=== PATIENT | female | born 1970 | race Caucasian/White ===

== ENCOUNTER 2017-11-09 10:09 | Emergency (ER) | payer MEDICAID ==
--- NOTE | 2017-11-09 11:39 | EDM.PDOC ---
ED HPI GENERAL MEDICAL PROBLEM - General Chief Complaint: Cardiovascular Problem Stated Complaint: HIGH BLOOD PRESSURE Time Seen by Provider: 11/09/17 11:31 Source of Information: Reports: Patient History Limitations: Reports: No Limitations - History of Present Illness INITIAL COMMENTS - FREE TEXT/NARRATIVE: 47-year-old female presents to the ED after being seen initially at the [facility] clinic and diagnosed with significant hypertension. BP there was greater than 190 and diastolic was around 114. Apparently the patient was diagnosed with hypertension nearly 2 years ago was on medication temporarily and discontinued. Without of this medication was most likely labetalol. She is relatively asymptomatic with no visual field changes no real headache. Perhaps increased fatigue. As far she knows she is not diabetic. She does several from being overweight. She is a never smoker and does not use street drugs. 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 She states she scratches at night - Past Surgical History Other GI Surgeries/Procedures: resection Social & Family History - Tobacco Use Smoking Status *Q: Never Smoker Second Hand Smoke Exposure: No - Alcohol Use Days Per Week of Alcohol Use: 0 Number of Drinks Per Day: 0 Total Drinks Per Week: 0 - Recreational Drug Use Recreational Drug Use: No - Living Situation & Occupation Living situation: Reports: Single Occupation: Unemployed ED ROS GENERAL - Review of Systems Review Of Systems: See Below Constitutional: Reports: Malaise, Fatigue. Denies: Fever, Chills HEENT: Reports: No Symptoms Respiratory: Reports: Shortness of Breath Cardiovascular: Reports: Blood Pressure Problem ( chronically), Dyspnea on Exertion (On exertion) Endocrine: Reports: Fatigue (see history of present illness ) GI/Abdominal: Reports: Constipation (Occasional problems) : Reports: No Symptoms Musculoskeletal: Reports: Back Pain, Joint Pain Skin: Reports: No Symptoms ([place] hips at times) Neurological: Reports: No Symptoms Psychiatric: Reports: No Symptoms ED EXAM, GENERAL - Physical Exam Exam: See Below Exam Limited By: Uncooperative General Appearance: WD/WN, Anxious, Mild Distress Eye Exam: Bilateral Eye: A-V [place] (Mild bilaterally), Normal Inspection ( Admits to being quite anxious and she is here but is starting to feel somewhat better.), PERRL Throat/Mouth: Normal Inspection, Normal Teeth, Normal Oropharynx, Normal Voice Head: Atraumatic, Normocephalic, Sinus Tenderness Neck: Normal Inspection, Supple, Non-Tender, Full Range of Motion Respiratory/Chest: No Respiratory Distress, Lungs Clear, Normal Breath Sounds, No Accessory Muscle Use, Chest Non-Tender Cardiovascular: Normal Peripheral Pulses, Regular Rate, Rhythm, No Edema, No Gallop, No Murmur GI/Abdominal: Other (Has a large wound just to the right of her umbilicus apparently developed a small bowel obstruction at age 26 and the wound dehisced became severely secondarily infected. Was packed open until it healed which took several months. Abdominal girth limits ability to palpate solid organs.). No: Guarding, Rigid, Rebound, Tender Back Exam: Normal Inspection, Full Range of Motion. No: CVA Tenderness (L), CVA Tenderness (R) Extremities: Normal Inspection, Normal Range of Motion, Non-Tender, Pedal Edema (1+ pitting edema both lower extremities) Neurological: Alert, Oriented ( to just above the ankles.), CN II-XII Intact, Normal Cognition, Normal Gait Psychiatric: Normal Affect, Normal Mood Skin Exam: Warm, Dry, Intact, Normal Color, No Rash EKG INTERPRETATION EKG Date: 11/09/17 Time: 10:22 Rhythm: Other (Sinus tachycardia) Rate (Beats/Min): 112 [place]: LAD-Left [place] Deviation (Borderline left axis deviation and +1) P-Wave: Enlarged (Evidence of by atrial hypertrophy.) QRS: Other (There is near Q-wave V1 to V4 there are also Q waves in 3 and aVF. Cannot rule out inferior wall myocardial infarction. There is decreased voltage in the limb leads. cannot rule out an old anteroseptal myocardial infarction.) ST-T: Normal QT: Normal EKG Interpretation Comments: Abnormal ECG Course - Vital Signs Last Recorded V/S: Last Vital Signs Temp 36.6 C 11/09/17 10:25 Pulse 97 11/09/17 15:00 Resp 18 11/09/17 15:00 BP 156/92 H 11/09/17 15:00 Pulse Ox 95 11/09/17 15:00 - Orders/Labs/Meds Orders: Active Orders 24 hr Category Date Time Status EKG Documentation Completion [RC] STAT Care 11/09/17 11:34 Active Peripheral IV Care [RC] . DIRECTED Care 11/09/17 11:48 Active Peripheral IV Insertion Adult [OM.PC] Stat Oth 11/09/17 11:48 Ordered Labs: Laboratory Tests 11/09/17 11/09/17 11/09/17 Range/Units 11:50 11:50 11:50 WBC 10.33 H (3.98-10.04) K/mm3 RBC 4.89 (3.98-5.22) M/mm3 Hgb 12.1 (11.2-15.7) gm/L Hct 39.4 (34.1-44.9) % MCV 80.6 (79.4-94.8) fl MCH 24.7 L (25.6-32.2) pg MCHC 30.7 L (32.2-35.5) g/dl RDW Std Deviation 43.8 (36.4-46.3) fL Plt Count 251 (182-369) K/mm3 MPV 11.4 (9.4-12.3) fl Neutrophils % (Manual) 83 H (40-60) % Band Neutrophils % 1 (0-10) % Lymphocytes % (Manual) 10 L (20-40) % Atypical Lymphs % 0 % Monocytes % (Manual) 4 (2-10) % Eosinophils % (Manual) 2 (0.7-5.8) % Basophils % (Manual) 0 L (0.1-1.2) Platelet Estimate Adequate Hypochromasia 1+ slight Microcytosis 1+ slight Macrocytosis 1+ slight RBC Morph Comment Not Reportable PT 10.4 (8.0-13.0) SECONDS INR 0.97 Sodium 140 (136-145) mEq/L Potassium 3.5 (3.5-5.1) mEq/L Chloride 102 (98-107) mEq/L Carbon Dioxide 28 (21-32) mEq/L Anion Gap 13.5 (5-15) BUN 7 (7-18) mg/dL Creatinine 0.5 L (0.55-1.02) mg/dL Est Cr Clr Drug Dosing 141.82 mL/min Estimated GFR (MDRD) > 60 (>60) mL/min BUN/Creatinine Ratio 14.0 (14-18) Glucose 107 H (74-106) mg/dL Hemoglobin A1c (4.50-6.20) % Calcium 8.8 (8.5-10.1) mg/dL Magnesium 1.7 L (1.8-2.4) mg/dl Total Bilirubin 0.4 (0.2-1.0) mg/dL AST 42 H (15-37) U/L ALT 31 (14-59) U/L Alkaline Phosphatase 129 H (46-116) U/L Troponin I < 0.017 (0.00-0.056) ng/mL C-Reactive Protein 2.1 H* (<1.0) mg/dL NT-Pro-B Natriuret Pep (0-125) pg/mL Total Protein 7.6 (6.4-8.2) g/dl Albumin 3.1 L (3.4-5.0) g/dl Globulin 4.5 gm/dL Albumin/Globulin Ratio 0.7 L (1-2) TSH 3rd Generation 1.446 (0.358-3.74) uIU/mL 11/09/17 11/09/17 Range/Units 11:50 11:50 WBC (3.98-10.04) K/mm3 RBC (3.98-5.22) M/mm3 Hgb (11.2-15.7) gm/L Hct (34.1-44.9) % MCV (79.4-94.8) fl MCH (25.6-32.2) pg MCHC (32.2-35.5) g/dl RDW Std Deviation (36.4-46.3) fL Plt Count (182-369) K/mm3 MPV (9.4-12.3) fl Neutrophils % (Manual) (40-60) % Band Neutrophils % (0-10) % Lymphocytes % (Manual) (20-40) % Atypical Lymphs % % Monocytes % (Manual) (2-10) % Eosinophils % (Manual) (0.7-5.8) % Basophils % (Manual) (0.1-1.2) Platelet Estimate Hypochromasia Microcytosis Macrocytosis RBC Morph Comment PT (8.0-13.0) SECONDS INR Sodium (136-145) mEq/L Potassium (3.5-5.1) mEq/L Chloride (98-107) mEq/L Carbon Dioxide (21-32) mEq/L Anion Gap (5-15) BUN (7-18) mg/dL Creatinine (0.55-1.02) mg/dL Est Cr Clr Drug Dosing mL/min Estimated GFR (MDRD) (>60) mL/min BUN/Creatinine Ratio (14-18) Glucose (74-106) mg/dL Hemoglobin A1c 5.00 (4.50-6.20) % Calcium (8.5-10.1) mg/dL Magnesium (1.8-2.4) mg/dl Total Bilirubin (0.2-1.0) mg/dL AST (15-37) U/L ALT (14-59) U/L Alkaline Phosphatase (46-116) U/L Troponin I (0.00-0.056) ng/mL C-Reactive Protein (<1.0) mg/dL NT-Pro-B Natriuret Pep 82 (0-125) pg/mL Total Protein (6.4-8.2) g/dl Albumin (3.4-5.0) g/dl Globulin gm/dL Albumin/Globulin Ratio (1-2) TSH 3rd Generation (0.358-3.74) uIU/mL Meds: Medications Discontinued Medications Generic Name Dose Route Start Last Admin Trade Name Freq PRN Reason Stop Dose Admin Amlodipine Besylate 10 mg 11/09/17 11:47 11/09/17 11:58 Norvasc PO 11/09/17 11:48 10 mg ONETIME ONE Administration Enalaprilat 1.25 mg 11/09/17 13:06 11/09/17 13:10 Vasotec Iv IVPUSH 11/09/17 13:07 1.25 mg ONETIME ONE Administration Labetalol HCl 20 mg 11/09/17 11:47 11/09/17 11:56 Normodyne IVPUSH 11/09/17 11:48 20 ml ONETIME ONE Administration Protocol Sodium Chloride 10 ml 11/09/17 11:48 11/09/17 11:59 Saline Flush FLUSH 10 ml ASDIRECTED PRN Administration Keep Vein Open - Radiology Interpretation Free Text/Narrative:: 47-year-old female sent across from [facility] for evaluation of uncontrolled hypertension. She has seen the doctor very often but blood pressure today at the clinic was greater than 195/114. She is relatively asymptomatic in terms of high blood pressure symptoms. There are no obvious and organ injuries or damage at this time. ECG is definitely abnormal however with possible old anteroseptal and inferior wall myocardial infarction. She shows no signs of congestive failure. BP drifted down to around 1 9299 at its lowest. She will therefore will require treatment. She will have a chest x-ray routine lab work and urinalysis performed. Given labetalol 20 mg IV bolus and Norvasc 10 mg by mouth. - Re-Assessments/Exams Free Text/Narrative Re-Assessment/Exam: 11/09/17 12:13 chest x-ray reveals moderate cardiomegaly. Lung gonzales are otherwise clear. 11/09/17 13:08 White count is 10.33 with 83% neutrophils 1% band cells reported. Hemoglobin is 12.1. Hematocrit is 39.4. Platelet count normal at 251, 000. PT is 10.4 with an INR of 0.97. Sodium was 140 with potassium low-normal at 3.5. Chloride 102 bicarbonate 28. And a gap is 13.5 with a BUN of 7. Creatinine is 0.5. EGFR is greater than 60. Glucose 107. Hemoglobin A1c is 5.0. Calcium 8.8. Magnesium slightly low at 1.7. Bilirubin 0.4 AST is mildly elevated at 42. Alkaline phosphatase is also mildly elevated 129. Cardiac markers reveal a troponin I of less than 0.017. C-reactive protein is mildly elevated at 2.1. BNP is normal at 82. TSH is 1.446. Normal 11/09/17 14:55: Patient is feeling improved. Blood pressures come down nicely. She had initial dose of labetalol 20 mg IV and Norvasc 10 mg by mouth. Subsequent he had Vasotec 1.25 mg given intravenously once labs returned and revealed normal renal function. Blood pressure at the time of discharge was 142 over 66. She will be discharged home on lisinopril 20 mg daily and Norvasc 10 mg daily with lisinopril to be taken tonight and again tomorrow morning and Norvasc at bedtime. She is to follow-up in the clinic within the next 10 days for blood pressure review. She has a cuff at home and will be started check her blood sugars on a regular random basis. Departure - Departure Time of Disposition: 15:09 Disposition: Home, Self-Care 01 Condition: Fair Clinical Impression: Essential hypertension Prescriptions: amLODIPine Besylate [Norvasc] 10 mg PO DAILY #30 tablet Lisinopril 20 mg PO DAILY #30 tablet Instructions: Hypertension, [id number] Referrals: Susan Yi PA-C [Primary Care Provider] - Forms: ED Department Discharge Additional Instructions: Evaluation the emergency room today in regards to uncontrolled high blood pressure. You have states 3 essential hypertension pressure was staying around 192 greater than 110. You're therefore treated in the emergency room with intravenous medication labetalol 20 mg and oral medications Norvasc 10 mg and intravenous Vasotec 1.25 mg to bring her blood pressure under control. BP at the time of discharge was 142/66. Treatment at home is Norvasc 10 mg daily and lisinopril 20 mg once daily. I would suggest taking one of the lisinopril tablets as soon as you get them today and start both once daily in the morning tomorrow. Check blood pressures at home and blood pressures will slowly improve over the next few weeks. Follow-up in the clinic in 2 weeks time with personal care provider Susan Yi. They continue all other current medications including your sleep aid and your - My Orders Last 24 Hours: My Active Orders 11/09/17 11:34 EKG Documentation Completion [RC] STAT 11/09/17 11:48 Peripheral IV Care [RC] . DIRECTED Peripheral IV Insertion Adult [OM.PC] Stat - Assessment/Plan Last 24 Hours: My Active Orders 11/09/17 11:34 EKG Documentation Completion [RC] STAT 11/09/17 11:48 Peripheral IV Care [RC] . DIRECTED Peripheral IV Insertion Adult [OM.PC] Stat
[2017-11-09] MEDS: Labetalol 100 MG/20 ML MDV IVPUSH ONE (11:56)
[2017-11-09] MEDS: amLODIPine 10 MG Tab PO ONE (11:58)
[2017-11-09] MEDS: Sodium Chloride 0.9% 10 ML Syringe FLUSH PRN (11:59)
--- NOTE | 2017-11-09 12:39 | CR ---
Chest: Portable view of the chest was obtained. Comparison: No prior chest x-ray. Heart size is slightly prominent but accentuated from portable technique. Mediastinum is normal. Lungs are clear. Bony grossly intact. Impression: 1. Nothing acute is identified on portable chest x-ray. Diagnostic code #1
[2017-11-09] MEDS: Enalaprilat 1.25 MG/ML SDV IVPUSH ONE (13:10)
[2017-11-09 15:28] VITALS: BP 156/92
== END 2017-11-09 15:25 | disposition home or self-care (01) ==
LOC: JD.ED 10:09
DX: I10 Essential (primary) hypertension (principal); Z91.041 Radiographic dye allergy status; Z79.899 Other long term (current) drug therapy
CPT/HCPCS: 36415; 71045; 80053; 83036; 83735; 83880; 84443; 84484; 85025; 85610; 86140; 93005; 96374; 96375; 99284; A9270; J7050; 93010

== ENCOUNTER 2018-11-25 11:37 | Emergency (ER) | payer MEDICAID ==
[2018-11-25 11:48] VITALS: BP 170/91
--- NOTE | 2018-11-25 14:04 | EDM.PDOC ---
ED HPI GENERAL MEDICAL PROBLEM - General Chief Complaint: Cardiovascular Problem Stated Complaint: HIGH BP - DIZZINESS Time Seen by Provider: 11/25/18 12:16 Source of Information: Reports: Patient, RN Notes Reviewed - History of Present Illness INITIAL COMMENTS - FREE TEXT/NARRATIVE: 48-year-old lady comes in with symptoms of mild shortness of breath, nonspecific dizziness for the last 2 or 3 days. She is on multiple medications for hypertension that was started about one year ago. She is only had maybe 1 follow-up visit since these meds were all prescribed about a year ago. She states her legs are chronically swollen and not really worse than usual at this time. Other than the shortness of breath no chest pain. No recent cough fever or chills. She is not known to be diabetic. She is chronically overweight with a current weight of 127 kg. - Related Data Allergies Allergy/AdvReac Type Severity Reaction Status Date / Time IV Contrast Dye Allergy Hives Uncoded 11/25/18 11:48 Home Meds: Home Meds amLODIPine Besylate [Norvasc] 10 mg PO DAILY #30 tablet 11/09/17 [Rx] Furosemide 20 mg PO DAILY #30 tablet 11/25/18 [Rx] Lisinopril 30 mg PO DAILY 11/25/18 [History] hydroCHLOROthiazide [Hydrochlorothiazide] 50 mg PO DAILY 11/25/18 [History] Past Medical History Cardiovascular History: Reports: Hypertension Other Cardiovascular History: pt states she had a murmur as a baby which resolved. 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 She states she scratches at night - Past Surgical History GI Surgical History: Reports: Appendectomy Other GI Surgeries/Procedures: resection Social & Family History - Tobacco Use Smoking Status *Q: Never Smoker - Caffeine Use Caffeine Use: Reports: Soda - Recreational Drug Use Recreational Drug Use: No - Living Situation & Occupation Living situation: Reports: Single Occupation: Unemployed ED ROS GENERAL - Review of Systems Review Of Systems: See Below Constitutional: Denies: Fever, Chills, Diaphoresis HEENT: Denies: Sinus Problem, Throat Pain Respiratory: Reports: Shortness of Breath Cardiovascular: Reports: Edema (Moderate bilateral chronically). Denies: Chest Pain GI/Abdominal: Denies: Abdominal Pain, Nausea, Vomiting Musculoskeletal: Denies: Back Pain, Leg Pain Skin: Reports: No Symptoms Neurological: Denies: Numbness, Tingling, Trouble Speaking, Difficulty Walking, Weakness ED EXAM, GENERAL - Physical Exam Exam: See Below General Appearance: Alert, No Apparent Distress Eye Exam: Bilateral Eye: PERRL Throat/Mouth: Normal Inspection, Normal Oropharynx Neck: Supple Respiratory/Chest: No Respiratory Distress, Lungs Clear, Normal Breath Sounds Cardiovascular: Tachycardia GI/Abdominal: Soft, Non-Tender Back Exam: No: CVA Tenderness (L), CVA Tenderness (R) Extremities: Pedal Edema. No: Leg Pain (Moderate bilateral), Increased Warmth, Redness Neurological: No Motor/Sensory Deficits Skin Exam: Warm, Dry, Normal Color Course - Vital Signs Last Recorded V/S: Last Vital Signs Temp 98.2 F 11/25/18 11:45 Pulse 121 H 11/25/18 11:45 Resp 18 11/25/18 11:45 BP 170/91 H 11/25/18 11:45 Pulse Ox 94 L 11/25/18 11:45 - Orders/Labs/Meds Orders: Active Orders 24 hr Category Date Time Status EKG 12 Lead [EKG Documentation Completion] [RC] STAT Care 11/25/18 12:27 Active Chest 1V Frontal [CR] Stat Exams 11/25/18 12:26 Taken Labs: Laboratory Tests 11/25/18 11/25/18 11/25/18 Range/Units 12:40 12:40 12:40 WBC 11.55 H (3.98-10.04) K/mm3 RBC 4.79 (3.98-5.22) M/mm3 Hgb 11.4 (11.2-15.7) gm/L Hct 39.8 (34.1-44.9) % MCV 83.1 (79.4-94.8) fl MCH 23.8 L (25.6-32.2) pg MCHC 28.6 L (32.2-35.5) g/dl RDW Std Deviation 54.3 H (36.4-46.3) fL Plt Count 256 (182-369) K/mm3 MPV 11.2 (9.4-12.3) fl Neut % (Auto) 81.2 H (34.0-71.1) % Lymph % (Auto) 11.2 L (19.3-51.7) % [place] % (Auto) 5.5 (4.7-12.5) % Eos % (Auto) 1.6 (0.7-5.8) Baso % (Auto) 0.2 (0.1-1.2) % Neut # (Auto) 9.37 H (1.56-6.13) K/mm3 Lymph # (Auto) 1.29 (1.18-3.74) K/mm3 [place] # (Auto) 0.64 H (0.24-0.36) K/mm3 Eos # (Auto) 0.19 (0.04-0.36) K/mm3 Baso # (Auto) 0.02 (0.01-0.08) K/mm3 Manual Slide Review Normal smear Sodium 139 (136-145) mEq/L Potassium 3.1 L (3.5-5.1) mEq/L Chloride 100 (98-107) mEq/L Carbon Dioxide 32 (21-32) mEq/L Anion Gap 10.1 (5-15) BUN 16 (7-18) mg/dL Creatinine 0.9 (0.55-1.02) mg/dL Est Cr Clr Drug Dosing 72.34 mL/min Estimated GFR (MDRD) > 60 (>60) mL/min BUN/Creatinine Ratio 17.8 (14-18) Glucose 115 H (74-106) mg/dL Calcium 9.1 (8.5-10.1) mg/dL Total Bilirubin 0.5 (0.2-1.0) mg/dL AST 36 (15-37) U/L ALT 30 (14-59) U/L Alkaline Phosphatase 120 H (46-116) U/L Total Protein 8.2 (6.4-8.2) g/dl Albumin 3.1 L (3.4-5.0) g/dl Globulin 5.1 gm/dL Albumin/Globulin Ratio 0.6 L (1-2) TSH 3rd Generation 2.105 (0.358-3.74) uIU/mL Urine Color (Yellow) Urine Appearance (Clear) Urine pH (5.0-8.0) Ur Specific [place] (1.005-1.030) Urine Protein (Negative) Urine Glucose (UA) (Negative) Urine Ketones (Negative) Urine Occult Blood (Negative) Urine Nitrite (Negative) Urine Bilirubin (Negative) Urine Urobilinogen (0.2-1.0) Ur Leukocyte Esterase (Negative) Urine RBC (0-5) /hpf Urine WBC (0-5) /hpf Ur Epithelial Cells (0-5) /hpf Urine Bacteria (FEW) /hpf Urine Mucus (FEW) /hpf 11/25/18 Range/Units 13:15 WBC (3.98-10.04) K/mm3 RBC (3.98-5.22) M/mm3 Hgb (11.2-15.7) gm/L Hct (34.1-44.9) % MCV (79.4-94.8) fl MCH (25.6-32.2) pg MCHC (32.2-35.5) g/dl RDW Std Deviation (36.4-46.3) fL Plt Count (182-369) K/mm3 MPV (9.4-12.3) fl Neut % (Auto) (34.0-71.1) % Lymph % (Auto) (19.3-51.7) % [place] % (Auto) (4.7-12.5) % Eos % (Auto) (0.7-5.8) Baso % (Auto) (0.1-1.2) % Neut # (Auto) (1.56-6.13) K/mm3 Lymph # (Auto) (1.18-3.74) K/mm3 [place] # (Auto) (0.24-0.36) K/mm3 Eos # (Auto) (0.04-0.36) K/mm3 Baso # (Auto) (0.01-0.08) K/mm3 Manual Slide Review Sodium (136-145) mEq/L Potassium (3.5-5.1) mEq/L Chloride (98-107) mEq/L Carbon Dioxide (21-32) mEq/L Anion Gap (5-15) BUN (7-18) mg/dL Creatinine (0.55-1.02) mg/dL Est Cr Clr Drug Dosing mL/min Estimated GFR (MDRD) (>60) mL/min BUN/Creatinine Ratio (14-18) Glucose (74-106) mg/dL Calcium (8.5-10.1) mg/dL Total Bilirubin (0.2-1.0) mg/dL AST (15-37) U/L ALT (14-59) U/L Alkaline Phosphatase (46-116) U/L Total Protein (6.4-8.2) g/dl Albumin (3.4-5.0) g/dl Globulin gm/dL Albumin/Globulin Ratio (1-2) TSH 3rd Generation (0.358-3.74) uIU/mL Urine Color Yellow (Yellow) Urine Appearance Clear (Clear) Urine pH 7.0 (5.0-8.0) Ur Specific [place] 1.015 (1.005-1.030) Urine Protein 1+ H (Negative) Urine Glucose (UA) Negative (Negative) Urine Ketones Negative (Negative) Urine Occult Blood 1+ H (Negative) Urine Nitrite Negative (Negative) Urine Bilirubin Negative (Negative) Urine Urobilinogen 1.0 (0.2-1.0) Ur Leukocyte Esterase Negative (Negative) Urine RBC 5-10 H (0-5) /hpf Urine WBC 0-5 (0-5) /hpf Ur Epithelial Cells 0-5 (0-5) /hpf Urine Bacteria Few (FEW) /hpf Urine Mucus Few (FEW) /hpf - Re-Assessments/Exams Free Text/Narrative Re-Assessment/Exam: 11/25/18 15:53 Labs did come back relatively normal. CXR shows very mild pulmonary congestion. Patient does have quite severe peripheral leg edema, good retention entire body and agree. Her blood pressure is mostly ran in the 140s to low 150s systolic. She did have some readings down into the 130s and one reading as low as 128 systolic. She does not feel dizzy or short of breath while here in the ED. Her heart rate continues to run about 105. I have elected to add furosemide 20 mg daily to her medical regimen. Urine did show a very small amount of protein. BUN/creatinine were good. Discharge instructions as documented. Departure - Departure Time of Disposition: 14:49 Disposition: Home, Self-Care 01 Condition: Fair Clinical Impression: Essential hypertension Prescriptions: Furosemide 20 mg PO DAILY #30 tablet Instructions: Hypertension, [id number] Referrals: Susan Yi PA-C [Primary Care Provider] - Forms: ED Department Discharge Additional Instructions: Continue your current blood pressure and other medications as prescribed, start Lasix or furosemide 20 mg daily. A prescription has been [facility]. Try avoid salt as best you can, elevate legs as much as possible when not walking. Try start a regular exercise program as best you can. Research the Mediterranean diet which is high in fruit and vegetables, moderate protein. Try avoid flour and sugar foods as best you can. Check your weight daily and keep a log for your follow-up clinic visit. Plan to see Susan in about 4-5 days for recheck. Call Tuesday morning for appointment. Return to ED as needed if symptoms worsening in any way. - My Orders Last 24 Hours: My Active Orders 11/25/18 12:26 Chest 1V Frontal [CR] Stat 11/25/18 12:27 EKG 12 Lead [EKG Documentation Completion] [RC] STAT - Assessment/Plan Last 24 Hours: My Active Orders 11/25/18 12:26 Chest 1V Frontal [CR] Stat 11/25/18 12:27 EKG 12 Lead [EKG Documentation Completion] [RC] STAT
--- NOTE | 2018-11-26 07:08 | CR ---
Chest: Portable view of the chest was obtained. Comparison: Prior chest x-ray of 11/09/17. Parenchymal density is seen behind the heart. This is most likely due to hiatal hernia. Heart size within normal limits for portable technique. Lungs are clear with no acute parenchymal change. Bony structures are grossly intact. Impression: 1. Probable hiatal hernia. 2. Nothing acute is otherwise seen on portable chest x-ray. Diagnostic code #2
== END 2018-11-25 15:17 | disposition home or self-care (01) ==
LOC: JD.ED 11:37
DX: I10 Essential (primary) hypertension (principal); Z79.899 Other long term (current) drug therapy; Z91.041 Radiographic dye allergy status
CPT/HCPCS: 36415; 71045; 71045-26; 80053; 81001; 84443; 85025; 93005; 93010; 99283; 99285-25

== ENCOUNTER 2019-02-15 11:43 | Emergency (ER) | payer MEDICAID ==
[2019-02-15 11:52] VITALS: BP 161/96
[2019-02-15] MEDS ORDERED: diphenhydrAMINE 50 MG/ML SDV IVPUSH ONE (12:07)
[2019-02-15] MEDS ORDERED: methylPREDNISolone Sodium Succinate 125 MG/2 ML SDV IVPUSH ONE (12:07)
[2019-02-15] MEDS ORDERED: Albuterol/Ipratropium 3.0-0.5 MG/3 ML Neb Soln NEB ONE (12:08)
[2019-02-15] MEDS ORDERED: Iohexol 350 MG/ML 75 ML Bottle IVPUSH ONE ×2 (12:18→12:45)
[2019-02-15] MEDS: Sodium Chloride 0.9% 10 ML Syringe FLUSH PRN ×2 (12:20→12:45)
[2019-02-15] MEDS ORDERED: Enoxaparin 120 MG/0.8 ML Syringe SUBCUT ONE (13:23)
--- NOTE | 2019-02-15 13:54 | CR ---
Chest: Portable view of the chest was obtained. Comparison: Prior chest x-ray of 11/25/18. Underpenetration is seen due to patient body habitus. Heart is enlarged. Lungs are grossly clear. Bony structures are grossly intact. Impression: 1. Underpenetrated chest x-ray due to patient body habitus. Within this limitation, nothing acute is definitely seen. Diagnostic code #2
--- NOTE | 2019-02-15 13:54 | CT ---
CT chest Technique: Multiple axial sections through the chest were obtained. Intravenous contrast was utilized. Findings: Pulmonary arteries are moderately well-opacified. Findings: Pulmonary embolism is seen within the distal right main pulmonary artery extending into the segmental branches and subsegmental branches of the right lower lung. Additional subsegmental pulmonary emboli are felt to be present within the lower left lung. Pulmonary emboli are also noted within a right upper lobe segmental branch. Mediastinum and hilar regions show small lymph nodes which are normal. No pericardial thickening is seen. Small portion of the visualized upper abdominal structures appear within normal limits. Lung window settings were reviewed which show acute parenchymal change. No pleural effusions are seen. Bone window settings were reviewed which show no acute osseous abnormality. Impression: 1. Findings compatible with pulmonary emboli as described above. 2. No other acute abnormality is seen. Diagnostic code #5
--- NOTE | 2019-02-15 15:26 | EDM.PDOC ---
ED HPI GENERAL MEDICAL PROBLEM - General Chief Complaint: Respiratory Problem Stated Complaint: [facility] Time Seen by Provider: 02/15/19 11:54 Source of Information: Reports: Patient, EMS History Limitations: Reports: No Limitations - History of Present Illness INITIAL COMMENTS - FREE TEXT/NARRATIVE: The patient presents by [facility] for left leg tightness and swelling. She also has shortness of breath and her oxygen saturations were very low at 65%. The patient says she has been having some tightness and swelling to her left leg. She also said she had some tingling and numbness in that leg at times. The pain and swelling is better now. She has no chest pain but she has been short of breath for about a week. She has no fever, chills or cough. She has no abdominal pain, nausea or vomiting. She says she has a history of blood clots in her legs before. She is not currently on any blood thinners. She is on medicine for hypertension. She is also on lasix for swelling in her legs. Onset: Gradual Duration: Day(s): Location: Reports: Lower Extremity, Left Quality: Reports: Ache (tightness) Severity: Mild Improves with: Reports: None Worsens with: Reports: None Associated Symptoms: Reports: Shortness of Breath. Denies: Confusion, Chest Pain, Cough, Fever/Chills, Headaches, Nausea/Vomiting Left Leg Pain Score (Numeric/FACES): 3 - Related Data Allergies Allergy/AdvReac Type Severity Reaction Status Date / Time IV Contrast Dye Allergy Hives Uncoded 11/25/18 11:48 Home Meds: Home Meds amLODIPine Besylate [Norvasc] 10 mg PO DAILY #30 tablet 11/09/17 [Rx] Lisinopril 30 mg PO DAILY 11/25/18 [History] Furosemide 40 mg PO DAILY 02/15/19 [History] Past Medical History - Past Health History Medical/Surgical History: Denies Medical/Surgical History Cardiovascular History: Reports: Hypertension Other Cardiovascular History: pt states she had a murmur as a baby which resolved. 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 She states she scratches at night - Past Surgical History GI Surgical History: Reports: Appendectomy Other GI Surgeries/Procedures: resection Social & Family History - Family History Family Medical History: Noncontributory - Tobacco Use Smoking Status *Q: Never Smoker - Caffeine Use Caffeine Use: Reports: Soda - Recreational Drug Use Recreational Drug Use: No - Living Situation & Occupation Living situation: Reports: Single Occupation: Unemployed ED ROS GENERAL - Review of Systems Review Of Systems: See Below Constitutional: Reports: No Symptoms HEENT: Reports: No Symptoms Respiratory: Reports: Shortness of Breath. Denies: Cough Cardiovascular: Reports: Edema. Denies: Chest Pain Endocrine: Reports: No Symptoms GI/Abdominal: Reports: No Symptoms : Reports: No Symptoms Musculoskeletal: Reports: Other (Left leg edema and tightness) ED EXAM, GENERAL - Physical Exam Exam: See Below Exam Limited By: No Limitations General Appearance: Alert, No Apparent Distress Ears: Normal External Exam Nose: Normal Inspection Head: Atraumatic, Normocephalic Neck: Normal Inspection Respiratory/Chest: No Respiratory Distress, Decreased Breath Sounds Cardiovascular: Regular Rate, Rhythm, No Murmur, Other (Bilateral leg edema with 2+ on the right and 3+ on the left. Plapable pulses to the right foot. Good capillary refill to the left foot. Hard to get a pulse.) GI/Abdominal: Soft, Non-Tender, No Organomegaly, No Mass Back Exam: Normal Inspection Extremities: Other (bilateral leg edema 3+ to the left leg and 2+ to the right leg. Good pulses to the right leg. Hard to palpate and hard to get a pulse with dopplar on the left foot but good capillary refill.) EKG INTERPRETATION EKG Date: 02/15/19 Time: 12:03 Rhythm: Other (sinus tachycardia) Rate (Beats/Min): 114 [place]: Normal P-Wave: Present QRS: Normal ST-T: Normal QT: Normal EKG Interpretation Comments: Q waves in the anterior leads Course - Vital Signs Last Recorded V/S: Last Vital Signs Temp 98.8 F 02/15/19 11:48 Pulse 116 H 02/15/19 11:48 Resp 16 02/15/19 11:48 BP 161/96 H 02/15/19 11:48 Pulse Ox 99 02/15/19 12:08 - Orders/Labs/Meds Orders: Active Orders 24 hr Category Date Time Status Cardiac Monitoring [RC] . DIRECTED Care 02/15/19 12:05 Active EKG Documentation Completion [RC] STAT Care 02/15/19 12:05 Active Oxygen Therapy [RC] PRN Care 02/15/19 12:05 Active Peripheral IV Care [RC] . DIRECTED Care 02/15/19 12:05 Active RT Aerosol Therapy [RC] ASDIRECTED Care 02/15/19 12:08 Active Sodium Chloride 0.9% [Saline Flush] Med 02/15/19 12:05 Active 10 ml FLUSH ASDIRECTED PRN Peripheral IV Insertion Adult [OM.PC] Stat Oth 02/15/19 12:05 Ordered Medication Orders Sodium Chloride (Saline Flush) 10 ml FLUSH ASDIRECTED PRN PRN Reason: Keep Vein Open Last Admin: 02/15/19 12:45 Dose: 10 ml Admin: 02/15/19 12:20 Dose: 10 ml Labs: Laboratory Tests 02/15/19 02/15/19 02/15/19 Range/Units 12:05 12:05 12:05 WBC 11.79 H (3.98-10.04) K/mm3 RBC 4.76 (3.98-5.22) M/mm3 Hgb 10.8 L (11.2-15.7) gm/L Hct 38.2 (34.1-44.9) % MCV 80.3 (79.4-94.8) fl MCH 22.7 L (25.6-32.2) pg MCHC 28.3 L (32.2-35.5) g/dl RDW Std Deviation 52.5 H (36.4-46.3) fL Plt Count 190 (182-369) K/mm3 MPV 10.6 (9.4-12.3) fl Neut % (Auto) 79.4 H (34.0-71.1) % Lymph % (Auto) 12.0 L (19.3-51.7) % [place] % (Auto) 6.3 (4.7-12.5) % Eos % (Auto) 1.8 (0.7-5.8) Baso % (Auto) 0.2 (0.1-1.2) % Neut # (Auto) 9.37 H (1.56-6.13) K/mm3 Lymph # (Auto) 1.42 (1.18-3.74) K/mm3 [place] # (Auto) 0.74 H (0.24-0.36) K/mm3 Eos # (Auto) 0.21 (0.04-0.36) K/mm3 Baso # (Auto) 0.02 (0.01-0.08) K/mm3 Manual Slide Review Abnormal smear D-Dimer, Quantitative 4.73 H (0.19-0.50) mg/L Sodium 142 (136-145) mEq/L Potassium 3.2 L (3.5-5.1) mEq/L Chloride 104 (98-107) mEq/L Carbon Dioxide 29 (21-32) mEq/L Anion Gap 12.2 (5-15) BUN 14 (7-18) mg/dL Creatinine 0.7 (0.55-1.02) mg/dL Est Cr Clr Drug Dosing 96.62 mL/min Estimated GFR (MDRD) > 60 (>60) mL/min BUN/Creatinine Ratio 20.0 H (14-18) Glucose 105 (74-106) mg/dL Calcium 9.1 (8.5-10.1) mg/dL Total Bilirubin 0.6 (0.2-1.0) mg/dL AST 32 (15-37) U/L ALT 29 (14-59) U/L Alkaline Phosphatase 123 H (46-116) U/L Troponin I 1.710 H* (0.00-0.056) ng/mL NT-Pro-B Natriuret Pep (0-125) pg/mL Total Protein 7.3 (6.4-8.2) g/dl Albumin 2.9 L (3.4-5.0) g/dl Globulin 4.4 gm/dL Albumin/Globulin Ratio 0.7 L (1-2) 02/15/19 Range/Units 12:05 WBC (3.98-10.04) K/mm3 RBC (3.98-5.22) M/mm3 Hgb (11.2-15.7) gm/L Hct (34.1-44.9) % MCV (79.4-94.8) fl MCH (25.6-32.2) pg MCHC (32.2-35.5) g/dl RDW Std Deviation (36.4-46.3) fL Plt Count (182-369) K/mm3 MPV (9.4-12.3) fl Neut % (Auto) (34.0-71.1) % Lymph % (Auto) (19.3-51.7) % [place] % (Auto) (4.7-12.5) % Eos % (Auto) (0.7-5.8) Baso % (Auto) (0.1-1.2) % Neut # (Auto) (1.56-6.13) K/mm3 Lymph # (Auto) (1.18-3.74) K/mm3 [place] # (Auto) (0.24-0.36) K/mm3 Eos # (Auto) (0.04-0.36) K/mm3 Baso # (Auto) (0.01-0.08) K/mm3 Manual Slide Review D-Dimer, Quantitative (0.19-0.50) mg/L Sodium (136-145) mEq/L Potassium (3.5-5.1) mEq/L Chloride (98-107) mEq/L Carbon Dioxide (21-32) mEq/L Anion Gap (5-15) BUN (7-18) mg/dL Creatinine (0.55-1.02) mg/dL Est Cr Clr Drug Dosing mL/min Estimated GFR (MDRD) (>60) mL/min BUN/Creatinine Ratio (14-18) Glucose (74-106) mg/dL Calcium (8.5-10.1) mg/dL Total Bilirubin (0.2-1.0) mg/dL AST (15-37) U/L ALT (14-59) U/L Alkaline Phosphatase (46-116) U/L Troponin I (0.00-0.056) ng/mL NT-Pro-B Natriuret Pep 2853 H (0-125) pg/mL Total Protein (6.4-8.2) g/dl Albumin (3.4-5.0) g/dl Globulin gm/dL Albumin/Globulin Ratio (1-2) Meds: Medications Generic Name Dose Route Start Last Admin Trade Name Freq PRN Reason Stop Dose Admin Sodium Chloride 10 ml 02/15/19 12:05 02/15/19 12:45 Saline Flush FLUSH 10 ml ASDIRECTED PRN Administration Keep Vein Open Discontinued Medications Generic Name Dose Route Start Last Admin Trade Name Freq PRN Reason Stop Dose Admin Albuterol/Ipratropium 3 ml 02/15/19 12:08 02/15/19 12:55 Duoneb 3.0-0.5 Mg/3 Ml NEB 02/15/19 12:09 3 ml ONETIME ONE Administration Diphenhydramine HCl 50 mg 02/15/19 12:07 02/15/19 12:16 Benadryl IVPUSH 02/15/19 12:08 50 mg ONETIME ONE Administration Enoxaparin Sodium 120 mg 02/15/19 13:23 02/15/19 13:37 Lovenox SUBCUT 02/15/19 13:24 120 mg ONETIME ONE Administration Iohexol 75 ml 02/15/19 12:18 02/15/19 12:44 Omnipaque IVPUSH 02/15/19 12:19 75 ml ONETIME ONE Administration Iohexol 25 ml 02/15/19 12:45 02/15/19 12:46 Omnipaque IVPUSH 02/15/19 12:46 25 ml ONETIME ONE Administration Methylprednisolone Sodium Succinate 125 mg 02/15/19 12:07 02/15/19 12:19 Solu-Medrol IVPUSH 02/15/19 12:08 125 mg ONETIME ONE Administration - Re-Assessments/Exams Free Text/Narrative Re-Assessment/Exam: 02/15/19 15:31 I ordered an IV saline lock, EKG, CXR, labs, oxygen, duoneb and CT angio of her chest. Her EKG shows a sinus tachycardia with Q waves in the anterior leads. Her CXR shows underpenetrated chest x-ray due to patient body habitus. Within this limitation, nothing acute is definitely seen. Her WBC was elevated at 11.79. Her Hgb was a little low at 10.8. Her D-dimer was elevated at 4.73. Her K was low at 3.2. Her Alk phos was elevated at 123. Her troponin was elevated at 1.710. Her BNP was elevated at 2853. She is allergic to IV dye so I ordered solu-medrol 125mg IV and benadryl 50mg IV. She tolerated the procedure well. The CT angio of her chest shows pulmonary embolism is seen within the distal right main pulmonary artery extending into the segmental branches and subsegmental branches of the right lung. Additional subsegmental pulmonary emboli are felt to be present within the lower left lung. Pulmonary emboli are also noted within a right upper lobe segmental branch. I have ordered lovenox sucutaneous. She is still needing oxygen to keep her saturations above the 90s. She will need to be admitted. I do not feel she is appropriate for admission here. I called [facility] in [place] and they will call me back after they have IR look at the CTs. Dr Harris accepted the patient. Departure - Departure Time of Disposition: 16:15 Disposition: DC/Tfer to [facility] 02 Condition: Serious Clinical Impression: Elevated troponin, Hypoxia Pulmonary emboli Qualifiers: Pulmonary embolism type: unspecified Chronicity: acute Acute cor pulmonale presence: without acute cor pulmonale Qualified Code(s): I26.99 - Other pulmonary embolism without acute cor pulmonale - Discharge Information Referrals: Susan Yi PA-C [Primary Care Provider] - Forms: ED Department Discharge - My Orders Last 24 Hours: My Active Orders 02/15/19 12:05 Cardiac Monitoring [RC] . DIRECTED EKG Documentation Completion [RC] STAT Oxygen Therapy [RC] PRN Peripheral IV Care [RC] . DIRECTED Sodium Chloride 0.9% [Saline Flush] 10 ml FLUSH ASDIRECTED PRN Peripheral IV Insertion Adult [OM.PC] Stat 02/15/19 12:08 RT Aerosol Therapy [RC] ASDIRECTED - Assessment/Plan Last 24 Hours: My Active Orders 02/15/19 12:05 Cardiac Monitoring [RC] . DIRECTED EKG Documentation Completion [RC] STAT Oxygen Therapy [RC] PRN Peripheral IV Care [RC] . DIRECTED Sodium Chloride 0.9% [Saline Flush] 10 ml FLUSH ASDIRECTED PRN Peripheral IV Insertion Adult [OM.PC] Stat 02/15/19 12:08 RT Aerosol Therapy [RC] ASDIRECTED
== END 2019-02-15 16:34 ==
LOC: JD.ED 11:43
DX: I26.99 Other pulmonary embolism without acute cor pulmonale (principal); R79.89 Other specified abnormal findings of blood chemistry; I10 Essential (primary) hypertension; Z79.899 Other long term (current) drug therapy; Z91.041 Radiographic dye allergy status
CPT/HCPCS: 36415; 71045; 71275; 80053; 83880; 84484; 85025; 85379; 93005; 94640; 96372; 96374; 96375; 99285; J1200; J1650; J2930; Q9967; 93010; J7620-GY

== ENCOUNTER 2019-05-22 12:37 | Emergency (ER) | payer MEDICAID ==
[2019-05-22 13:06] VITALS: BP 136/81; PULSE 102
[2019-05-22] MEDS ORDERED: Sodium Chloride 0.9% 10 ML Syringe FLUSH PRN (13:50)
--- NOTE | 2019-05-22 13:55 | EDM.PDOC ---
ED HPI GENERAL MEDICAL PROBLEM - General Chief Complaint: Cardiovascular Problem Stated Complaint: DIZZY AND HEART PALPITATIONS Time Seen by Provider: 05/22/19 13:33 Source of Information: Reports: Patient History Limitations: Reports: No Limitations - History of Present Illness INITIAL COMMENTS - FREE TEXT/NARRATIVE: 48-year-old female presents for evaluation and treatment of dizziness and heart palpitations. Patient had a PE blood clot in February. She had a large pe which required transfer to [place]. It sounds as if she had thrombolytics injected by IR right at the site of the clot. She is currently on Coumadin. She had an INR checked last week and it was okay. Patient reports for the last 2 days she has been experiencing chest palpitations , dizziness and states that she does not feel right. She denies any chest pain, leg pain or swelling. She denies any fevers, chills, syncope or any hemoptysis. She states she has been coughing. She is on oxygen from her recent PE. She states that this time she is down to his 1 L of oxygen at night. Primary care provider is Susan Yi. - Related Data Allergies Allergy/AdvReac Type Severity Reaction Status Date / Time IV Contrast Dye Allergy Hives Uncoded 11/25/18 11:48 Home Meds: Home Meds amLODIPine Besylate [Norvasc] 10 mg PO DAILY #30 tablet 11/09/17 [Rx] Lisinopril 30 mg PO DAILY 11/25/18 [History] Furosemide 40 mg PO DAILY 02/15/19 [History] Past Medical History - Past Health History Medical/Surgical History: Denies Medical/Surgical History HEENT History: Reports: None Cardiovascular History: Reports: Hypertension Other Cardiovascular History: pt states she had a murmur as a baby which resolved. 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 She states she scratches at night - Infectious Disease History Infectious Disease History: Reports: None - Past Surgical History Head Surgeries/Procedures: Reports: None Other Cardiovascular Surgeries/Procedures: Pt had DVT that turned into PE. Other Respiratory Surgeries/Procedures: Pt thinks she had a stent placed into the lungs for the blood clot. GI Surgical History: Reports: Appendectomy Other GI Surgeries/Procedures: resection Social & Family History - Family History Family Medical History: Noncontributory - Tobacco Use Smoking Status *Q: Never Smoker - Caffeine Use Caffeine Use: Reports: Coffee, Soda - Recreational Drug Use Recreational Drug Use: No - Living Situation & Occupation Living situation: Reports: Single Occupation: Unemployed ED ROS GENERAL - Review of Systems Review Of Systems: See Below Constitutional: Reports: Malaise. Denies: Fever, Chills Respiratory: Reports: Cough. Denies: Hemoptysis Cardiovascular: Reports: Palpitations. Denies: Chest Pain, Edema, Syncope Musculoskeletal: Denies: Leg Pain Neurological: Reports: Dizziness ED EXAM, GENERAL - Physical Exam Exam: See Below Exam Limited By: No Limitations General Appearance: Alert, WD/WN, No Apparent Distress, Anxious, Obese Eye Exam: Bilateral Eye: Normal Inspection Ears: Normal External Exam Nose: Normal Inspection Throat/Mouth: Normal Inspection, Normal Lips, Normal Voice, No Airway Compromise Neck: Normal Inspection Respiratory/Chest: No Respiratory Distress, Lungs Clear, Normal Breath Sounds Cardiovascular: Normal Peripheral Pulses, Regular Rate, Rhythm, Systolic Murmur GI/Abdominal: Normal Bowel Sounds, Soft, Non-Tender Extremities: Normal Inspection, No Pedal Edema. No: Skylar's Sign Neurological: Alert, Oriented, Normal Cognition Psychiatric: Normal Affect, Normal Mood Skin Exam: Warm, Dry, Normal Color EKG INTERPRETATION EKG Date: 05/22/19 Time: 15:22 Rhythm: NSR Rate (Beats/Min): 99 [place]: Normal P-Wave: Present QRS: Normal ST-T: Normal QT: Normal EKG Interpretation Comments: NSR at 99 bpm. No acute changes. Q waves V1-V4. Reviewed by myself and Dr. Mejia. Course - Vital Signs Last Recorded V/S: Last Vital Signs Temp 98.3 F 05/22/19 13:03 Pulse 102 H 05/22/19 13:03 Resp 17 05/22/19 13:03 BP 136/81 05/22/19 13:03 Pulse Ox 97 05/22/19 13:03 - Orders/Labs/Meds Labs: Laboratory Tests 05/22/19 05/22/19 05/22/19 Range/Units 14:00 14:00 14:00 WBC 12.40 H (3.98-10.04) K/mm3 RBC 4.71 (3.98-5.22) M/mm3 Hgb 12.0 (11.2-15.7) gm/L Hct 38.9 (34.1-44.9) % MCV 82.6 (79.4-94.8) fl MCH 25.5 L (25.6-32.2) pg MCHC 30.8 L (32.2-35.5) g/dl RDW Std Deviation 48.8 H (36.4-46.3) fL Plt Count 268 D (182-369) K/mm3 MPV 11.1 (9.4-12.3) fl Neut % (Auto) 78.9 H (34.0-71.1) % Lymph % (Auto) 14.1 L (19.3-51.7) % [place] % (Auto) 5.4 (4.7-12.5) % Eos % (Auto) 1.2 (0.7-5.8) Baso % (Auto) 0.2 (0.1-1.2) % Neut # (Auto) 9.77 H (1.56-6.13) K/mm3 Lymph # (Auto) 1.75 (1.18-3.74) K/mm3 [place] # (Auto) 0.67 H (0.24-0.36) K/mm3 Eos # (Auto) 0.15 (0.04-0.36) K/mm3 Baso # (Auto) 0.03 (0.01-0.08) K/mm3 Manual Slide Review Abnormal smear PT (9.7-12.0) SECONDS INR D-Dimer, Quantitative 0.20 (0.19-0.50) mg/L Sodium 140 (136-145) mEq/L Potassium 3.8 (3.5-5.1) mEq/L Chloride 103 (98-107) mEq/L Carbon Dioxide 28 (21-32) mEq/L Anion Gap 12.8 (5-15) BUN 12 (7-18) mg/dL Creatinine 0.7 (0.55-1.02) mg/dL Est Cr Clr Drug Dosing 103.83 mL/min Estimated GFR (MDRD) > 60 (>60) mL/min BUN/Creatinine Ratio 17.1 (14-18) Glucose 98 (74-106) mg/dL Calcium 9.1 (8.5-10.1) mg/dL Magnesium 1.9 (1.8-2.4) mg/dl Total Bilirubin 0.3 (0.2-1.0) mg/dL AST 25 (15-37) U/L ALT 34 (14-59) U/L Alkaline Phosphatase 115 (46-116) U/L Troponin I < 0.017 (0.00-0.056) ng/mL C-Reactive Protein 0.9 (<1.0) mg/dL Total Protein 8.2 (6.4-8.2) g/dl Albumin 3.4 (3.4-5.0) g/dl Globulin 4.8 gm/dL Albumin/Globulin Ratio 0.7 L (1-2) TSH 3rd Generation 1.514 (0.358-3.74) uIU/mL 05/22/19 Range/Units 14:00 WBC (3.98-10.04) K/mm3 RBC (3.98-5.22) M/mm3 Hgb (11.2-15.7) gm/L Hct (34.1-44.9) % MCV (79.4-94.8) fl MCH (25.6-32.2) pg MCHC (32.2-35.5) g/dl RDW Std Deviation (36.4-46.3) fL Plt Count (182-369) K/mm3 MPV (9.4-12.3) fl Neut % (Auto) (34.0-71.1) % Lymph % (Auto) (19.3-51.7) % [place] % (Auto) (4.7-12.5) % Eos % (Auto) (0.7-5.8) Baso % (Auto) (0.1-1.2) % Neut # (Auto) (1.56-6.13) K/mm3 Lymph # (Auto) (1.18-3.74) K/mm3 [place] # (Auto) (0.24-0.36) K/mm3 Eos # (Auto) (0.04-0.36) K/mm3 Baso # (Auto) (0.01-0.08) K/mm3 Manual Slide Review PT 38.1 H (9.7-12.0) SECONDS INR 3.77 D-Dimer, Quantitative (0.19-0.50) mg/L Sodium (136-145) mEq/L Potassium (3.5-5.1) mEq/L Chloride (98-107) mEq/L Carbon Dioxide (21-32) mEq/L Anion Gap (5-15) BUN (7-18) mg/dL Creatinine (0.55-1.02) mg/dL Est Cr Clr Drug Dosing mL/min Estimated GFR (MDRD) (>60) mL/min BUN/Creatinine Ratio (14-18) Glucose (74-106) mg/dL Calcium (8.5-10.1) mg/dL Magnesium (1.8-2.4) mg/dl Total Bilirubin (0.2-1.0) mg/dL AST (15-37) U/L ALT (14-59) U/L Alkaline Phosphatase (46-116) U/L Troponin I (0.00-0.056) ng/mL C-Reactive Protein (<1.0) mg/dL Total Protein (6.4-8.2) g/dl Albumin (3.4-5.0) g/dl Globulin gm/dL Albumin/Globulin Ratio (1-2) TSH 3rd Generation (0.358-3.74) uIU/mL Meds: Medications Discontinued Medications Generic Name Dose Route Start Last Admin Trade Name Freq PRN Reason Stop Dose Admin Sodium Chloride 10 ml 05/22/19 13:50 05/22/19 14:05 Saline Flush FLUSH 10 ml ASDIRECTED PRN Administration Keep Vein Open - Radiology Interpretation Free Text/Narrative:: Chest: Two views of the chest were obtained. Comparison: Prior CT chest of 02/15/19 and chest x-ray of 02/15/19 and 11/09/17. Heart is slightly prominent. Lungs are clear with no acute parenchymal change. Bony structures are within normal limits for the patient's age. Impression: 1. Nothing acute is appreciated on two-view chest x-ray. - Re-Assessments/Exams Free Text/Narrative Re-Assessment/Exam: 05/22/19 16:25 I reviewed the labs and imaging with the patient. I will discharge her home. We discussed a Holter monitor. she's not having symptoms since entering the ER. Likely would not catch anything if she went any A. fib or any abnormal rhythms as thi likely would be caught in [place] when she was there for 10 days. We ultimately decided that she'll see her primary care provider and follow first they will discuss further she continues to have symptoms. Discharge instructions as documented. Departure - Departure Time of Disposition: 16:26 Disposition: Home, Self-Care 01 Condition: Good Clinical Impression: Heart palpitations Instructions: Palpitations, [id number] Referrals: Susan Yi PA-C [Primary Care Provider] - Forms: ED Department Discharge Additional Instructions: Rest. make sure you are drinking plenty of fluids. Follow-up with your primary care provider next week for recheck of your symptoms. Please return to the ER if your symptoms change or worsen.
--- NOTE | 2019-05-22 19:11 | CR ---
Chest: Two views of the chest were obtained. Comparison: Prior CT chest of 02/15/19 and chest x-ray of 02/15/19 and 11/09/17. Heart is slightly prominent. Lungs are clear with no acute parenchymal change. Bony structures are within normal limits for the patient's age. Impression: 1. Nothing acute is appreciated on two-view chest x-ray. Diagnostic code #2
== END 2019-05-22 16:37 | disposition home or self-care (01) ==
LOC: JD.ED 12:37
DX: R00.2 Palpitations (principal); I10 Essential (primary) hypertension; Z79.01 Long term (current) use of anticoagulants; Z79.899 Other long term (current) drug therapy; Z91.041 Radiographic dye allergy status
CPT/HCPCS: 36415; 71046; 71046-26; 80053; 83735; 84443; 84484; 85025; 85379; 85610; 86140; 93005; 93010; 99283; 99285-25

== ENCOUNTER 2020-01-09 07:21 | Emergency (ER) | payer MEDICAID ==
--- NOTE | 2020-01-09 07:59 | EDM.PDOC ---
ED HPI GENERAL MEDICAL PROBLEM - General Chief Complaint: Chest Pain Stated Complaint: CHEST PAIN/NAUSEA/DIZZY Time Seen by Provider: 01/09/20 07:28 Source of Information: Reports: Patient History Limitations: Reports: No Limitations - History of Present Illness INITIAL COMMENTS - FREE TEXT/NARRATIVE: TRIAGE NOTE -- Has been having intermittent heart palpitations for the past few days and has occasional sharp chest pain No SOB vertigo or nausea As above. Patient has had a sense of rapid heart rate. There has been some chest pain but it is described as sharp brief and mid chest. No paulo shortness of breath associated with this. No sweating. No nausea or vomiting. No radiation of pain. Patient is in the low 100s (108) on monitor and says she feels just fine. Says she has had some sort of tachycardia in the past. Pretty sure it is not atrial fibrillation. Does not recall any specific work-up and says she is not on any medication for heart rate or rhythm. She has a communications editor in [place]. She is not aware of any evaluation or intervention for the tachycardia in the past. She has a history of pulmonary emboli and has been on Coumadin for the past year. Risk factors also include hypertension. She is also noted to be obese. She has not taken any medication specifically for this and has not made any attempt to moderate symptoms. As noted she feels perfectly comfortable at the present time. There has not been any fever, shortness of breath, respiratory symptoms, or any other symptom of acute medical illness leading up to this or otherwise. - Related Data Allergies Allergy/AdvReac Type Severity Reaction Status Date / Time IV Contrast Dye Allergy Hives Uncoded 01/09/20 07:33 Home Meds: Home Meds Lisinopril 30 mg PO DAILY 11/25/18 [History] Furosemide 40 mg PO BID 02/15/19 [History] Multivitamin 1 tab PO DAILY 01/09/20 [History] Potassium Chloride [Klor-Con M20] 20 meq PO TID 01/09/20 [History] Rosuvastatin [Crestor] 20 mg PO DAILY 01/09/20 [History] Warfarin Sodium [Jantoven] 5 mg PO MO 01/09/20 [History] Warfarin Sodium [Jantoven] 10 mg PO [id number] 01/09/20 [History] amLODIPine Besylate [Norvasc] 5 mg PO DAILY 01/09/20 [History] Past Medical History - Past Health History Medical/Surgical History: Denies Medical/Surgical History HEENT History: Reports: None Cardiovascular History: Reports: High Cholesterol, Hypertension Other Cardiovascular History: pt states she had a murmur as a baby which resolved. Pt has current elevated Blood Pressure and edema Respiratory History: Reports: PE Gastrointestinal History: Reports: Bowel Obstruction Genitourinary History: Reports: None CYCLE CONSULTANT History: Reports: Musculoskeletal History: Reports: None Neurological History: Reports: None Psychiatric History: Reports: None Endocrine/Metabolic History: Reports: Obesity/BMI 30+ Hematologic History: Reports: Anticoagulation Therapy Other Hematologic History: with colon surgery Immunologic History: Reports: None Oncologic (Cancer) History: Reports: None Other Dermatologic History: rash on legs bilateral and lower abdomen. She states she scratches at night - Infectious Disease History Infectious Disease History: Reports: None - Past Surgical History Head Surgeries/Procedures: Reports: None Other Cardiovascular Surgeries/Procedures: Pt had DVT that turned into PE. Other Respiratory Surgeries/Procedures: Pt thinks she had a stent placed into the lungs for the blood clot. GI Surgical History: Reports: Appendectomy Other GI Surgeries/Procedures: resection Social & Family History - Family History Family Medical History: Noncontributory - Tobacco Use Smoking Status *Q: Never Smoker - Caffeine Use Caffeine Use: Reports: Soda - Recreational Drug Use Recreational Drug Use: No - Living Situation & Occupation Living situation: Reports: Single Occupation: Unemployed ED ROS GENERAL - Review of Systems Review Of Systems: Comprehensive ROS is negative, except as noted in HPI. ED EXAM, GENERAL - Physical Exam Exam: See Below Exam Limited By: No Limitations General Appearance: Alert, WD/WN, No Apparent Distress Eye Exam: Bilateral Eye: EOMI, PERRL Ears: Normal External Exam Nose: Normal Inspection Throat/Mouth: Normal Inspection Head: Atraumatic, Normocephalic Neck: Normal Inspection, Supple, Non-Tender Respiratory/Chest: No Respiratory Distress, Lungs Clear, Normal Breath Sounds, No Accessory Muscle Use Cardiovascular: Tachycardia (Mild) GI/Abdominal: Soft, Non-Tender Back Exam: Normal Inspection Extremities: Normal Inspection, No Pedal Edema, Normal Capillary Refill Neurological: Alert, Oriented, Normal Cognition, No Motor/Sensory Deficits Psychiatric: Normal Affect, Normal Mood Skin Exam: Warm, Dry Course - Vital Signs Last Recorded V/S: Last Vital Signs Temp 36.9 C 01/09/20 07:30 Pulse 111 H 01/09/20 07:30 Resp 24 H 01/09/20 07:30 BP 149/93 H 01/09/20 07:30 Pulse Ox 95 01/09/20 07:30 - Orders/Labs/Meds Orders: Active Orders 24 hr Category Date Time Status EKG Documentation Completion [RC] STAT Care 01/09/20 07:39 Active Labs: Laboratory Tests 01/09/20 01/09/20 01/09/20 Range/Units 07:30 07:30 07:30 WBC 12.74 H (3.98-10.04) K/mm3 RBC 5.49 H (3.98-5.22) M/mm3 Hgb 13.6 D (11.2-15.7) gm/dl Hct 45.8 H (34.1-44.9) % MCV 83.4 (79.4-94.8) fl MCH 24.8 L (25.6-32.2) pg MCHC 29.7 L (32.2-35.5) g/dl RDW Std Deviation 54.9 H (36.4-46.3) fL Plt Count 303 (182-369) K/mm3 MPV 11.4 (9.4-12.3) fl Neutrophils % (Manual) 78 H (40-60) % Band Neutrophils % 0 (0-10) % Lymphocytes % (Manual) 15 L (20-40) % Atypical Lymphs % 0 % Monocytes % (Manual) 6 (2-10) % Eosinophils % (Manual) 1 (0.7-5.8) % Basophils % (Manual) 0 L (0.1-1.2) Platelet Estimate Adequate Hypochromasia 1+ slight Poikilocytosis 1+ slight Anisocytosis 1+ slight RBC Morph Comment Not Reportable PT 25.9 H D (9.7-12.0) SECONDS INR 2.50 APTT (22-31) SECONDS Sodium 139 (136-145) mEq/L Potassium 4.2 (3.5-5.1) mEq/L Chloride 100 (98-107) mEq/L Carbon Dioxide 29 (21-32) mEq/L Anion Gap 14.2 (5-15) BUN 10 (7-18) mg/dL Creatinine 0.7 (0.55-1.02) mg/dL Est Cr Clr Drug Dosing TNP Estimated GFR (MDRD) > 60 (>60) mL/min BUN/Creatinine Ratio 14.3 (14-18) Glucose 129 H (74-106) mg/dL Calcium 9.4 (8.5-10.1) mg/dL Magnesium 2.1 (1.8-2.4) mg/dl Total Bilirubin 0.5 (0.2-1.0) mg/dL AST 33 (15-37) U/L ALT 39 (14-59) U/L Alkaline Phosphatase 150 H (46-116) U/L Troponin I < 0.017 (0.00-0.056) ng/mL Total Protein 8.8 H (6.4-8.2) g/dl Albumin 3.6 (3.4-5.0) g/dl Globulin 5.2 gm/dL Albumin/Globulin Ratio 0.7 L (1-2) TSH 3rd Generation 1.971 (0.358-3.74) uIU/mL Urine Color (Yellow) Urine Appearance (Clear) Urine pH (5.0-8.0) Ur Specific [place] (1.005-1.030) Urine Protein (Negative) Urine Glucose (UA) (Negative) Urine Ketones (Negative) Urine Occult Blood (Negative) Urine Nitrite (Negative) Urine Bilirubin (Negative) Urine Urobilinogen (0.2-1.0) Ur Leukocyte Esterase (Negative) Urine RBC (0-5) /hpf Urine WBC (0-5) /hpf Ur Squamous Epith Cells (0-5) /hpf Urine Bacteria (FEW) /hpf Urine Mucus (FEW) /hpf Urine HCG, Qual (NEGATIVE) Urine Opiates Screen (CMXWUD=556) Ur Buprenorphine Scrn (CUTOFF=10) Ur Oxycodone Screen (EVB2NB=441) Urine Methadone Screen (FXKTXY=274) Ur Propoxyphene Screen (YJGSFX=702) Ur Barbiturates Screen (QPYXXJ=421) Ur Tricyclics Screen (YBMBZH=961) Ur Phencyclidine Scrn (CUTOFF=25) Ur Amphetamine Screen (GQPGDF=528) U Methamphetamines Scrn (GNGZMX=789) U Benzodiazepines Scrn (AQAIVA=107) U Cocaine Metab Screen (TBDBBJ=899) U Marijuana (THC) Screen (CUTOFF=50) 01/09/20 01/09/20 01/09/20 Range/Units 07:30 08:10 08:10 WBC (3.98-10.04) K/mm3 RBC (3.98-5.22) M/mm3 Hgb (11.2-15.7) gm/dl Hct (34.1-44.9) % MCV (79.4-94.8) fl MCH (25.6-32.2) pg MCHC (32.2-35.5) g/dl RDW Std Deviation (36.4-46.3) fL Plt Count (182-369) K/mm3 MPV (9.4-12.3) fl Neutrophils % (Manual) (40-60) % Band Neutrophils % (0-10) % Lymphocytes % (Manual) (20-40) % Atypical Lymphs % % Monocytes % (Manual) (2-10) % Eosinophils % (Manual) (0.7-5.8) % Basophils % (Manual) (0.1-1.2) Platelet Estimate Hypochromasia Poikilocytosis Anisocytosis RBC Morph Comment PT (9.7-12.0) SECONDS INR APTT 47 H (22-31) SECONDS Sodium (136-145) mEq/L Potassium (3.5-5.1) mEq/L Chloride (98-107) mEq/L Carbon Dioxide (21-32) mEq/L Anion Gap (5-15) BUN (7-18) mg/dL Creatinine (0.55-1.02) mg/dL Est Cr Clr Drug Dosing Estimated GFR (MDRD) (>60) mL/min BUN/Creatinine Ratio (14-18) Glucose (74-106) mg/dL Calcium (8.5-10.1) mg/dL Magnesium (1.8-2.4) mg/dl Total Bilirubin (0.2-1.0) mg/dL AST (15-37) U/L ALT (14-59) U/L Alkaline Phosphatase (46-116) U/L Troponin I (0.00-0.056) ng/mL Total Protein (6.4-8.2) g/dl Albumin (3.4-5.0) g/dl Globulin gm/dL Albumin/Globulin Ratio (1-2) TSH 3rd Generation (0.358-3.74) uIU/mL Urine Color (Yellow) Urine Appearance (Clear) Urine pH (5.0-8.0) Ur Specific [place] (1.005-1.030) Urine Protein (Negative) Urine Glucose (UA) (Negative) Urine Ketones (Negative) Urine Occult Blood (Negative) Urine Nitrite (Negative) Urine Bilirubin (Negative) Urine Urobilinogen (0.2-1.0) Ur Leukocyte Esterase (Negative) Urine RBC (0-5) /hpf Urine WBC (0-5) /hpf Ur Squamous Epith Cells (0-5) /hpf Urine Bacteria (FEW) /hpf Urine Mucus (FEW) /hpf Urine HCG, Qual Negative (NEGATIVE) Urine Opiates Screen Negative (UKDTBV=760) Ur Buprenorphine Scrn Negative (CUTOFF=10) Ur Oxycodone Screen Negative (XLB3HG=696) Urine Methadone Screen Negative (DEYLBM=725) Ur Propoxyphene Screen Negative (OTJBXR=265) Ur Barbiturates Screen Negative (ZDPZVH=703) Ur Tricyclics Screen Negative (SBCBGD=833) Ur Phencyclidine Scrn Negative (CUTOFF=25) Ur Amphetamine Screen Negative (LBLKEB=506) U Methamphetamines Scrn Negative (KDQDVU=977) U Benzodiazepines Scrn Negative (JUFLEZ=484) U Cocaine Metab Screen Negative (VADAPU=545) U Marijuana (THC) Screen Negative (CUTOFF=50) 01/09/20 Range/Units 08:10 WBC (3.98-10.04) K/mm3 RBC (3.98-5.22) M/mm3 Hgb (11.2-15.7) gm/dl Hct (34.1-44.9) % MCV (79.4-94.8) fl MCH (25.6-32.2) pg MCHC (32.2-35.5) g/dl RDW Std Deviation (36.4-46.3) fL Plt Count (182-369) K/mm3 MPV (9.4-12.3) fl Neutrophils % (Manual) (40-60) % Band Neutrophils % (0-10) % Lymphocytes % (Manual) (20-40) % Atypical Lymphs % % Monocytes % (Manual) (2-10) % Eosinophils % (Manual) (0.7-5.8) % Basophils % (Manual) (0.1-1.2) Platelet Estimate Hypochromasia Poikilocytosis Anisocytosis RBC Morph Comment PT (9.7-12.0) SECONDS INR APTT (22-31) SECONDS Sodium (136-145) mEq/L Potassium (3.5-5.1) mEq/L Chloride (98-107) mEq/L Carbon Dioxide (21-32) mEq/L Anion Gap (5-15) BUN (7-18) mg/dL Creatinine (0.55-1.02) mg/dL Est Cr Clr Drug Dosing Estimated GFR (MDRD) (>60) mL/min BUN/Creatinine Ratio (14-18) Glucose (74-106) mg/dL Calcium (8.5-10.1) mg/dL Magnesium (1.8-2.4) mg/dl Total Bilirubin (0.2-1.0) mg/dL AST (15-37) U/L ALT (14-59) U/L Alkaline Phosphatase (46-116) U/L Troponin I (0.00-0.056) ng/mL Total Protein (6.4-8.2) g/dl Albumin (3.4-5.0) g/dl Globulin gm/dL Albumin/Globulin Ratio (1-2) TSH 3rd Generation (0.358-3.74) uIU/mL Urine Color Dark yellow (Yellow) Urine Appearance Clear (Clear) Urine pH 6.5 (5.0-8.0) Ur Specific [place] > or = 1.030 (1.005-1.030) Urine Protein 3+ H (Negative) Urine Glucose (UA) Negative (Negative) Urine Ketones Negative (Negative) Urine Occult Blood Negative (Negative) Urine Nitrite Negative (Negative) Urine Bilirubin Negative (Negative) Urine Urobilinogen 1.0 (0.2-1.0) Ur Leukocyte Esterase Negative (Negative) Urine RBC Not seen (0-5) /hpf Urine WBC 0-5 (0-5) /hpf Ur Squamous Epith Cells 10-20 H (0-5) /hpf Urine Bacteria Not seen (FEW) /hpf Urine Mucus Not seen (FEW) /hpf Urine HCG, Qual (NEGATIVE) Urine Opiates Screen (LFGBZR=203) Ur Buprenorphine Scrn (CUTOFF=10) Ur Oxycodone Screen (LOH2II=954) Urine Methadone Screen (WXCRCV=349) Ur Propoxyphene Screen (OASPSZ=750) Ur Barbiturates Screen (UCVOYF=864) Ur Tricyclics Screen (IQAYNL=433) Ur Phencyclidine Scrn (CUTOFF=25) Ur Amphetamine Screen (RBQYCL=026) U Methamphetamines Scrn (HMVALI=696) U Benzodiazepines Scrn (DHDMVV=586) U Cocaine Metab Screen (QPUKXC=901) U Marijuana (THC) Screen (CUTOFF=50) - Re-Assessments/Exams Free Text/Narrative Re-Assessment/Exam: 01/09/20 10:07 The patient has been evaluated fully for her complaint of palpitations. She maintains a sinus tachycardia in the low 100s and tolerates it well and is asymptomatic. It may be a function of her obesity. In any event troponin is negative thyroid is normal. There is a slightly increased white count and a mild left shift but no evidence of infectious process at this point. Chest x- ray read as negative. Urine is clean. History of pulmonary emboli on warfarin INR 2.5. No acute changes on EKG. Tried to reach the patient's usual communications editor in [place] and had to talk instead with the cardiology site acquisition manager Dr. Benedict. Case presented in detail and questions answered. It is safe to go home. She needs to have a Holter monitor placed and an echocardiogram CHARY. Patient strongly cautioned regarding immediate return to ER for any troubling symptoms. She is to see her primary Susan Yi PA-C, at 915 tomorrow morning. Discussed fully with Susan Yi. Holter monitor will be placed tomorrow morning and in all likelihood the echocardiogram can be done tomorrow also. Departure - Departure Time of Disposition: 10:12 Disposition: Home, Self-Care 01 Condition: Good Clinical Impression: Palpitations, Sinus tachycardia by electrocardiogram, Chronic anticoagulation, History of pulmonary embolism, Morbid obesity with BMI of 40.0-44.9, adult Referrals: Susan Yi PA-C [Primary Care Provider] - Forms: ED Department Discharge Additional Instructions: You have been seen for palpitations and a mild tachycardia. This was taken up with Dr. Benedict site acquisition manager communications editor at [place]. After reviewing all the data and your physical exam and history it is determined that it is okay to go home as long as you can arrange for a monitoring tech and echocardiogram CHARY. Discussed with Susan Yi PA-C. She is sure primary. You are to see her 915 tomorrow morning and the monitor will be placed and hopefully the echocardiogram can also be done tomorrow. If you have any paulo chest pain, especially associated with shortness of breath tachycardia fainting sweating or inability to mobilize call 911 and return to ER immediately. Sepsis Event Note - Evaluation Sepsis Screening Result: No Definite Risk - Focused Exam Vital Signs: Vital Signs Temp Pulse Resp BP Pulse Ox 01/09/20 07:30 36.9 C 111 H 24 H 149/93 H 95 Date Exam was Performed: 01/09/20 Time Exam was Performed: 10:07 - My Orders Last 24 Hours: My Active Orders 01/09/20 07:39 EKG Documentation Completion [RC] STAT - Assessment/Plan Last 24 Hours: My Active Orders 01/09/20 07:39 EKG Documentation Completion [RC] STAT
--- NOTE | 2020-01-09 08:44 | CR ---
Chest: Portable view of the chest was obtained. Comparison: Prior chest x-ray of 02/15/19 and 11/25/18. Heart size is slightly generous but accentuated from portable technique. Upper mediastinum is normal. Lungs are clear with no acute parenchymal change. Bony structures are grossly intact. Impression: 1. Nothing acute is appreciated on portable chest x-ray. Diagnostic code #1 This report was dictated in MDT
[2020-01-09 10:27] VITALS: BP 156/88; PULSE 86
== END 2020-01-09 10:27 | disposition home or self-care (01) ==
LOC: JD.ED 07:21
DX: R00.0 Tachycardia, unspecified (principal); R00.2 Palpitations; I10 Essential (primary) hypertension; E78.00 Pure hypercholesterolemia, unspecified; E66.01 Morbid (severe) obesity due to excess calories; Z91.041 Radiographic dye allergy status; Z79.899 Other long term (current) drug therapy; Z79.01 Long term (current) use of anticoagulants; Z68.41 Body mass index [BMI] 40.0-44.9, adult; Z86.711 Personal history of pulmonary embolism
CPT/HCPCS: 36415; 71045; 71045-26; 80053; 80306; 81001; 81025; 83735; 84443; 84484; 85007; 85027; 85610; 85730; 93005; 99285-25

== ENCOUNTER 2020-05-31 18:11 | Emergency (ER) | payer MEDICAID ==
[2020-05-31 18:25] VITALS: BP 160/87; PULSE 102
--- NOTE | 2020-05-31 18:30 | EDM.PDOC ---
ED HPI GENERAL MEDICAL PROBLEM - General Chief Complaint: Lower Extremity Injury/Pain Stated Complaint: MAY HAV SPRAINED LEFT ANKEL Time Seen by Provider: 05/31/20 18:25 Source of Information: Reports: Patient History Limitations: Reports: No Limitations - History of Present Illness INITIAL COMMENTS - FREE TEXT/NARRATIVE: 49-year-old female presents to the ED for evaluation of acute injury to her left ankle. She states that a few hours ago she got up to walk after being seated for a lengthy period of time and her left foot was a sleep. She inadvertently inverted the ankle and it caused her to fall to the floor. She is a rather large lady. Since that time she is been unable to weight-bear without severe pain particular in the lateral aspect of the ankle. No previous surgery to the left ankle. She has sprained it in the past. Denies any injuries from falling today. Note the patient is on Coumadin daily for previous pulmonary embolism. Onset: Today, Sudden Onset Date: 05/31/20 Onset Time: 16:30 Duration: Hour(s):, Getting Worse Location: Reports: Lower Extremity, Left (Left ankle particularly the lateral aspect of the ankle but she has pain medial aspect as well.) Quality: Reports: Ache, Throbbing Severity: Moderate Improves with: Reports: Rest Worsens with: Reports: Movement (And attempt to weight-bear) Context: Reports: Trauma (Inversion injury left ankle.). 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 (see below) (.) Left Ankle Pain Score (Numeric/FACES): 10 - Related Data Allergies Allergy/AdvReac Type Severity Reaction Status Date / Time IV Contrast Dye Allergy Hives Uncoded 05/31/20 18:25 Home Meds: Home Meds Lisinopril 30 mg PO DAILY 11/25/18 [History] Furosemide 40 mg PO BID 02/15/19 [History] Multivitamin 1 tab PO DAILY 01/09/20 [History] Potassium Chloride [Klor-Con M20] 20 meq PO TID 01/09/20 [History] Rosuvastatin [Crestor] 20 mg PO DAILY 01/09/20 [History] Warfarin Sodium [Jantoven] 5 mg PO MO 01/09/20 [History] Warfarin Sodium [Jantoven] 10 mg PO SUTUWETHFRSA 01/09/20 [History] amLODIPine Besylate [Norvasc] 5 mg PO DAILY 01/09/20 [History] oxyCODONE HCl/Acetaminophen [Percocet 5-325 mg Tablet] 1 - 2 each PO Q4H PRN #12 tablet 05/31/20 [Rx] Past Medical History - Past Health History Medical/Surgical History: Denies Medical/Surgical History HEENT History: Reports: None Cardiovascular History: Reports: Hypertension Other Cardiovascular History: pt states she had a murmur as a baby which resolved. 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 She states she scratches at night - Infectious Disease History Infectious Disease History: Reports: None - Past Surgical History Head Surgeries/Procedures: Reports: None Other Cardiovascular Surgeries/Procedures: Pt had DVT that turned into PE. Other Respiratory Surgeries/Procedures: Pt thinks she had a stent placed into the lungs for the blood clot. GI Surgical History: Reports: Appendectomy Other GI Surgeries/Procedures: resection Social & Family History - Family History Family Medical History: Noncontributory - Caffeine Use Caffeine Use: Reports: Coffee, Soda - Living Situation & Occupation Living situation: Reports: Single Occupation: Unemployed Review of Systems - Review of Systems Review Of Systems: See Below Constitutional: Denies: Chills, Diaphoresis, Fever, Weakness, Other Eyes: Reports: No Symptoms Ears: Reports: No Symptoms Nose: Reports: No Symptoms Mouth/Throat: Reports: No Symptoms Respiratory: Reports: Shortness of Breath. Denies: Wheezing, Pleuritic Chest Pain, Cough, Sputum, Hemoptysis Cardiovascular: Reports: Edema. Denies: Chest Pain, Irregular Heart Rate, Lightheadedness, Palpitations GI/Abdominal: Reports: No Symptoms Genitourinary: Reports: Other (Urinary frequency) Musculoskeletal: Reports: Back Pain, Joint Pain (He is hips neck and shoulders at times.) Skin: Reports: Bruising Neurological: Reports: No Symptoms (Bruises easily as she is on Coumadin daily.) Psychiatric: Reports: No Symptoms ED EXAM, GENERAL - Physical Exam Exam: See Below Exam Limited By: No Limitations General Appearance: Alert, WD/WN, No Apparent Distress, Other (Temperature is 36.6 heart rate 102 and sinus at the bedside respiratory is 22 with sats of 95% room air BP 160/87) Eye Exam: Bilateral Eye: Normal Inspection, PERRL Peripheral Pulses: 2+: Posterior Tibial (L), Posterior Tibial (R), Dorsalis Pedis (L), Dorsalis Pedis (R) Extremities: Other (Examination of her left lower extremity shows evidence of some arthritic change in the knee. She has at exacerbated Q angle at the knee. She reports the knee has been sore as of late and believes to be inflamed from pseudogout. Examination of the left ankle shows marked swelling over the lateral aspect of the ankle. Any movement i.e. inversion causes pain. No pain on firm compression over the proximal fibular head. Minimal pain in the ankle on firm compression of midshaft tib-fib left side. The right side shows no sign of injuries.) Neurological: Alert, Oriented, CN II-XII Intact, Normal Cognition Psychiatric: Normal Affect, Normal Mood Skin Exam: Warm, Dry, Intact, Normal Color, No Rash Course - Vital Signs Last Recorded V/S: Last Vital Signs Temp 36.6 C 05/31/20 18:18 Pulse 102 H 05/31/20 18:18 Resp 22 H 05/31/20 18:18 BP 160/87 H 05/31/20 18:18 Pulse Ox 95 05/31/20 18:18 - Orders/Labs/Meds Orders: Active Orders 24 hr Category Date Time Status Ankle Min 3V Lt [CR] Stat Exams 05/31/20 18:25 Taken Acetaminophen/oxyCODONE [Percocet 325-5 MG] Med 05/31/20 19:06 Once 2 tab PO ONETIME ONE - Radiology Interpretation Free Text/Narrative:: 49-year-old female presents to the ED with an acute inversion injury to her left ankle. She got up from the seated position and her foot was asleep and she inadvertently inverted her ankle causing her to fall to the floor. This occurred about 2 hours before arrival in the ED. Examination reveals pain localized to the lateral aspect of the ankle. No pain on firm compression of the foot bones or the proximal fibula or tib-fib. Plan three-view x-rays of the ankle to be obtained. - Re-Assessments/Exams Free Text/Narrative Re-Assessment/Exam: 05/31/20 19:06 3 view x-ray of the left ankle is negative for any fractures of the distal fibula or talus. Patient was placed in a Zuhair wrap for comfort. She prefers not to try to use crutches as she feels this would make her more prone to falling. She will weight-bear on her heel. Given 2 Percocet 5 325 mg tablets from the ED for pain relief overnight and a prescription for a few tablets tomorrow. Departure - Departure Time of Disposition: 19:07 Disposition: Home, Self-Care 01 Condition: Fair Clinical Impression: Sprain of left ankle Qualifiers: Encounter type: initial encounter Involved ligament of ankle: calcaneofibular ligament Qualified Code(s): S93.412A - Sprain of calcaneofibular ligament of left ankle, initial encounter - Discharge Information *PRESCRIPTION DRUG MONITORING PROGRAM REVIEWED*: Not Applicable *COPY OF PRESCRIPTION DRUG MONITORING REPORT IN PATIENT BRUNILDA: Not Applicable Prescriptions: oxyCODONE HCl/Acetaminophen [Percocet 5-325 mg Tablet] 1 - 2 each PO Q4H PRN #12 tablet PRN Reason: pain relief. Instructions: Ankle Sprain With Phase I Rehab-SportsMed, Elastic Bandage and RICE Therapy Referrals: Susan Yi PA-C [Primary Care Provider] - Forms: ED Department Discharge Additional Instructions: Evaluation in the emergency room tonight in regards to acute inversion injury to your left ankle. This occurred when you got up in the ankle was asleep and you inadvertently inverted the ankle causing her to fall to the floor. Three-view x-rays of the left ankle were carried out and no fractures or broken bones were identified. Stressing the ligaments after x-rays were done showed no significant tear of the ligaments. Expect pain in the left ankle for the next 4 to 5 days until swelling and inflammation settles down. You cannot take anti- inflammatories because you are on Coumadin. Suggest use of Percocet tablets 5 325 mg 1 or 2 every 4-6 hours necessary for pain relief for the next 2 to 3 days. Elevate and ice the ankle 1/2-hour out of every 4 hours. Zuhair wrap on during the day and off at night for about 10 days. Sepsis Event Note (ED) - Evaluation Sepsis Screening Result: No Definite Risk - Focused Exam Vital Signs: Vital Signs Temp Pulse Resp BP Pulse Ox 05/31/20 18:18 36.6 C 102 H 22 H 160/87 H 95 - My Orders Last 24 Hours: My Active Orders 05/31/20 18:25 Ankle Min 3V Lt [CR] Stat 05/31/20 19:06 Acetaminophen/oxyCODONE [Percocet 325-5 MG] 2 tab PO ONETIME ONE - Assessment/Plan Last 24 Hours: My Active Orders 05/31/20 18:25 Ankle Min 3V Lt [CR] Stat 05/31/20 19:06 Acetaminophen/oxyCODONE [Percocet 325-5 MG] 2 tab PO ONETIME ONE
[2020-05-31] MEDS ORDERED: Acetaminophen/oxyCODONE 325-5 MG Tab PO ONE (19:06)
--- NOTE | 2020-06-01 10:24 | CR ---
Left ankle: 4 views left ankle were obtained. Comparison: No prior ankle study. Plantar spur is noted. Spur also is noted at the attachment of the Achilles tendon to the calcaneus. Soft tissue swelling appears to be present. Ankle mortise is symmetric. No discrete fracture or other bony abnormality is appreciated. Impression: 1. Calcaneal spurs and soft tissue swelling. 2. No definite acute bony abnormality is appreciated. Diagnostic code #2 Study was dictated in MDT
== END 2020-05-31 19:24 | disposition home or self-care (01) ==
LOC: JD.ED 18:11
DX: S93.412A Sprain of calcaneofibular ligament of left ankle, initial encounter (principal); I10 Essential (primary) hypertension; E66.9 Obesity, unspecified; Z68.42 Body mass index [BMI] 45.0-49.9, adult; Z86.711 Personal history of pulmonary embolism; Z79.01 Long term (current) use of anticoagulants; Z79.899 Other long term (current) drug therapy; W18.30XA Fall on same level, unspecified, initial encounter
CPT/HCPCS: 73610; 99283; A9270

== ENCOUNTER 2020-07-01 13:36 | Emergency (ER) | payer MEDICAID ==
[2020-07-01 14:02] VITALS: BP 160/86; PULSE 104
--- NOTE | 2020-07-01 14:30 | EDM.PDOC ---
ED HPI GENERAL MEDICAL PROBLEM - General Chief Complaint: Lower Extremity Injury/Pain Stated Complaint: LT KNEE PAIN Time Seen by Provider: 07/01/20 13:45 Source of Information: Reports: Patient History Limitations: Reports: No Limitations - History of Present Illness INITIAL COMMENTS - FREE TEXT/NARRATIVE: Patient is a 49 year female presenting with c/o left knee pain. Symptoms began a few weeks ago. She was seen by her PCP. She ordered her to receive physical therapy and prescribed Tramadol. She has not yet started PT but states that she does plan on it. She states that her PCP will not give her any more pain medications until she does PT. She is concerned that she could have a DVT in the leg as she has had them in the past. She is, however, on Coumadin. She d enies a known injury to the knee. She will have her PT/INR checked tomorrow and a dose adjustment as needed. Left Knee Pain Score (Numeric/FACES): 10 - Related Data Allergies Allergy/AdvReac Type Severity Reaction Status Date / Time IV Contrast Dye Allergy Severe Hives Uncoded 07/01/20 13:55 Home Meds: Home Meds Lisinopril 30 mg PO DAILY 11/25/18 [History] Furosemide 40 mg PO BID 02/15/19 [History] Multivitamin 1 tab PO DAILY 01/09/20 [History] Potassium Chloride [Klor-Con M20] 20 meq PO TID 01/09/20 [History] Rosuvastatin [Crestor] 20 mg PO DAILY 01/09/20 [History] amLODIPine Besylate [Norvasc] 5 mg PO DAILY 01/09/20 [History] Warfarin Sodium [Jantoven] 5 mg PO MO 07/01/20 [History] Warfarin Sodium [Jantoven] 19 mg PO SUTUWETHFRSA 07/01/20 [History] Past Medical History - Past Health History Medical/Surgical History: Denies Medical/Surgical History HEENT History: Reports: None Cardiovascular History: Reports: Hypertension Other Cardiovascular History: pt states she had a murmur as a baby which resolved. 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 She states she scratches at night - Infectious Disease History Infectious Disease History: Reports: None - Past Surgical History Head Surgeries/Procedures: Reports: None Other Cardiovascular Surgeries/Procedures: Pt had DVT that turned into PE. Other Respiratory Surgeries/Procedures: Pt thinks she had a stent placed into the lungs for the blood clot. GI Surgical History: Reports: Appendectomy Other GI Surgeries/Procedures: resection Social & Family History - Family History Family Medical History: Noncontributory - Tobacco Use Tobacco Use Status *Q: Never Tobacco User - Caffeine Use Caffeine Use: Reports: Soda - Recreational Drug Use Recreational Drug Use: No - Living Situation & Occupation Living situation: Reports: Single Occupation: Unemployed Review of Systems - Review of Systems Review Of Systems: See Below Constitutional: Reports: No Symptoms. Denies: Chills, Fever Eyes: Reports: No Symptoms Ears: Reports: No Symptoms Nose: Reports: No Symptoms Mouth/Throat: Reports: No Symptoms Respiratory: Reports: No Symptoms Cardiovascular: Reports: No Symptoms GI/Abdominal: Reports: No Symptoms Genitourinary: Reports: No Symptoms Musculoskeletal: Reports: Other (left knee pain) Skin: Reports: No Symptoms Neurological: Reports: No Symptoms Psychiatric: Reports: No Symptoms ED EXAM, GENERAL - Physical Exam Exam: See Below General Appearance: Alert, WD/WN, No Apparent Distress Respiratory/Chest: No Respiratory Distress, Lungs Clear, Normal Breath Sounds, No Accessory Muscle Use, Chest Non-Tender Cardiovascular: Normal Peripheral Pulses, Regular Rate, Rhythm, No Edema, No Gallop, No JVD, No Murmur, No Rub GI/Abdominal: Normal Bowel Sounds, Soft, Non-Tender, No Organomegaly, No Distention, No Abnormal Bruit, No Mass Extremities: Other (tenderness to palpation of the left lateral knee. No obvious edema or errythema.) Neurological: Alert, Oriented, CN II-XII Intact, Normal Cognition, Normal Gait, Normal Reflexes, No Motor/Sensory Deficits Psychiatric: Normal Affect, Normal Mood Skin Exam: Warm, Dry, Intact, Normal Color, No Rash Course - Vital Signs Last Recorded V/S: Last Vital Signs Temp 98.5 F 07/01/20 14:01 Pulse 104 H 07/01/20 14:01 Resp 20 07/01/20 14:01 BP 160/86 H 07/01/20 14:01 Pulse Ox 95 07/01/20 14:01 - Orders/Labs/Meds Orders: Active Orders 24 hr Category Date Time Status Knee 3V Lt [CR] Stat Exams 07/01/20 14:08 Taken VL Duplex Lwr Ext Veins Ltd Lt [US] Stat Exams 07/01/20 14:08 Taken Acetaminophen/HYDROcodone [[place] 325-5 MG] Med 07/01/20 15:31 Once 2 tab PO ONETIME ONE DME for Discharge [COMM] Routine Oth 07/01/20 15:31 Ordered - Re-Assessments/Exams Free Text/Narrative Re-Assessment/Exam: Patient is a 41-year-old female presenting to the ER with complaints of left knee pain over the course the last few weeks, worsening over the last few days. She has seen her primary care provider and was referred to PT a little over 20 days ago, however she has not made an appointment for PT thus far. She is concerned that she could have a DVT in this leg. Explained to her that it is highly unlikely that she developed a DVT while on Coumadin, however We will complete an ultrasound of her leg to assure her that there is no DVT. Also complete an x-ray of her knee. She has been in contact with her primary care provider who has told her that she will not prescribe any additional pain medications for her knee until she is seen by PT. Discussed with her that I am not willing to go against her primary care provider's wishes and prescribe additional pain medications if she has not followed through with her PT. 07/01/20 15:32 X-ray of the left knee showed some minimal edema but no acute findings. The ultrasound of the left lower extremity was negative for DVT. Discussed these findings with the patient. She continues to complain of pain. I will give her 2 [place] in the emergency department, however I explained that I am not willing to write a prescription for additional pain medications. She still has 10 tablets of tramadol left she should continue to use those. We will send her home with a walker to help with ambulation. Discussed it is essential that she follow her primary care providers instruction and attend physical therapy. She should follow-up with her primary care provider as needed. Discharge instructions as documented. Departure - Departure Time of Disposition: 15:34 Disposition: Home, Self-Care 01 Condition: Good Clinical Impression: Knee pain Qualifiers: Chronicity: chronic Laterality: left Qualified Code(s): M25.562 - Pain in left knee; G89.29 - Other chronic pain - Discharge Information *PRESCRIPTION DRUG MONITORING PROGRAM REVIEWED*: Yes *COPY OF PRESCRIPTION DRUG MONITORING REPORT IN PATIENT BRUNILDA: No Instructions: Chronic Knee Pain, Adult Referrals: Susan Yi PA-C [Primary Care Provider] - Forms: ED Department Discharge Additional Instructions: You were seen in the emergency department today for evaluation in regards to your left knee pain. In the ER, an ultrasound of your left lower extremity and an x-ray of your knee were completed. Both were found to be normal. There is no evidence of DVT or any acute abnormalities on x-ray. As we discussed, we will not go against the treatment plan as put in place by your primary care provider. Recommend that you take Tylenol routinely, but do not exceed 4000 mg of Tylenol in 1 given day. You may continue to use the tramadol as previously prescribed for pain not relieved by Tylenol. Schedule an appointment with physical therapy at the next available session. Follow-up with your primary care provider after you have attended physical therapy for ongoing management. You have been provided with a walker to help reduce the amount of weight that you put on the knee which should help with the pain. Return to the ER as needed. Sepsis Event Note (ED) - Evaluation Sepsis Screening Result: No Definite Risk - Focused Exam Vital Signs: Vital Signs Temp Pulse Resp BP Pulse Ox 07/01/20 14:01 98.5 F 104 H 20 160/86 H 95 - My Orders Last 24 Hours: My Active Orders 07/01/20 14:08 Knee 3V Lt [CR] Stat VL Duplex Lwr Ext Veins Ltd Lt [US] Stat 07/01/20 15:31 Acetaminophen/HYDROcodone [[place] 325-5 MG] 2 tab PO ONETIME ONE DME for Discharge [COMM] Routine - Assessment/Plan Last 24 Hours: My Active Orders 07/01/20 14:08 Knee 3V Lt [CR] Stat VL Duplex Lwr Ext Veins Ltd Lt [US] Stat 07/01/20 15:31 Acetaminophen/HYDROcodone [[place] 325-5 MG] 2 tab PO ONETIME ONE DME for Discharge [COMM] Routine
[2020-07-01] MEDS ORDERED: Acetaminophen/HYDROcodone 325-5 MG Tab PO ONE (15:31)
== END 2020-07-01 15:50 | disposition home or self-care (01) ==
LOC: JD.ED 13:36
DX: M25.562 Pain in left knee (principal); G89.29 Other chronic pain; I10 Essential (primary) hypertension; Z86.711 Personal history of pulmonary embolism; E66.9 Obesity, unspecified; Z86.718 Personal history of other venous thrombosis and embolism; Z91.041 Radiographic dye allergy status; Z79.899 Other long term (current) drug therapy; Z79.01 Long term (current) use of anticoagulants
CPT/HCPCS: 73562; 93971; 99284; A9270; 99283

== ENCOUNTER 2020-12-08 08:00 | Inpatient (IN) | payer MEDICAID ==
[2020-12-08] MEDS ORDERED: Sodium Chloride 0.9% 10 ML Syringe FLUSH PRN (08:32)
--- NOTE | 2020-12-08 08:52 | EDM.PDOC ---
ED HPI GENERAL MEDICAL PROBLEM - General Chief Complaint: General Stated Complaint: HEADACHE, SWELLING AND BLOOD IN STOOL Time Seen by Provider: 12/08/20 08:06 Source of Information: Reports: Patient History Limitations: Reports: No Limitations - History of Present Illness INITIAL COMMENTS - FREE TEXT/NARRATIVE: The patient presents with shortness of breath and blood in her stool. She has a history of diastolic congestive heart failure. She stopped taking her lasix about a week ago because her knees were hurting and she did not want to get up many times to use the bathroom. Her oxygen saturations were 73% when she came back. She says she does feel short of breath. She has no chest pain, cough, fever, abdominal pain, nausea or vomiting. She does have some chills at times. She says she has had some blood in her stools at times. It is not with every bowel movement but it comes and goes. She is on coumadin for PEs. She had her INR checked on Tuesday and she said it was 4. She does have swelling of both legs. The patient is morbidly obese at a weight of 204kg. She does have a rash under her right breast that has been there for a few weeks. Onset: Gradual Duration: Day(s): Severity: Moderate Improves with: Reports: None Worsens with: Reports: None Associated Symptoms: Reports: Fever/Chills, Shortness of Breath. Denies: Chest Pain, Cough, Headaches, Nausea/Vomiting Headache Pain Score (Numeric/FACES): 8 - Related Data Allergies Allergy/AdvReac Type Severity Reaction Status Date / Time IV Contrast Dye Allergy Severe Hives Uncoded 12/08/20 08:33 Home Meds: Home Meds Lisinopril 40 mg PO DAILY 11/25/18 [History] Furosemide 40 mg PO BID 02/15/19 [History] Multivitamin 1 tab PO DAILY 01/09/20 [History] Potassium Chloride [Klor-Con M20] 20 meq PO TID 01/09/20 [History] Rosuvastatin [Crestor] 20 mg PO DAILY 01/09/20 [History] Warfarin Sodium [Jantoven] 5 mg PO MOTH 07/01/20 [History] Warfarin Sodium [Jantoven] 10 mg PO [id number] 07/01/20 [History] amLODIPine [Norvasc] 10 mg PO DAILY 12/08/20 [History] Past Medical History - Past Health History Medical/Surgical History: Denies Medical/Surgical History HEENT History: Reports: None Cardiovascular History: Reports: Hypertension Other Cardiovascular History: pt states she had a murmur as a baby which resolved. 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 She states she scratches at night - Infectious Disease History Infectious Disease History: Reports: None - Past Surgical History Head Surgeries/Procedures: Reports: None Other Cardiovascular Surgeries/Procedures: Pt had DVT that turned into PE. Other Respiratory Surgeries/Procedures: Pt thinks she had a stent placed into the lungs for the blood clot. GI Surgical History: Reports: Appendectomy Other GI Surgeries/Procedures: resection Social & Family History - Family History Family Medical History: No Pertinent Family History - Caffeine Use Caffeine Use: Reports: Soda - Living Situation & Occupation Living situation: Reports: Single Occupation: Unemployed ED ROS GENERAL - Review of Systems Review Of Systems: See Below Constitutional: Reports: Chills. Denies: Fever HEENT: Reports: No Symptoms Respiratory: Reports: Shortness of Breath. Denies: Cough Cardiovascular: Reports: Edema. Denies: Chest Pain Endocrine: Reports: No Symptoms GI/Abdominal: Reports: Bloody Stool. Denies: Abdominal Pain, Nausea, Vomiting : Reports: No Symptoms Musculoskeletal: Reports: No Symptoms Skin: Reports: Rash (under her right breast) ED EXAM, GENERAL - Physical Exam Exam: See Below Exam Limited By: No Limitations General Appearance: Alert, No Apparent Distress Ears: Normal External Exam Nose: Normal Inspection Head: Atraumatic, Normocephalic Neck: Normal Inspection Respiratory/Chest: No Respiratory Distress, Decreased Breath Sounds Cardiovascular: Regular Rate, Rhythm, No Edema, No Murmur GI/Abdominal: Soft, Non-Tender, No Organomegaly, No Mass Rectal (Female) Exam: Heme + Stool Extremities: Pedal Edema Neurological: Alert, Oriented, No Motor/Sensory Deficits Skin Exam: Other (Erythema and some skin break down under both breasts) #1 Interpretation EKG Date: 12/08/20 Time: 08:52 Rhythm: Other (sinus tachycardia) Rate (Beats/Min): 113 [place]: Normal P-Wave: Present QRS: Normal ST-T: Normal QT: Normal EKG Interpretation Comments: Q waves in the anterior leads Course - Vital Signs Last Recorded V/S: Last Vital Signs Temp 98.3 F 12/08/20 08:28 Pulse 105 H 12/08/20 08:28 Resp 24 H 12/08/20 08:28 BP 161/73 H 12/08/20 08:28 Pulse Ox 73 L 12/08/20 08:28 - Orders/Labs/Meds Orders: Active Orders 24 hr Category Date Time Status Patient Status [ADT] Routine ADT 12/08/20 11:03 Ordered Cardiac Monitoring [RC] . DIRECTED Care 12/08/20 08:32 Active EKG Documentation Completion [RC] STAT Care 12/08/20 08:32 Active Oxygen Therapy [RC] PRN Care 12/08/20 08:32 Active Peripheral IV Care [RC] . DIRECTED Care 12/08/20 08:33 Active Sodium Chloride 0.9% [Saline Flush] Med 12/08/20 08:32 Active 10 ml FLUSH ASDIRECTED PRN Peripheral IV Insertion Adult [OM.PC] Stat Oth 12/08/20 08:32 Ordered Medication Orders Sodium Chloride (Sodium Chloride 0.9% 10 Ml Syringe) 10 ml FLUSH ASDIRECTED PRN PRN Reason: Keep Vein Open Last Admin: 12/08/20 08:49 Dose: 10 ml Documented by: DANI Labs: Laboratory Tests 12/08/20 12/08/20 12/08/20 Range/Units 08:40 08:40 08:40 WBC 9.00 (3.98-10.04) K/mm3 RBC 4.97 (3.98-5.22) M/mm3 Hgb 12.5 (11.2-15.7) gm/dl Hct 43.7 (34.1-44.9) % MCV 87.9 D (79.4-94.8) fl MCH 25.2 L (25.6-32.2) pg MCHC 28.6 L (32.2-35.5) g/dl RDW Std Deviation 55.3 H (36.4-46.3) fL Plt Count 280 (182-369) K/mm3 MPV 9.7 (9.4-12.3) fl Neut % (Auto) 81.2 H (34.0-71.1) % Lymph % (Auto) 11.2 L (19.3-51.7) % Robeson % (Auto) 6.0 (4.7-12.5) % Eos % (Auto) 1.1 (0.7-5.8) Baso % (Auto) 0.2 (0.1-1.2) % Neut # (Auto) 7.30 H (1.56-6.13) K/mm3 Lymph # (Auto) 1.01 L (1.18-3.74) K/mm3 Robeson # (Auto) 0.54 H (0.24-0.36) K/mm3 Eos # (Auto) 0.10 (0.04-0.36) K/mm3 Baso # (Auto) 0.02 (0.01-0.08) K/mm3 Manual Slide Review Abnormal smear PT 71.2 H* (9.7-12.0) SECONDS INR 6.91 H* D-Dimer, Quantitative < 0.19 L (0.19-0.50) mg/L Puncture Site ABG pH (7.35-7.45) ABG pCO2 (35.0-45.0) mmHg ABG pO2 (80.0-100.0) mmHg ABG HCO3 (22.0-26.0) meq/L ABG O2 Saturation (96.0-97.0) % ABG Base Excess (-2-2.0) Arnulfo Test A-a Gradient mmHg O2 Delivery Device Oxygen Flow Rate FiO2 (21.00-100.00) % Sodium 146 H (136-145) mEq/L Potassium 4.2 (3.5-5.1) mEq/L Chloride 105 (98-107) mEq/L Carbon Dioxide 33 H (21-32) mEq/L Anion Gap 12.2 (5-15) BUN 8 (7-18) mg/dL Creatinine 0.7 (0.55-1.02) mg/dL Est Cr Clr Drug Dosing 94.54 mL/min Estimated GFR (MDRD) > 60 (>60) mL/min BUN/Creatinine Ratio 11.4 L (14-18) Glucose 121 H (74-106) mg/dL Calcium 9.3 (8.5-10.1) mg/dL Total Bilirubin 0.5 (0.2-1.0) mg/dL AST 27 (15-37) U/L ALT 30 (14-59) U/L Alkaline Phosphatase 109 (46-116) U/L Troponin I < 0.017 (0.00-0.056) ng/mL NT-Pro-B Natriuret Pep (0-125) pg/mL Total Protein 7.4 (6.4-8.2) g/dl Albumin 2.7 L (3.4-5.0) g/dl Globulin 4.7 gm/dL Albumin/Globulin Ratio 0.6 L (1-2) SARS-CoV-2 RNA (CADE) (NEGATIVE) 12/08/20 12/08/20 12/08/20 Range/Units 08:40 08:56 09:30 WBC (3.98-10.04) K/mm3 RBC (3.98-5.22) M/mm3 Hgb (11.2-15.7) gm/dl Hct (34.1-44.9) % MCV (79.4-94.8) fl MCH (25.6-32.2) pg MCHC (32.2-35.5) g/dl RDW Std Deviation (36.4-46.3) fL Plt Count (182-369) K/mm3 MPV (9.4-12.3) fl Neut % (Auto) (34.0-71.1) % Lymph % (Auto) (19.3-51.7) % Robeson % (Auto) (4.7-12.5) % Eos % (Auto) (0.7-5.8) Baso % (Auto) (0.1-1.2) % Neut # (Auto) (1.56-6.13) K/mm3 Lymph # (Auto) (1.18-3.74) K/mm3 Robeson # (Auto) (0.24-0.36) K/mm3 Eos # (Auto) (0.04-0.36) K/mm3 Baso # (Auto) (0.01-0.08) K/mm3 Manual Slide Review PT (9.7-12.0) SECONDS INR D-Dimer, Quantitative (0.19-0.50) mg/L Puncture Site Rt radial ABG pH 7.39 (7.35-7.45) ABG pCO2 50.5 H (35.0-45.0) mmHg ABG pO2 48.0 L (80.0-100.0) mmHg ABG HCO3 29.5 H (22.0-26.0) meq/L ABG O2 Saturation 78.3 L (96.0-97.0) % ABG Base Excess 4.1 H (-2-2.0) Arnulfo Test Positive A-a Gradient 38 mmHg O2 Delivery Device Room air Oxygen Flow Rate 0.0 FiO2 21.00 (21.00-100.00) % Sodium (136-145) mEq/L Potassium (3.5-5.1) mEq/L Chloride (98-107) mEq/L Carbon Dioxide (21-32) mEq/L Anion Gap (5-15) BUN (7-18) mg/dL Creatinine (0.55-1.02) mg/dL Est Cr Clr Drug Dosing mL/min Estimated GFR (MDRD) (>60) mL/min BUN/Creatinine Ratio (14-18) Glucose (74-106) mg/dL Calcium (8.5-10.1) mg/dL Total Bilirubin (0.2-1.0) mg/dL AST (15-37) U/L ALT (14-59) U/L Alkaline Phosphatase (46-116) U/L Troponin I (0.00-0.056) ng/mL NT-Pro-B Natriuret Pep 240 H (0-125) pg/mL Total Protein (6.4-8.2) g/dl Albumin (3.4-5.0) g/dl Globulin gm/dL Albumin/Globulin Ratio (1-2) SARS-CoV-2 RNA (CADE) Negative (NEGATIVE) Meds: Medications Generic Name Dose Route Start Last Admin Trade Name Freq PRN Reason Stop Dose Admin Sodium Chloride 10 ml 12/08/20 08:32 12/08/20 08:49 Sodium Chloride 0.9% 10 Ml Syringe FLUSH 10 ml ASDIRECTED PRN Administration Keep Vein Open Discontinued Medications Generic Name Dose Route Start Last Admin Trade Name Neena PRN Reason Stop Dose Admin Furosemide 40 mg 12/08/20 10:32 Furosemide 40 Mg/4 Ml Vial IVPUSH 12/08/20 10:33 NOW ONE - Re-Assessments/Exams Free Text/Narrative Re-Assessment/Exam: 12/08/20 08:52 I ordered oxygen, EKG, CXR, IV saline lock and labs. 12/08/20 10:28 Her EKG shows sinus tachycardia with no acute changes. Her CXR shows mild cardiomegaly. Nothing acute is otherwise seen on portable chest x-ray. Her CBC looks good. He INR is elevated at 6.91. Her D-dimer is negative. Her pH is normal at 7.39. Her pCO2 is elevated at 50.5. Her pO2 is low at 48. That was off oxygen. She was put back on the oxygen and her saturations did go up. Her Na was 146. Her glucose was 121. Her troponin was negative. Her BNP was elevated at 240. I feel she is in heart failure. I feel she needs to be admitted. I ordered some lasix. 12/08/20 11:04 She has a CHF exacerbation, GI bleed and supratherapeutic INR. Departure - Departure Time of Disposition: 11:05 Disposition: Admitted As Inpatient 67 Condition: Poor Clinical Impression: Skin rash, Supratherapeutic INR, Hypoxia, Morbid obesity with BMI of 70 and ove r, adult CHF exacerbation Qualifiers: Heart failure type: diastolic Qualified Code(s): I50.33 - Acute on chronic diastolic (congestive) heart failure GI bleed Qualifiers: GI bleed type/associated pathology: melena Qualified Code(s): K92.1 - Melena - Discharge Information Referrals: Susan Yi PA-C [Primary Care Provider] - Forms: ED Department Discharge Sepsis Event Note (ED) - Evaluation Sepsis Screening Result: No Definite Risk - Focused Exam Vital Signs: Vital Signs Temp Pulse Resp BP Pulse Ox 12/08/20 08:28 98.3 F 105 H 24 H 161/73 H 73 L - My Orders Last 24 Hours: My Active Orders 12/08/20 08:32 Cardiac Monitoring [RC] . DIRECTED EKG Documentation Completion [RC] STAT Oxygen Therapy [RC] PRN Sodium Chloride 0.9% [Saline Flush] 10 ml FLUSH ASDIRECTED PRN Peripheral IV Insertion Adult [OM.PC] Stat 12/08/20 08:33 Peripheral IV Care [RC] . DIRECTED 12/08/20 11:03 Patient Status [ADT] Routine - Assessment/Plan Last 24 Hours: My Active Orders 12/08/20 08:32 Cardiac Monitoring [RC] . DIRECTED EKG Documentation Completion [RC] STAT Oxygen Therapy [RC] PRN Sodium Chloride 0.9% [Saline Flush] 10 ml FLUSH ASDIRECTED PRN Peripheral IV Insertion Adult [OM.PC] Stat 12/08/20 08:33 Peripheral IV Care [RC] . DIRECTED 12/08/20 11:03 Patient Status [ADT] Routine
--- NOTE | 2020-12-08 10:07 | CR ---
Chest: Portable view of the chest was obtained. Comparison: Prior chest imaging in 01/09/20 and 05/22/19. Heart is enlarged. Upper mediastinum is within normal limits. Lungs are clear with no acute parenchymal change. No acute osseous finding is appreciated. Impression: 1. Mild cardiomegaly. 2. Nothing acute is otherwise seen on portable chest x-ray. Diagnostic code #2
[2020-12-08] MEDS ORDERED: Furosemide 40 MG/4 ML VIAL IVPUSH ONE (10:32)
[2020-12-08] MEDS ORDERED: Morphine 2 MG/ML SYRINGE IVPUSH PRN (12:08)
[2020-12-08] MEDS ORDERED: Promethazine 12.5 MG in Sodium Chloride 0.9% 50 ML IV PRN (12:08)
[2020-12-08] MEDS ORDERED: Albuterol/Ipratropium 3.0-0.5 MG/3 ML Neb Soln NEB PRN (12:08)
[2020-12-08] MEDS ORDERED: hydrALAZINE 20 MG/ML SDV IVPUSH PRN (12:18)
--- NOTE | 2020-12-08 12:30 | PCM.HP.2 ---
H&P History of Present Illness - General Date of Service: 12/08/20 Admit Problem/Dx: Admission Diagnosis/Problem Admission Diagnosis/Problem CHF, Congestive heart failure Source of Information: Patient, Provider - History of Present Illness Initial Comments - Free Text/Narative: Patient is a 50-year-old female with a history of CHF, hypertension, history of PE on Coumadin and morbid obesity who presented to the ER due to shortness of breath and bloody diarrhea. As per patient, she has been having diarrhea with bright red and black stool for 4 to 5 days. She has bowel movements about 3 times a day associated with nausea. But she denies abdominal pain and has not vomited yet. She has been having shortness of breath over the past 4 days associated with mild dry cough and mild headache. Otherwise she denies chest pain, fever, chills, runny nose, or dysuria. In the ER, she was found to to have low oxygen desaturation. Hemoglobin 12.5,INR 6.91, D-dimer less than 0.19; ABG showed PCO2 50.5 and PO2 48. Chest x-ray showed mild cardiomegaly and BNP 240. Patient admits that she has not taken her Lasix 40 mg twice daily for 1 week due to both knee pain. Headache Pain Score (Numeric/FACES): 8 - Related Data Allergies/Adverse Reactions: Allergies Allergy/AdvReac Type Severity Reaction Status Date / Time IV Contrast Dye Allergy Severe Hives Uncoded 12/08/20 08:33 Home Medications: Home Meds Lisinopril 40 mg PO DAILY 11/25/18 [History] Furosemide 40 mg PO BID 02/15/19 [History] Multivitamin 1 tab PO DAILY 01/09/20 [History] Potassium Chloride [Klor-Con M20] 20 meq PO TID 01/09/20 [History] Rosuvastatin [Crestor] 20 mg PO DAILY 01/09/20 [History] Warfarin Sodium [Jantoven] 5 mg PO MOTH 07/01/20 [History] Warfarin Sodium [Jantoven] 10 mg PO SUTUWEFRSA 07/01/20 [History] amLODIPine [Norvasc] 10 mg PO DAILY 12/08/20 [History] Past Medical History - Past Health History Medical/Surgical History: Denies Medical/Surgical History HEENT History: Reports: None Cardiovascular History: Reports: Hypertension Other Cardiovascular History: pt states she had a murmur as a baby which resolved. 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 She states she scratches at night - Infectious Disease History Infectious Disease History: Reports: None - Past Surgical History Head Surgeries/Procedures: Reports: None Other Cardiovascular Surgeries/Procedures: Pt had DVT that turned into PE. Other Respiratory Surgeries/Procedures: Pt thinks she had a stent placed into the lungs for the blood clot. GI Surgical History: Reports: Appendectomy Other GI Surgeries/Procedures: resection Social & Family History - Family History Family Medical History: No Pertinent Family History (Denies genetic diseases in the family) - Tobacco Use Tobacco Use Status *Q: Never Tobacco User - Caffeine Use Caffeine Use: Reports: Soda - Living Situation & Occupation Living situation: Reports: Single Occupation: Unemployed H&P Review of Systems - Review of Systems: Review Of Systems: See Below General: Reports: No Symptoms HEENT: Reports: No Symptoms Pulmonary: Reports: Shortness of Breath, Cough Gastrointestinal: Reports: No Symptoms Genitourinary: Reports: No Symptoms Musculoskeletal: Reports: Joint Pain (Knee pain) Skin: Reports: Rash Psychiatric: Reports: No Symptoms Neurological: Reports: No Symptoms Hematologic/Lymphatic: Reports: No Symptoms Immunologic: Reports: No Symptoms Exam - Exam Exam: See Below - Vital Signs Vital Signs: Last Vital Signs Temp 36.8 C 12/08/20 08:28 Pulse 105 H 12/08/20 08:28 Resp 24 H 12/08/20 08:28 BP 161/73 H 12/08/20 08:28 Pulse Ox 73 L 12/08/20 08:28 Weight: 204.117 kg - Exam General: Alert, Oriented, Cooperative HEENT: Conjunctiva Clear, EOMI, Pupils Equal, Pupils Reactive Neck: Supple, Trachea Midline, Full Range of Motion Lungs: Clear to Auscultation, Normal Respiratory Effort, Decreased Breath Sounds Cardiovascular: Regular Rate, Regular Rhythm, Normal S1, Normal S2 GI/Abdominal Exam: Normal Bowel Sounds, Soft, Non-Tender, No Organomegaly Extremities: Normal Range of Motion, Non-Tender (Acute and chronic edema) Skin: Warm, Dry, Intact, Rash (under breast) Neurological: Cranial Nerves Intact, Reflexes Equal Bilateral, Strength Equal Bilateral, Normal Speech, Normal Tone, Sensation Intact Neuro Extensive - Mental Status: Alert, Oriented x3, Normal Mood/Affect Neuro Extensive - Motor, Sensory, Reflexes: CN II-XII Intact, Normal Reflexes Psychiatric: Alert, Normal Affect, Normal Mood - Patient Data Lab Results Last 24 hrs: Laboratory Results - last 24 hr 12/08/20 12/08/20 12/08/20 Range/Units 08:40 08:40 08:40 WBC 9.00 (3.98-10.04) K/mm3 RBC 4.97 (3.98-5.22) M/mm3 Hgb 12.5 (11.2-15.7) gm/dl Hct 43.7 (34.1-44.9) % MCV 87.9 D (79.4-94.8) fl MCH 25.2 L (25.6-32.2) pg MCHC 28.6 L (32.2-35.5) g/dl RDW Std Deviation 55.3 H (36.4-46.3) fL Plt Count 280 (182-369) K/mm3 MPV 9.7 (9.4-12.3) fl Neut % (Auto) 81.2 H (34.0-71.1) % Lymph % (Auto) 11.2 L (19.3-51.7) % [place] % (Auto) 6.0 (4.7-12.5) % Eos % (Auto) 1.1 (0.7-5.8) Baso % (Auto) 0.2 (0.1-1.2) % Neut # (Auto) 7.30 H (1.56-6.13) K/mm3 Lymph # (Auto) 1.01 L (1.18-3.74) K/mm3 [place] # (Auto) 0.54 H (0.24-0.36) K/mm3 Eos # (Auto) 0.10 (0.04-0.36) K/mm3 Baso # (Auto) 0.02 (0.01-0.08) K/mm3 Manual Slide Review Abnormal smear PT 71.2 H* (9.7-12.0) SECONDS INR 6.91 H* D-Dimer, Quantitative < 0.19 L (0.19-0.50) mg/L Puncture Site ABG pH (7.35-7.45) ABG pCO2 (35.0-45.0) mmHg ABG pO2 (80.0-100.0) mmHg ABG HCO3 (22.0-26.0) meq/L ABG O2 Saturation (96.0-97.0) % ABG Base Excess (-2-2.0) [place] Test A-a Gradient mmHg O2 Delivery Device Oxygen Flow Rate FiO2 (21.00-100.00) % Sodium 146 H (136-145) mEq/L Potassium 4.2 (3.5-5.1) mEq/L Chloride 105 (98-107) mEq/L Carbon Dioxide 33 H (21-32) mEq/L Anion Gap 12.2 (5-15) BUN 8 (7-18) mg/dL Creatinine 0.7 (0.55-1.02) mg/dL Est Cr Clr Drug Dosing 94.54 mL/min Estimated GFR (MDRD) > 60 (>60) mL/min BUN/Creatinine Ratio 11.4 L (14-18) Glucose 121 H (74-106) mg/dL Calcium 9.3 (8.5-10.1) mg/dL Total Bilirubin 0.5 (0.2-1.0) mg/dL AST 27 (15-37) U/L ALT 30 (14-59) U/L Alkaline Phosphatase 109 (46-116) U/L Troponin I < 0.017 (0.00-0.056) ng/mL NT-Pro-B Natriuret Pep (0-125) pg/mL Total Protein 7.4 (6.4-8.2) g/dl Albumin 2.7 L (3.4-5.0) g/dl Globulin 4.7 gm/dL Albumin/Globulin Ratio 0.6 L (1-2) SARS-CoV-2 RNA (CADE) (NEGATIVE) 12/08/20 12/08/20 12/08/20 Range/Units 08:40 08:56 09:30 WBC (3.98-10.04) K/mm3 RBC (3.98-5.22) M/mm3 Hgb (11.2-15.7) gm/dl Hct (34.1-44.9) % MCV (79.4-94.8) fl MCH (25.6-32.2) pg MCHC (32.2-35.5) g/dl RDW Std Deviation (36.4-46.3) fL Plt Count (182-369) K/mm3 MPV (9.4-12.3) fl Neut % (Auto) (34.0-71.1) % Lymph % (Auto) (19.3-51.7) % [place] % (Auto) (4.7-12.5) % Eos % (Auto) (0.7-5.8) Baso % (Auto) (0.1-1.2) % Neut # (Auto) (1.56-6.13) K/mm3 Lymph # (Auto) (1.18-3.74) K/mm3 [place] # (Auto) (0.24-0.36) K/mm3 Eos # (Auto) (0.04-0.36) K/mm3 Baso # (Auto) (0.01-0.08) K/mm3 Manual Slide Review PT (9.7-12.0) SECONDS INR D-Dimer, Quantitative (0.19-0.50) mg/L Puncture Site Rt radial ABG pH 7.39 (7.35-7.45) ABG pCO2 50.5 H (35.0-45.0) mmHg ABG pO2 48.0 L (80.0-100.0) mmHg ABG HCO3 29.5 H (22.0-26.0) meq/L ABG O2 Saturation 78.3 L (96.0-97.0) % ABG Base Excess 4.1 H (-2-2.0) [place] Test Positive A-a Gradient 38 mmHg O2 Delivery Device Room air Oxygen Flow Rate 0.0 FiO2 21.00 (21.00-100.00) % Sodium (136-145) mEq/L Potassium (3.5-5.1) mEq/L Chloride (98-107) mEq/L Carbon Dioxide (21-32) mEq/L Anion Gap (5-15) BUN (7-18) mg/dL Creatinine (0.55-1.02) mg/dL Est Cr Clr Drug Dosing mL/min Estimated GFR (MDRD) (>60) mL/min BUN/Creatinine Ratio (14-18) Glucose (74-106) mg/dL Calcium (8.5-10.1) mg/dL Total Bilirubin (0.2-1.0) mg/dL AST (15-37) U/L ALT (14-59) U/L Alkaline Phosphatase (46-116) U/L Troponin I (0.00-0.056) ng/mL NT-Pro-B Natriuret Pep 240 H (0-125) pg/mL Total Protein (6.4-8.2) g/dl Albumin (3.4-5.0) g/dl Globulin gm/dL Albumin/Globulin Ratio (1-2) SARS-CoV-2 RNA (CADE) Negative (NEGATIVE) Result Diagrams: 12/08/20 08:40 12/08/20 08:40 Sepsis Event Note - Evaluation Sepsis Screening Result: No Definite Risk - Focused Exam Vital Signs: Vital Signs Temp Pulse Resp BP Pulse Ox 12/08/20 08:28 36.8 C 105 H 24 H 161/73 H 73 L Problem List Initiated/Reviewed/Updated: Yes Orders Last 24hrs: Active Orders 24 hr Category Date Time Status Patient Status [ADT] Routine ADT 12/08/20 11:03 Active Bedrest Bathroom Privileges [RC] ASDIRECTED Care 12/08/20 12:08 Ordered Cardiac Monitoring [RC] . DIRECTED Care 12/08/20 08:32 Active EKG Documentation Completion [RC] STAT Care 12/08/20 08:32 Active Height and Weight [RC] DAILY Care 12/08/20 12:08 Ordered Intake and Output [RC] QSHIFT Care 12/08/20 12:09 Ordered Oxygen Therapy [RC] PRN Care 12/08/20 08:32 Active Oxygen Therapy [RC] PRN Care 12/08/20 12:08 Ordered Peripheral IV Care [RC] . DIRECTED Care 12/08/20 08:33 Active RT Aerosol Therapy [RC] ASDIRECTED Care 12/08/20 12:12 Ordered VTE/DVT Education [RC] PER UNIT ROUTINE Care 12/08/20 12:08 Ordered Vital Signs [RC] Q4H Care 12/08/20 12:08 Ordered Consult to Supervisor Hanging And Trimming [CONS] Routine Cons 12/08/20 12:13 Ordered 2 Gram Sodium Diet [DIET] Diet 12/08/20 Lunch Ordered CBC WITH AUTO DIFF [HEME] DAILY Lab 12/09/20 05:00 Ordered CBC WITH AUTO DIFF [HEME] DAILY Lab 12/10/20 05:00 Ordered CBC WITH AUTO DIFF [HEME] DAILY Lab 12/11/20 05:00 Ordered CBC WITH AUTO DIFF [HEME] DAILY Lab 12/12/20 05:00 Ordered CBC WITH AUTO DIFF [HEME] DAILY Lab 12/13/20 05:00 Ordered COMPREHENSIVE METABOLIC PN,CMP [CHEM] DAILY Lab 12/09/20 05:00 Ordered COMPREHENSIVE METABOLIC PN,CMP [CHEM] DAILY Lab 12/10/20 05:00 Ordered COMPREHENSIVE METABOLIC PN,CMP [CHEM] DAILY Lab 12/11/20 05:00 Ordered COMPREHENSIVE METABOLIC PN,CMP [CHEM] DAILY Lab 12/12/20 05:00 Ordered COMPREHENSIVE METABOLIC PN,CMP [CHEM] DAILY Lab 12/13/20 05:00 Ordered CULTURE MRSA [RM] Stat Lab 12/08/20 12:13 Ordered CULTURE SPUTUM + SMEAR [RM] Stat Lab 12/08/20 12:13 Ordered HCG QUALITATIVE,URINE [URCHEM] Routine Lab 12/08/20 12:13 Ordered INR,PT,PROTHROMBIN TIME [COAG] DAILY Lab 12/09/20 05:00 Ordered INR,PT,PROTHROMBIN TIME [COAG] DAILY Lab 12/10/20 05:00 Ordered INR,PT,PROTHROMBIN TIME [COAG] DAILY Lab 12/11/20 05:00 Ordered INR,PT,PROTHROMBIN TIME [COAG] DAILY Lab 12/12/20 05:00 Ordered INR,PT,PROTHROMBIN TIME [COAG] DAILY Lab 12/13/20 05:00 Ordered INR,PT,PROTHROMBIN TIME [COAG] DAILY Lab 12/14/20 05:00 Ordered MAGNESIUM [CHEM] Routine Lab 12/08/20 12:12 Ordered TROPONIN I [CHEM] Q6H Lab 12/08/20 12:12 Ordered TROPONIN I [CHEM] Q6H Lab 12/08/20 18:12 Ordered Acetaminophen [TylenoL] Med 12/08/20 12:08 Ordered 650 mg PO Q6H PRN Albuterol/Ipratropium [DuoNeb 3.0-0.5 MG/3 ML] Med 12/08/20 12:08 Ordered 3 ml NEB Q4H PRN Furosemide [Lasix] Med 12/08/20 12:30 Ordered 20 mg IVPUSH BID Metoprolol Tartrate [Lopressor] Med 12/08/20 12:30 Ordered 12.5 mg PO Q12H Morphine Med 12/08/20 12:08 Ordered 2 mg IVPUSH Q4H PRN Multivitamin [Multivitamin] Med 12/08/20 12:30 Ordered 1 tab PO DAILY Potassium Chloride [Klor-Con M20] Med 12/08/20 15:00 Ordered 20 meq PO TID Promethazine [Phenergan] 12.5 mg Med 12/08/20 12:08 Ordered Sodium Chloride 0.9% [Normal Saline] 50 ml IV Q6H Rosuvastatin [Crestor] Med 12/08/20 12:30 Ordered 20 mg PO DAILY Sodium Chloride 0.9% [Saline Flush] Med 12/08/20 08:32 Active 10 ml FLUSH ASDIRECTED PRN amLODIPine [Norvasc] Med 12/08/20 12:15 Ordered 10 mg PO DAILY hydrALAZINE [Apresoline] Med 12/08/20 12:18 Ordered 10 mg IVPUSH Q4H PRN lisinopriL [Prinivil] Med 12/08/20 12:15 Ordered 40 mg PO DAILY Peripheral IV Insertion Adult [OM.PC] Stat Oth 12/08/20 08:32 Ordered Resuscitation Status Routine Resus Stat 12/08/20 12:08 Ordered Medication Orders Acetaminophen (Acetaminophen 325 Mg Tab) 650 mg PO Q6H PRN PRN Reason: Pain (Mild 1-3)/fever Albuterol/Ipratropium (Albuterol/Ipratropium 3.0-0.5 Mg/3 Ml Neb Soln) 3 ml NEB Q4H PRN PRN Reason: Shortness Of Breath/wheezing Amlodipine Besylate (Amlodipine 10 Mg Tab) 10 mg PO DAILY NATACHA Furosemide (Furosemide 20 Mg/2 Ml Vial) 20 mg IVPUSH BID NATACHA Hydralazine HCl (Hydralazine 20 Mg/Ml Sdv) 10 mg IVPUSH Q4H PRN PRN Reason: Hypertension Promethazine HCl 12.5 mg/ (Sodium Chloride) 50.5 mls @ 100 mls/hr IV Q6H PRN PRN Reason: Nausea/Vomiting Lisinopril (Lisinopril 20 Mg Tab) 40 mg PO DAILY NATACHA Metoprolol Tartrate (Metoprolol Tartrate 25 Mg Tab) 12.5 mg PO Q12H NATACHA Morphine Sulfate (Morphine 2 Mg/Ml Syringe) 2 mg IVPUSH Q4H PRN PRN Reason: Pain (severe 7-10) Stop: 12/09/20 12:10 Multivitamins (Multivitamins,Therapeutic Tab) 1 each PO DAILY NATACHA Potassium Chloride (Potassium Chloride 20 Meq Tab.Er) 20 meq PO TID NATACHA Rosuvastatin Calcium (Rosuvastatin 10 Mg Tab) 20 mg PO DAILY NATACHA Sodium Chloride (Sodium Chloride 0.9% 10 Ml Syringe) 10 ml FLUSH ASDIRECTED PRN PRN Reason: Keep Vein Open Last Admin: 12/08/20 08:49 Dose: 10 ml Documented by: DANI Assessment/Plan Comment:: Patient is a 50-year-old female with a history of CHF, hypertension, history of PE on Coumadin and morbid obesity who presented to the ER due to shortness of breath and bloody diarrhea. Assessment and plan: 1. Acute hypoxic and hypercapnic respiratory failure Could be due to CHF exacerbation and obesity hypoventilation syndrome D-dimer is negative Pulse ox Oxygen therapy to keep oxygen saturation to greater than 92% Sleep study as an outpatient 2. Diastolic CHF exacerbation BNP 240. CXR - mild cardiomegaly Echocardiogram Lasix to 40 mg was given in the ER Lasix 20 mg IV twice daily (do not want to give her too much Lasix at this moment since she has diarrhea) Continue lisinopril 40 milligramsdaily Intake and output Daily weight 3. GI bleeding Hemoglobin 12.5 BUN/creatinine ratio 11.4 Pantoprazole [address] Archuleta consult. Would really appreciate it 4. Morbid obesity, BMI 70.5 Dietitian consult Follow with PCP 5. HTN Continue home amlodipine 10 mg daily and lisinopril 40 mg daily. I added metoprolol 12.5 mg twice daily Hydralazine as needed 6. Hx of PE on warfarin 7. Supratherapeutic INR, 6.91 Warfarin is on hold No bleeding Repeat INR daily 8. Rash Monitor 9. DVT prophylaxis: Supratherapeutic INR 10. CODE STATUS: Full - Mortality Measure Prognosis:: Good
[2020-12-08] MEDS: Metoprolol Tartrate 25 MG Tab PO SCH (15:18)
[2020-12-08] MEDS: Potassium Chloride 20 MEQ Tab.ER PO SCH ×2 (15:20→21:45)
[2020-12-08] MEDS: Nystatin Topical Powder 15 GM Bottle TOP SCH ×2 (16:46→21:45)
[2020-12-08] MEDS: Furosemide 20 MG/2 ML VIAL IVPUSH SCH ×2 (16:46→21:45)
[2020-12-08] MEDS: Acetaminophen 325 MG Tab PO PRN (17:14)
[2020-12-08] MEDS ORDERED: Pantoprazole 40 MG Tab.CR PO SCH (21:00)
[2020-12-09] MEDS: Metoprolol Tartrate 25 MG Tab PO SCH ×2 (00:30→12:01)
[2020-12-09] MEDS ORDERED: Furosemide 20 MG/2 ML VIAL IVPUSH SCH (06:00)
[2020-12-09] MEDS: Acetaminophen 325 MG Tab PO PRN ×2 (06:59→18:38)
[2020-12-09] MEDS: Potassium Chloride 20 MEQ Tab.ER PO SCH ×3 (09:06→20:21)
[2020-12-09] MEDS: Rosuvastatin 10 MG Tab PO SCH (09:07)
[2020-12-09] MEDS: amLODIPine 10 MG Tab PO SCH (09:07)
[2020-12-09] MEDS: Multivitamins,Therapeutic Tab PO SCH (09:08)
[2020-12-09] MEDS: Lisinopril 20 MG Tab PO SCH (09:08)
[2020-12-09] MEDS: Nystatin Topical Powder 15 GM Bottle TOP SCH ×2 (10:18→20:21)
--- NOTE | 2020-12-09 10:42 | PCM.PN ---
- General Info Date of Service: 12/09/20 Admission Dx/Problem (Free Text): Admission Diagnosis/Problem Admission Diagnosis/Problem CHF, Congestive heart failure Subjective Update: Patient states that she is feeling much better. Weight is down 16 pounds. She is on 1 L of O2 via nasal cannula legs are less edematous. Hemoglobin is stable at 11.6, down a little from 12.5, and INR is down to 4.73. No more reported bloody bowel movements. It appears she does not have active GI bleed. Functional Status: Reports: Pain Controlled - Review of Systems General: Reports: No Symptoms HEENT: Reports: No Symptoms Pulmonary: Reports: No Symptoms Cardiovascular: Reports: No Symptoms Gastrointestinal: Reports: No Symptoms Musculoskeletal: Reports: No Symptoms - Patient Data Vitals - Most Recent: Last Vital Signs Temp 97.7 F 12/09/20 08:23 Pulse 92 12/09/20 08:23 Resp 16 12/09/20 08:23 BP 139/72 12/09/20 09:08 Pulse Ox 95 12/09/20 08:23 Weight - Most Recent: 382 lb 12.8 oz I&O - Last 24 Hours: Intake & Output 12/08/20 12/09/20 12/09/20 22:59 06:59 14:59 Intake Total 620 600 Output Total 3200 1600 Balance -2580 -1000 Lab Results Last 24 Hours: Laboratory Results - last 24 hr 12/08/20 12/08/20 12/08/20 Range/Units 12:13 12:35 15:00 WBC (3.98-10.04) K/mm3 RBC (3.98-5.22) M/mm3 Hgb (11.2-15.7) gm/dl Hct (34.1-44.9) % MCV (79.4-94.8) fl MCH (25.6-32.2) pg MCHC (32.2-35.5) g/dl RDW Std Deviation (36.4-46.3) fL Plt Count (182-369) K/mm3 MPV (9.4-12.3) fl Neut % (Auto) (34.0-71.1) % Lymph % (Auto) (19.3-51.7) % [place] % (Auto) (4.7-12.5) % Eos % (Auto) (0.7-5.8) Baso % (Auto) (0.1-1.2) % Neut # (Auto) (1.56-6.13) K/mm3 Lymph # (Auto) (1.18-3.74) K/mm3 [place] # (Auto) (0.24-0.36) K/mm3 Eos # (Auto) (0.04-0.36) K/mm3 Baso # (Auto) (0.01-0.08) K/mm3 Manual Slide Review PT (9.7-12.0) SECONDS INR Sodium (136-145) mEq/L Potassium (3.5-5.1) mEq/L Chloride (98-107) mEq/L Carbon Dioxide (21-32) mEq/L Anion Gap (5-15) BUN (7-18) mg/dL Creatinine (0.55-1.02) mg/dL Est Cr Clr Drug Dosing mL/min Estimated GFR (MDRD) (>60) mL/min BUN/Creatinine Ratio (14-18) Glucose (74-106) mg/dL Calcium (8.5-10.1) mg/dL Magnesium 2.1 (1.8-2.4) mg/dl Total Bilirubin (0.2-1.0) mg/dL AST (15-37) U/L ALT (14-59) U/L Alkaline Phosphatase (46-116) U/L Troponin I < 0.017 (0.00-0.056) ng/mL Total Protein (6.4-8.2) g/dl Albumin (3.4-5.0) g/dl Globulin gm/dL Albumin/Globulin Ratio (1-2) Urine HCG, Qual Negative (NEGATIVE) MRSA (PCR) Negative 12/08/20 12/09/20 12/09/20 Range/Units 18:20 04:48 04:48 WBC 10.74 H (3.98-10.04) K/mm3 RBC 4.69 (3.98-5.22) M/mm3 Hgb 11.6 (11.2-15.7) gm/dl Hct 42.2 (34.1-44.9) % MCV 90.0 (79.4-94.8) fl MCH 24.7 L (25.6-32.2) pg MCHC 27.5 L (32.2-35.5) g/dl RDW Std Deviation 56.1 H (36.4-46.3) fL Plt Count 305 (182-369) K/mm3 MPV 10.8 (9.4-12.3) fl Neut % (Auto) 77.0 H (34.0-71.1) % Lymph % (Auto) 14.5 L (19.3-51.7) % [place] % (Auto) 6.1 (4.7-12.5) % Eos % (Auto) 2.0 (0.7-5.8) Baso % (Auto) 0.2 (0.1-1.2) % Neut # (Auto) 8.27 H (1.56-6.13) K/mm3 Lymph # (Auto) 1.56 (1.18-3.74) K/mm3 [place] # (Auto) 0.66 H (0.24-0.36) K/mm3 Eos # (Auto) 0.21 (0.04-0.36) K/mm3 Baso # (Auto) 0.02 (0.01-0.08) K/mm3 Manual Slide Review Abnormal smear PT 49.1 H D (9.7-12.0) SECONDS INR 4.73 Sodium (136-145) mEq/L Potassium (3.5-5.1) mEq/L Chloride (98-107) mEq/L Carbon Dioxide (21-32) mEq/L Anion Gap (5-15) BUN (7-18) mg/dL Creatinine (0.55-1.02) mg/dL Est Cr Clr Drug Dosing mL/min Estimated GFR (MDRD) (>60) mL/min BUN/Creatinine Ratio (14-18) Glucose (74-106) mg/dL Calcium (8.5-10.1) mg/dL Magnesium (1.8-2.4) mg/dl Total Bilirubin (0.2-1.0) mg/dL AST (15-37) U/L ALT (14-59) U/L Alkaline Phosphatase (46-116) U/L Troponin I < 0.017 (0.00-0.056) ng/mL Total Protein (6.4-8.2) g/dl Albumin (3.4-5.0) g/dl Globulin gm/dL Albumin/Globulin Ratio (1-2) Urine HCG, Qual (NEGATIVE) MRSA (PCR) 12/09/20 Range/Units 04:48 WBC (3.98-10.04) K/mm3 RBC (3.98-5.22) M/mm3 Hgb (11.2-15.7) gm/dl Hct (34.1-44.9) % MCV (79.4-94.8) fl MCH (25.6-32.2) pg MCHC (32.2-35.5) g/dl RDW Std Deviation (36.4-46.3) fL Plt Count (182-369) K/mm3 MPV (9.4-12.3) fl Neut % (Auto) (34.0-71.1) % Lymph % (Auto) (19.3-51.7) % [place] % (Auto) (4.7-12.5) % Eos % (Auto) (0.7-5.8) Baso % (Auto) (0.1-1.2) % Neut # (Auto) (1.56-6.13) K/mm3 Lymph # (Auto) (1.18-3.74) K/mm3 [place] # (Auto) (0.24-0.36) K/mm3 Eos # (Auto) (0.04-0.36) K/mm3 Baso # (Auto) (0.01-0.08) K/mm3 Manual Slide Review PT (9.7-12.0) SECONDS INR Sodium 144 (136-145) mEq/L Potassium 4.3 (3.5-5.1) mEq/L Chloride 105 (98-107) mEq/L Carbon Dioxide 34 H (21-32) mEq/L Anion Gap 9.3 (5-15) BUN 10 (7-18) mg/dL Creatinine 0.7 (0.55-1.02) mg/dL Est Cr Clr Drug Dosing 69.83 mL/min Estimated GFR (MDRD) > 60 (>60) mL/min BUN/Creatinine Ratio 14.3 (14-18) Glucose 98 (74-106) mg/dL Calcium 8.6 (8.5-10.1) mg/dL Magnesium (1.8-2.4) mg/dl Total Bilirubin 0.5 (0.2-1.0) mg/dL AST 29 (15-37) U/L ALT 26 (14-59) U/L Alkaline Phosphatase 97 (46-116) U/L Troponin I (0.00-0.056) ng/mL Total Protein 6.7 (6.4-8.2) g/dl Albumin 2.5 L (3.4-5.0) g/dl Globulin 4.2 gm/dL Albumin/Globulin Ratio 0.6 L (1-2) Urine HCG, Qual (NEGATIVE) MRSA (PCR) Pete Results Last 24 Hours: Microbiology 12/08/20 16:50 Wound Culture - Preliminary Breast, Left Gram Positive Cocci Med Orders - Current: Current Medications Acetaminophen (Acetaminophen 325 Mg Tab) 650 mg PO Q6H PRN PRN Reason: Pain (Mild 1-3)/fever Last Admin: 12/09/20 06:59 Dose: 650 mg Documented by: Albuterol/Ipratropium (Albuterol/Ipratropium 3.0-0.5 Mg/3 Ml Neb Soln) 3 ml NEB Q4H PRN PRN Reason: Shortness Of Breath/wheezing Amlodipine Besylate (Amlodipine 10 Mg Tab) 10 mg PO DAILY [facility] Last Admin: 12/09/20 09:07 Dose: 10 mg Documented by: Furosemide (Furosemide 20 Mg/2 Ml Vial) 20 mg IVPUSH BIDDIURETIC [facility] Last Admin: 12/09/20 06:51 Dose: 20 mg Documented by: Hydralazine HCl (Hydralazine 20 Mg/Ml Sdv) 10 mg IVPUSH Q4H PRN PRN Reason: Hypertension Promethazine HCl 12.5 mg/ (Sodium Chloride) 50.5 mls @ 100 mls/hr IV Q6H PRN PRN Reason: Nausea/Vomiting Lisinopril (Lisinopril 20 Mg Tab) 40 mg PO DAILY [facility] Last Admin: 12/09/20 09:08 Dose: 40 mg Documented by: Metoprolol Tartrate (Metoprolol Tartrate 25 Mg Tab) 12.5 mg PO Q12H [facility] Last Admin: 12/09/20 00:30 Dose: 12.5 mg Documented by: Morphine Sulfate (Morphine 2 Mg/Ml Syringe) 2 mg IVPUSH Q4H PRN PRN Reason: Pain (severe 7-10) Stop: 12/09/20 12:10 Multivitamins (Multivitamins,Therapeutic Tab) 1 each PO DAILY [facility] Last Admin: 12/09/20 09:08 Dose: 1 each Documented by: Mupirocin (Mupirocin Oint 22 Gm Tube) 1 gm TOP TID [facility] Nystatin (Nystatin Topical Powder 15 Gm Bottle) 0 gm TOP BID [facility] Last Admin: 12/09/20 10:18 Dose: 15 applic Documented by: Pantoprazole Sodium (Pantoprazole 40 Mg Tab.Cr) 40 mg PO BEDTIME [facility] Last Admin: 12/08/20 21:45 Dose: 40 mg Documented by: Potassium Chloride (Potassium Chloride 20 Meq Tab.Er) 20 meq PO TID [facility] Last Admin: 12/09/20 09:06 Dose: 20 meq Documented by: Rosuvastatin Calcium (Rosuvastatin 10 Mg Tab) 20 mg PO DAILY [facility] Last Admin: 12/09/20 09:07 Dose: 20 mg Documented by: Sodium Chloride (Sodium Chloride 0.9% 10 Ml Syringe) 10 ml FLUSH ASDIRECTED PRN PRN Reason: Keep Vein Open Last Admin: 12/08/20 08:49 Dose: 10 ml Documented by: Discontinued Medications Furosemide (Furosemide 40 Mg/4 Ml Vial) 40 mg IVPUSH NOW ONE Stop: 12/08/20 10:33 Last Admin: 12/08/20 11:18 Dose: 40 mg Documented by: Furosemide (Furosemide 20 Mg/2 Ml Vial) 20 mg IVPUSH BID [facility] Last Admin: 12/08/20 21:45 Dose: 20 mg Documented by: - Exam Quality Assessment: Supplemental Oxygen HEENT: Pupils Equal, Mucous Membr. Moist/[place] Lungs: Clear to Auscultation, Normal Respiratory Effort Cardiovascular: Regular Rate, Regular Rhythm GI/Abdominal Exam: Normal Bowel Sounds, Soft, Non-Tender, No Organomegaly, No Distention, No Abnormal Bruit Extremities: Non-Tender, Pedal Edema Skin: Other (Under left breast, erythematous) Psy/Mental Status: Alert, Normal Affect, Normal Mood - Patient Data Lab Results Last 24 hrs: Laboratory Results - last 24 hr 12/08/20 12/08/20 12/08/20 Range/Units 12:13 12:35 15:00 WBC (3.98-10.04) K/mm3 RBC (3.98-5.22) M/mm3 Hgb (11.2-15.7) gm/dl Hct (34.1-44.9) % MCV (79.4-94.8) fl MCH (25.6-32.2) pg MCHC (32.2-35.5) g/dl RDW Std Deviation (36.4-46.3) fL Plt Count (182-369) K/mm3 MPV (9.4-12.3) fl Neut % (Auto) (34.0-71.1) % Lymph % (Auto) (19.3-51.7) % [place] % (Auto) (4.7-12.5) % Eos % (Auto) (0.7-5.8) Baso % (Auto) (0.1-1.2) % Neut # (Auto) (1.56-6.13) K/mm3 Lymph # (Auto) (1.18-3.74) K/mm3 [place] # (Auto) (0.24-0.36) K/mm3 Eos # (Auto) (0.04-0.36) K/mm3 Baso # (Auto) (0.01-0.08) K/mm3 Manual Slide Review PT (9.7-12.0) SECONDS INR Sodium (136-145) mEq/L Potassium (3.5-5.1) mEq/L Chloride (98-107) mEq/L Carbon Dioxide (21-32) mEq/L Anion Gap (5-15) BUN (7-18) mg/dL Creatinine (0.55-1.02) mg/dL Est Cr Clr Drug Dosing mL/min Estimated GFR (MDRD) (>60) mL/min BUN/Creatinine Ratio (14-18) Glucose (74-106) mg/dL Calcium (8.5-10.1) mg/dL Magnesium 2.1 (1.8-2.4) mg/dl Total Bilirubin (0.2-1.0) mg/dL AST (15-37) U/L ALT (14-59) U/L Alkaline Phosphatase (46-116) U/L Troponin I < 0.017 (0.00-0.056) ng/mL Total Protein (6.4-8.2) g/dl Albumin (3.4-5.0) g/dl Globulin gm/dL Albumin/Globulin Ratio (1-2) Urine HCG, Qual Negative (NEGATIVE) MRSA (PCR) Negative 12/08/20 12/09/20 12/09/20 Range/Units 18:20 04:48 04:48 WBC 10.74 H (3.98-10.04) K/mm3 RBC 4.69 (3.98-5.22) M/mm3 Hgb 11.6 (11.2-15.7) gm/dl Hct 42.2 (34.1-44.9) % MCV 90.0 (79.4-94.8) fl MCH 24.7 L (25.6-32.2) pg MCHC 27.5 L (32.2-35.5) g/dl RDW Std Deviation 56.1 H (36.4-46.3) fL Plt Count 305 (182-369) K/mm3 MPV 10.8 (9.4-12.3) fl Neut % (Auto) 77.0 H (34.0-71.1) % Lymph % (Auto) 14.5 L (19.3-51.7) % [place] % (Auto) 6.1 (4.7-12.5) % Eos % (Auto) 2.0 (0.7-5.8) Baso % (Auto) 0.2 (0.1-1.2) % Neut # (Auto) 8.27 H (1.56-6.13) K/mm3 Lymph # (Auto) 1.56 (1.18-3.74) K/mm3 [place] # (Auto) 0.66 H (0.24-0.36) K/mm3 Eos # (Auto) 0.21 (0.04-0.36) K/mm3 Baso # (Auto) 0.02 (0.01-0.08) K/mm3 Manual Slide Review Abnormal smear PT 49.1 H D (9.7-12.0) SECONDS INR 4.73 Sodium (136-145) mEq/L Potassium (3.5-5.1) mEq/L Chloride (98-107) mEq/L Carbon Dioxide (21-32) mEq/L Anion Gap (5-15) BUN (7-18) mg/dL Creatinine (0.55-1.02) mg/dL Est Cr Clr Drug Dosing mL/min Estimated GFR (MDRD) (>60) mL/min BUN/Creatinine Ratio (14-18) Glucose (74-106) mg/dL Calcium (8.5-10.1) mg/dL Magnesium (1.8-2.4) mg/dl Total Bilirubin (0.2-1.0) mg/dL AST (15-37) U/L ALT (14-59) U/L Alkaline Phosphatase (46-116) U/L Troponin I < 0.017 (0.00-0.056) ng/mL Total Protein (6.4-8.2) g/dl Albumin (3.4-5.0) g/dl Globulin gm/dL Albumin/Globulin Ratio (1-2) Urine HCG, Qual (NEGATIVE) MRSA (PCR) 12/09/20 Range/Units 04:48 WBC (3.98-10.04) K/mm3 RBC (3.98-5.22) M/mm3 Hgb (11.2-15.7) gm/dl Hct (34.1-44.9) % MCV (79.4-94.8) fl MCH (25.6-32.2) pg MCHC (32.2-35.5) g/dl RDW Std Deviation (36.4-46.3) fL Plt Count (182-369) K/mm3 MPV (9.4-12.3) fl Neut % (Auto) (34.0-71.1) % Lymph % (Auto) (19.3-51.7) % [place] % (Auto) (4.7-12.5) % Eos % (Auto) (0.7-5.8) Baso % (Auto) (0.1-1.2) % Neut # (Auto) (1.56-6.13) K/mm3 Lymph # (Auto) (1.18-3.74) K/mm3 [place] # (Auto) (0.24-0.36) K/mm3 Eos # (Auto) (0.04-0.36) K/mm3 Baso # (Auto) (0.01-0.08) K/mm3 Manual Slide Review PT (9.7-12.0) SECONDS INR Sodium 144 (136-145) mEq/L Potassium 4.3 (3.5-5.1) mEq/L Chloride 105 (98-107) mEq/L Carbon Dioxide 34 H (21-32) mEq/L Anion Gap 9.3 (5-15) BUN 10 (7-18) mg/dL Creatinine 0.7 (0.55-1.02) mg/dL Est Cr Clr Drug Dosing 69.83 mL/min Estimated GFR (MDRD) > 60 (>60) mL/min BUN/Creatinine Ratio 14.3 (14-18) Glucose 98 (74-106) mg/dL Calcium 8.6 (8.5-10.1) mg/dL Magnesium (1.8-2.4) mg/dl Total Bilirubin 0.5 (0.2-1.0) mg/dL AST 29 (15-37) U/L ALT 26 (14-59) U/L Alkaline Phosphatase 97 (46-116) U/L Troponin I (0.00-0.056) ng/mL Total Protein 6.7 (6.4-8.2) g/dl Albumin 2.5 L (3.4-5.0) g/dl Globulin 4.2 gm/dL Albumin/Globulin Ratio 0.6 L (1-2) Urine HCG, Qual (NEGATIVE) MRSA (PCR) Result Diagrams: 12/09/20 04:48 12/09/20 04:48 Pete Results Last 24 hrs: Microbiology 12/08/20 16:50 Wound Culture - Preliminary Breast, Left Gram Positive Cocci Sepsis Event Note - Evaluation Sepsis Screening Result: No Definite Risk - Focused Exam Vital Signs: Vital Signs Temp Pulse Resp BP Pulse Ox Pulse Ox 12/09/20 09:08 139/72 12/09/20 09:07 139/72 12/09/20 08:23 97.7 F 92 16 139/72 95 12/09/20 06:43 92 L 12/09/20 04:57 88 119/70 93 L 12/09/20 04:56 94 20 92 L 12/09/20 00:30 100 115/63 12/09/20 00:29 98.4 F 100 20 115/63 90 L - Problem List & Annotations (1) Staph skin infection SNOMED Code(s): 754852587 Code(s): L08.9 - LOCAL INFECTION OF THE SKIN AND SUBCUTANEOUS TISSUE, UNSP; B95.8 - UNSP STAPHYLOCOCCUS THE CAUSE OF DISEASES CLASSD [id number] Status: Acute Current Visit: Yes (2) CHF exacerbation SNOMED Code(s): 197916248, 73073371397279 Code(s): I50.9 - HEART FAILURE, UNSPECIFIED Status: Acute Current Visit: Yes Qualifiers: Heart failure type: diastolic Qualified Code(s): I50.33 - Acute on chronic diastolic (congestive) heart failure (3) GI bleed SNOMED Code(s): 88888415 Code(s): K92.2 - GASTROINTESTINAL HEMORRHAGE, UNSPECIFIED Status: Acute Current Visit: Yes Qualifiers: GI bleed type/associated pathology: melena Qualified Code(s): K92.1 - Melena (4) Hypoxia SNOMED Code(s): 974288735 Code(s): R09.02 - HYPOXEMIA Status: Acute Current Visit: Yes (5) Morbid obesity with BMI of 70 and over, adult SNOMED Code(s): 689507291 Code(s): E66.01 - MORBID (SEVERE) OBESITY DUE TO EXCESS CALORIES; Z68.45 - B DULCE MASS INDEX [BMI] 70 OR GREATER, ADULT Status: Acute Current Visit: Yes (6) Supratherapeutic INR SNOMED Code(s): 928575044 Code(s): R79.1 - ABNORMAL COAGULATION PROFILE Status: Acute Current Visit: Yes - Problem List Review Problem List Initiated/Reviewed/Updated: Yes - My Orders Last 24 Hours: My Active Orders 12/09/20 15:00 Mupirocin Oint [Bactroban Oint] 1 gm TOP TID - Plan Plan:: Patient is a 50-year-old female with a history of CHF, hypertension, history of PE on Coumadin and morbid obesity who presented to the ER due to shortness of breath and bloody diarrhea. Assessment and plan: 1. Acute hypoxic and hypercapnic respiratory failure Could be due to CHF exacerbation and obesity hypoventilation syndrome D-dimer is negative Pulse ox Oxygen therapy to keep oxygen saturation to greater than 92% Sleep study as an outpatient 2. Diastolic CHF exacerbation BNP 240. 16 pound weight loss CXR - mild cardiomegaly Echocardiogram Lasix to 40 mg was given in the ER Lasix 20 mg IV 3 times daily 16 pound weight loss Continue lisinopril 40 mg daily Intake and output Daily weight 3. GI bleeding Hemoglobin 12.5-->11.6 BUN/creatinine ratio 11.4-->14.3 Pantoprazole 40 mg BID Patient is too heavy to be able to do endoscopy at our facility 4. Morbid obesity, BMI 70.5 on admission, currently 60 Dietitian consult Follow with PCP 5. HTN Continue home amlodipine 10 mg daily and lisinopril 40 mg daily. Added metoprolol 12.5 mg twice daily Hydralazine as needed 6. Hx of PE on warfarin 7. Supratherapeutic INR, 6.91-->4.7 Warfarin is on hold No bleeding Repeat INR daily 8. Rash under left breast Staff aureus growing from culture result Start Bactroban 3 times daily Monitor 9. DVT prophylaxis: Supratherapeutic INR, patient is fully anticoagulated for both DVT treatment and prophylaxis 10. CODE STATUS: Full
[2020-12-09] MEDS: Pantoprazole 40 MG Tab.CR PO SCH ×2 (12:01→20:21)
[2020-12-09] MEDS: Furosemide 20 MG/2 ML VIAL IVPUSH SCH ×2 (12:02→18:38)
[2020-12-09] MEDS: Mupirocin Oint 22 GM Tube TOP SCH ×2 (15:32→20:23)
[2020-12-10] MEDS: Metoprolol Tartrate 25 MG Tab PO SCH ×3 (00:24→21:06)
[2020-12-10] MEDS ORDERED: Pantoprazole 40 MG Tab.CR PO SCH (06:00)
[2020-12-10] MEDS: amLODIPine 10 MG Tab PO SCH (08:43)
[2020-12-10] MEDS: Potassium Chloride 20 MEQ Tab.ER PO SCH ×3 (08:43→21:08)
[2020-12-10] MEDS: Lisinopril 20 MG Tab PO SCH (08:43)
[2020-12-10] MEDS: Multivitamins,Therapeutic Tab PO SCH (08:43)
[2020-12-10] MEDS: Rosuvastatin 10 MG Tab PO SCH (08:43)
[2020-12-10] MEDS: Pantoprazole 40 MG Tab.CR PO SCH ×2 (08:43→21:08)
[2020-12-10] MEDS: Furosemide 20 MG/2 ML VIAL IVPUSH SCH (08:43)
--- NOTE | 2020-12-10 08:45 | CR ---
Chest: Portable view of the chest was obtained. Comparison: Prior chest x-ray of 12/08/20 and 01/09/20. Heart is slightly enlarged for portable technique. Lungs are clear with no acute parenchymal change. Bony structures show nothing acute. Impression: 1. Heart is slightly enlarged for portable technique. 2. Nothing acute is otherwise seen. Diagnostic code #2
--- NOTE | 2020-12-10 08:58 | PCM.PN ---
- General Info Date of Service: 12/10/20 Admission Dx/Problem (Free Text): Admission Diagnosis/Problem Admission Diagnosis/Problem CHF, Congestive heart failure Subjective Update: In to see Claire. She is doing quite well. She is down 20 pounds today. She remains on 1 L of oxygen but we have been working on weaning this. Wound under the left breast is growing staph aureus and mupirocin cream is being applied. Labs and vital signs otherwise remained stable. Likely discharge tomorrow pending continued improvement. She may require oxygen at discharge. It is re ported that she had some blood in her urine yesterday however this appears to have resolved today as well. No blood in her stool anymore. Dietitian has been educating her. Functional Status: Reports: Pain Controlled, Tolerating Diet, Ambulating, Urinating. Denies: New Symptoms - Review of Systems General: Reports: No Symptoms. Denies: Fever, Weakness, Fatigue, Malaise, Chills HEENT: Reports: No Symptoms. Denies: Headaches, Sore Throat Pulmonary: Reports: No Symptoms. Denies: Shortness of Breath (on oxygen ), Cough, Sputum Cardiovascular: Reports: Dyspnea on Exertion. Denies: Chest Pain, Palpitations Gastrointestinal: Reports: No Symptoms. Denies: Abdominal Pain, Constipation, Diarrhea, Nausea, Vomiting Genitourinary: Reports: No Symptoms. Denies: Pain Musculoskeletal: Reports: No Symptoms Skin: Reports: No Symptoms. Denies: Cyanosis Neurological: Reports: No Symptoms. Denies: Confusion, Pre-Existing Deficit, Di fficulty Walking, Gait Disturbance Psychiatric: Reports: No Symptoms - Patient Data Vitals - Most Recent: Last Vital Signs Temp 98.8 F 12/10/20 06:03 Pulse 89 12/10/20 06:03 Resp 22 H 12/10/20 06:03 BP 116/62 12/10/20 08:43 Pulse Ox 96 12/10/20 08:46 Weight - Most Recent: 378 lb 14.4 oz I&O - Last 24 Hours: Intake & Output 12/09/20 12/10/20 12/10/20 22:59 06:59 14:59 Intake Total 620 650 Output Total 1950 700 Balance -1330 -50 Lab Results Last 24 Hours: Laboratory Results - last 24 hr 12/09/20 12/10/20 12/10/20 Range/Units 21:59 04:40 04:40 WBC 9.39 (3.98-10.04) K/mm3 RBC 4.78 (3.98-5.22) M/mm3 Hgb 11.6 11.8 (11.2-15.7) gm/dl Hct 42.0 42.9 (34.1-44.9) % MCV 89.7 (79.4-94.8) fl MCH 24.7 L (25.6-32.2) pg MCHC 27.5 L (32.2-35.5) g/dl RDW Std Deviation 56.1 H (36.4-46.3) fL Plt Count 300 (182-369) K/mm3 MPV 10.7 (9.4-12.3) fl Neut % (Auto) 77.1 H (34.0-71.1) % Lymph % (Auto) 14.7 L (19.3-51.7) % [place] % (Auto) 6.1 (4.7-12.5) % Eos % (Auto) 1.9 (0.7-5.8) Baso % (Auto) 0.1 (0.1-1.2) % Neut # (Auto) 7.24 H (1.56-6.13) K/mm3 Lymph # (Auto) 1.38 (1.18-3.74) K/mm3 [place] # (Auto) 0.57 H (0.24-0.36) K/mm3 Eos # (Auto) 0.18 (0.04-0.36) K/mm3 Baso # (Auto) 0.01 (0.01-0.08) K/mm3 Manual Slide Review Abnormal smear PT 26.5 H D (9.7-12.0) SECONDS INR 2.49 Sodium (136-145) mEq/L Potassium (3.5-5.1) mEq/L Chloride (98-107) mEq/L Carbon Dioxide (21-32) mEq/L Anion Gap (5-15) BUN (7-18) mg/dL Creatinine (0.55-1.02) mg/dL Est Cr Clr Drug Dosing mL/min Estimated GFR (MDRD) (>60) mL/min BUN/Creatinine Ratio (14-18) Glucose (74-106) mg/dL Calcium (8.5-10.1) mg/dL Total Bilirubin (0.2-1.0) mg/dL AST (15-37) U/L ALT (14-59) U/L Alkaline Phosphatase (46-116) U/L Total Protein (6.4-8.2) g/dl Albumin (3.4-5.0) g/dl Globulin gm/dL Albumin/Globulin Ratio (1-2) 12/10/20 Range/Units 04:40 WBC (3.98-10.04) K/mm3 RBC (3.98-5.22) M/mm3 Hgb (11.2-15.7) gm/dl Hct (34.1-44.9) % MCV (79.4-94.8) fl MCH (25.6-32.2) pg MCHC (32.2-35.5) g/dl RDW Std Deviation (36.4-46.3) fL Plt Count (182-369) K/mm3 MPV (9.4-12.3) fl Neut % (Auto) (34.0-71.1) % Lymph % (Auto) (19.3-51.7) % [place] % (Auto) (4.7-12.5) % Eos % (Auto) (0.7-5.8) Baso % (Auto) (0.1-1.2) % Neut # (Auto) (1.56-6.13) K/mm3 Lymph # (Auto) (1.18-3.74) K/mm3 [place] # (Auto) (0.24-0.36) K/mm3 Eos # (Auto) (0.04-0.36) K/mm3 Baso # (Auto) (0.01-0.08) K/mm3 Manual Slide Review PT (9.7-12.0) SECONDS INR Sodium 144 (136-145) mEq/L Potassium 4.3 (3.5-5.1) mEq/L Chloride 102 (98-107) mEq/L Carbon Dioxide 36 H (21-32) mEq/L Anion Gap 10.3 (5-15) BUN 14 (7-18) mg/dL Creatinine 0.7 (0.55-1.02) mg/dL Est Cr Clr Drug Dosing 94.54 mL/min Estimated GFR (MDRD) > 60 (>60) mL/min BUN/Creatinine Ratio 20.0 H (14-18) Glucose 99 (74-106) mg/dL Calcium 8.6 (8.5-10.1) mg/dL Total Bilirubin 0.6 (0.2-1.0) mg/dL AST 43 H (15-37) U/L ALT 30 (14-59) U/L Alkaline Phosphatase 97 (46-116) U/L Total Protein 6.9 (6.4-8.2) g/dl Albumin 2.6 L (3.4-5.0) g/dl Globulin 4.3 gm/dL Albumin/Globulin Ratio 0.6 L (1-2) Pete Results Last 24 Hours: Microbiology 12/08/20 16:50 Wound Culture - Preliminary Breast, Left Gram Positive Cocci Med Orders - Current: Current Medications Acetaminophen (Acetaminophen 325 Mg Tab) 650 mg PO Q6H PRN PRN Reason: Pain (Mild 1-3)/fever Last Admin: 12/09/20 18:38 Dose: 650 mg Documented by: Albuterol/Ipratropium (Albuterol/Ipratropium 3.0-0.5 Mg/3 Ml Neb Soln) 3 ml NEB Q4H PRN PRN Reason: Shortness Of Breath/wheezing Amlodipine Besylate (Amlodipine 10 Mg Tab) 10 mg PO DAILY [facility] Last Admin: 12/10/20 08:43 Dose: 10 mg Documented by: Furosemide (Furosemide 20 Mg/2 Ml Vial) 20 mg IVPUSH DAILY [facility] Last Admin: 12/10/20 08:43 Dose: 20 mg Documented by: Hydralazine HCl (Hydralazine 20 Mg/Ml Sdv) 10 mg IVPUSH Q4H PRN PRN Reason: Hypertension Promethazine HCl 12.5 mg/ (Sodium Chloride) 50.5 mls @ 100 mls/hr IV Q6H PRN PRN Reason: Nausea/Vomiting Lisinopril (Lisinopril 20 Mg Tab) 40 mg PO DAILY [facility] Last Admin: 12/10/20 08:43 Dose: 40 mg Documented by: Metoprolol Tartrate (Metoprolol Tartrate 25 Mg Tab) 12.5 mg PO Q12H [facility] Last Admin: 12/10/20 00:24 Dose: 12.5 mg Documented by: Multivitamins (Multivitamins,Therapeutic Tab) 1 each PO DAILY [facility] Last Admin: 12/10/20 08:43 Dose: 1 each Documented by: Mupirocin (Mupirocin Oint 22 Gm Tube) 1 gm TOP TID [facility] Last Admin: 12/09/20 20:23 Dose: 1 gm Documented by: Nystatin (Nystatin Topical Powder 15 Gm Bottle) 0 gm TOP BID [facility] Last Admin: 12/09/20 20:21 Dose: 1 applic Documented by: Pantoprazole Sodium (Pantoprazole 40 Mg Tab.Cr) 40 mg PO BID [facility] Last Admin: 12/10/20 08:43 Dose: 40 mg Documented by: Potassium Chloride (Potassium Chloride 20 Meq Tab.Er) 20 meq PO TID [facility] Last Admin: 12/10/20 08:43 Dose: 20 meq Documented by: Rosuvastatin Calcium (Rosuvastatin 10 Mg Tab) 20 mg PO DAILY [facility] Last Admin: 12/10/20 08:43 Dose: 20 mg Documented by: Sodium Chloride (Sodium Chloride 0.9% 10 Ml Syringe) 10 ml FLUSH ASDIRECTED PRN PRN Reason: Keep Vein Open Last Admin: 12/08/20 08:49 Dose: 10 ml Documented by: Warfarin Sodium (Pharmacy To Dose - Warfarin) 1 dose .XX ASDIRECTED PRN PRN Reason: RX TO DOSE WARFARIN Warfarin Sodium (Warfarin 5 Mg Tab) 10 mg PO QPM [facility] Stop: 12/10/20 18:01 Discontinued Medications Furosemide (Furosemide 40 Mg/4 Ml Vial) 40 mg IVPUSH NOW ONE Stop: 12/08/20 10:33 Last Admin: 12/08/20 11:18 Dose: 40 mg Documented by: Furosemide (Furosemide 20 Mg/2 Ml Vial) 20 mg IVPUSH BID [facility] Last Admin: 12/08/20 21:45 Dose: 20 mg Documented by: Furosemide (Furosemide 20 Mg/2 Ml Vial) 20 mg IVPUSH BIDDIURETIC [facility] Last Admin: 12/09/20 06:51 Dose: 20 mg Documented by: Furosemide (Furosemide 20 Mg/2 Ml Vial) 20 mg IVPUSH Q6H [facility] Stop: 12/09/20 18:01 Last Admin: 12/09/20 18:38 Dose: 20 mg Documented by: Morphine Sulfate (Morphine 2 Mg/Ml Syringe) 2 mg IVPUSH Q4H PRN PRN Reason: Pain (severe 7-10) Stop: 12/09/20 12:10 Pantoprazole Sodium (Pantoprazole 40 Mg Tab.Cr) 40 mg PO BEDTIME NATACHA Last Admin: 12/08/20 21:45 Dose: 40 mg Documented by: Pantoprazole Sodium (Pantoprazole 40 Mg Tab.Cr) 40 mg PO ACBREAKFAST NATACHA - Exam Quality Assessment: Supplemental Oxygen (1L), DVT Prophylaxis. No: Urine Catheter General: Alert, Oriented, Cooperative, No Acute Distress HEENT: Pupils Equal, Pupils Reactive, Mucous Membr. Moist/[place] Neck: Supple, Trachea Midline Lungs: Clear to Auscultation, Normal Respiratory Effort Cardiovascular: Regular Rate, Regular Rhythm, Other (dystant heart tones ) GI/Abdominal Exam: Normal Bowel Sounds, Soft, Non-Tender, No Distention (Female) Exam: Deferred Back Exam: Normal Inspection, Full Range of Motion Extremities: Normal Inspection, Normal Range of Motion, Non-Tender Skin: Warm, Dry, Intact, Rash (Under left breast ) Neurological: No New Focal Deficit Psy/Mental Status: Alert, Normal Affect - Patient Data Lab Results Last 24 hrs: Laboratory Results - last 24 hr 12/09/20 12/10/20 12/10/20 Range/Units 21:59 04:40 04:40 WBC 9.39 (3.98-10.04) K/mm3 RBC 4.78 (3.98-5.22) M/mm3 Hgb 11.6 11.8 (11.2-15.7) gm/dl Hct 42.0 42.9 (34.1-44.9) % MCV 89.7 (79.4-94.8) fl MCH 24.7 L (25.6-32.2) pg MCHC 27.5 L (32.2-35.5) g/dl RDW Std Deviation 56.1 H (36.4-46.3) fL Plt Count 300 (182-369) K/mm3 MPV 10.7 (9.4-12.3) fl Neut % (Auto) 77.1 H (34.0-71.1) % Lymph % (Auto) 14.7 L (19.3-51.7) % [place] % (Auto) 6.1 (4.7-12.5) % Eos % (Auto) 1.9 (0.7-5.8) Baso % (Auto) 0.1 (0.1-1.2) % Neut # (Auto) 7.24 H (1.56-6.13) K/mm3 Lymph # (Auto) 1.38 (1.18-3.74) K/mm3 [place] # (Auto) 0.57 H (0.24-0.36) K/mm3 Eos # (Auto) 0.18 (0.04-0.36) K/mm3 Baso # (Auto) 0.01 (0.01-0.08) K/mm3 Manual Slide Review Abnormal smear PT 26.5 H D (9.7-12.0) SECONDS INR 2.49 Sodium (136-145) mEq/L Potassium (3.5-5.1) mEq/L Chloride (98-107) mEq/L Carbon Dioxide (21-32) mEq/L Anion Gap (5-15) BUN (7-18) mg/dL Creatinine (0.55-1.02) mg/dL Est Cr Clr Drug Dosing mL/min Estimated GFR (MDRD) (>60) mL/min BUN/Creatinine Ratio (14-18) Glucose (74-106) mg/dL Calcium (8.5-10.1) mg/dL Total Bilirubin (0.2-1.0) mg/dL AST (15-37) U/L ALT (14-59) U/L Alkaline Phosphatase (46-116) U/L Total Protein (6.4-8.2) g/dl Albumin (3.4-5.0) g/dl Globulin gm/dL Albumin/Globulin Ratio (1-2) 12/10/20 Range/Units 04:40 WBC (3.98-10.04) K/mm3 RBC (3.98-5.22) M/mm3 Hgb (11.2-15.7) gm/dl Hct (34.1-44.9) % MCV (79.4-94.8) fl MCH (25.6-32.2) pg MCHC (32.2-35.5) g/dl RDW Std Deviation (36.4-46.3) fL Plt Count (182-369) K/mm3 MPV (9.4-12.3) fl Neut % (Auto) (34.0-71.1) % Lymph % (Auto) (19.3-51.7) % [place] % (Auto) (4.7-12.5) % Eos % (Auto) (0.7-5.8) Baso % (Auto) (0.1-1.2) % Neut # (Auto) (1.56-6.13) K/mm3 Lymph # (Auto) (1.18-3.74) K/mm3 [place] # (Auto) (0.24-0.36) K/mm3 Eos # (Auto) (0.04-0.36) K/mm3 Baso # (Auto) (0.01-0.08) K/mm3 Manual Slide Review PT (9.7-12.0) SECONDS INR Sodium 144 (136-145) mEq/L Potassium 4.3 (3.5-5.1) mEq/L Chloride 102 (98-107) mEq/L Carbon Dioxide 36 H (21-32) mEq/L Anion Gap 10.3 (5-15) BUN 14 (7-18) mg/dL Creatinine 0.7 (0.55-1.02) mg/dL Est Cr Clr Drug Dosing 94.54 mL/min Estimated GFR (MDRD) > 60 (>60) mL/min BUN/Creatinine Ratio 20.0 H (14-18) Glucose 99 (74-106) mg/dL Calcium 8.6 (8.5-10.1) mg/dL Total Bilirubin 0.6 (0.2-1.0) mg/dL AST 43 H (15-37) U/L ALT 30 (14-59) U/L Alkaline Phosphatase 97 (46-116) U/L Total Protein 6.9 (6.4-8.2) g/dl Albumin 2.6 L (3.4-5.0) g/dl Globulin 4.3 gm/dL Albumin/Globulin Ratio 0.6 L (1-2) Result Diagrams: 12/10/20 04:40 12/10/20 04:40 Pete Results Last 24 hrs: Microbiology 12/08/20 16:50 Wound Culture - Preliminary Breast, Left Gram Positive Cocci Sepsis Event Note - Evaluation Sepsis Screening Result: No Definite Risk - Focused Exam Vital Signs: Vital Signs Temp Pulse Resp BP Pulse Ox Pulse Ox 12/10/20 08:46 96 12/10/20 08:43 116/62 12/10/20 06:03 98.8 F 89 22 H 117/68 92 L 12/10/20 05:10 92 L 12/10/20 02:51 78 91 L 12/10/20 00:46 94 L 12/10/20 00:24 104 H 112/55 L 12/10/20 00:23 104 H 92 L 12/10/20 00:21 95 16 85 L 12/10/20 00:17 98.6 F 105 H 112/55 L 73 L - Problem List & Annotations (1) HTN (hypertension) SNOMED Code(s): 27584185 Code(s): I10 - ESSENTIAL (PRIMARY) HYPERTENSION Status: Chronic Priority: Medium Current Visit: No Qualifiers: Hypertension type: unspecified Qualified Code(s): I10 - Essential (primary) hypertension (2) CHF exacerbation SNOMED Code(s): 801881700, 68618158924681 Code(s): I50.9 - HEART FAILURE, UNSPECIFIED Status: Acute Priority: High Current Visit: Yes Qualifiers: Heart failure type: diastolic Qualified Code(s): I50.33 - Acute on chronic diastolic (congestive) heart failure (3) GI bleed SNOMED Code(s): 79404542 Code(s): K92.2 - GASTROINTESTINAL HEMORRHAGE, UNSPECIFIED Status: Resolved Priority: High Current Visit: Yes Qualifiers: GI bleed type/associated pathology: melena Qualified Code(s): K92.1 - Melena (4) Hypoxia SNOMED Code(s): 911512426 Code(s): R09.02 - HYPOXEMIA Status: Acute Priority: High Current Visit: Yes (5) Morbid obesity with BMI of 70 and over, adult SNOMED Code(s): 810404545 Code(s): E66.01 - MORBID (SEVERE) OBESITY DUE TO EXCESS CALORIES; Z68.45 - BODY MASS INDEX [BMI] 70 OR GREATER, ADULT Status: Chronic Priority: High Current Visit: Yes (6) Skin rash SNOMED Code(s): 907634829, 906507133 Code(s): R21 - RASH AND OTHER NONSPECIFIC SKIN ERUPTION Status: Acute Priority: High Current Visit: Yes (7) Staph skin infection SNOMED Code(s): 987945331 Code(s): L08.9 - LOCAL INFECTION OF THE SKIN AND SUBCUTANEOUS TISSUE, UNSP; B95.8 - UNSP STAPHYLOCOCCUS THE CAUSE OF DISEASES CLASSD [id number] Status: Acute Priority: High Current Visit: Yes (8) Supratherapeutic INR SNOMED Code(s): 953603083 Code(s): R79.1 - ABNORMAL COAGULATION PROFILE Status: Resolved Priority: High Current Visit: Yes (9) Chronic anticoagulation SNOMED Code(s): 803835006 Code(s): Z79.01 - FDC (CURRENT) USE OF ANTICOAGULANTS Status: Chronic Priority: Medium Current Visit: Yes (10) History of pulmonary embolism SNOMED Code(s): 561549578 Code(s): Z86.711 - PERSONAL HISTORY OF PULMONARY EMBOLISM Status: Chronic Priority: Medium Current Visit: Yes - Problem List Review Problem List Initiated/Reviewed/Updated: Yes - Plan Plan:: Patient is a 50-year-old female with a history of CHF, hypertension, history of PE on Coumadin and morbid obesity who presented to the ER due to shortness of breath and bloody diarrhea. Assessment and plan: 1. Acute hypoxic and hypercapnic respiratory failure Could be due to CHF exacerbation and obesity hypoventilation syndrome D-dimer is negative Pulse ox Oxygen therapy to keep oxygen saturation to greater than 92% Sleep study as an outpatient 2. Diastolic CHF exacerbation BNP 240. 20 pound weight loss CXR - mild cardiomegaly Echocardiogram - Suboptimal due to patient body habitus. Suspect normal systolic function. Consider repeat echo with contrast. Lasix to 40 mg was given in the ER Lasix 20 mg IV 3 times daily 16 pound weight loss Continue lisinopril 40 mg daily Intake and output Daily weight 20mg IVP lasix daily now 3. GI bleeding, Appears to have resolved Hemoglobin 12.5-->11.6-->11.8 BUN/creatinine ratio 11.4-->14.3-->20.0 Pantoprazole 40 mg BID Patient is too heavy to be able to do endoscopy at our facility Likely 2/2 supratherapeutic INR as below 4. Morbid obesity, BMI 70.5 on admission, currently 59 Dietitian consult Follow with PCP 5. HTN Continue home amlodipine 10 mg daily and lisinopril 40 mg daily. Added metoprolol 12.5 mg twice daily Hydralazine as needed 6. Hx of PE on warfarin 7. Supratherapeutic INR, 6.91-->4.7-->2.49 Resume warfarin No current signs of bleeding bleeding Repeat INR daily Pharmacy to dose warfarin 8. Rash under left breast Staff aureus growing from culture result Start Bactroban 3 times daily Monitor 9. DVT prophylaxis: Supratherapeutic INR, patient is fully anticoagulated for both DVT treatment and prophylaxis 10. CODE STATUS: Full
[2020-12-10] MEDS: Acetaminophen 325 MG Tab PO PRN (09:27)
[2020-12-10] MEDS: Mupirocin Oint 22 GM Tube TOP SCH ×3 (13:56→21:11)
[2020-12-10] MEDS: Nystatin Topical Powder 15 GM Bottle TOP SCH ×2 (13:56→21:10)
[2020-12-10] MEDS ORDERED: Warfarin 5 MG Tab PO SCH (18:00)
[2020-12-11] MEDS: Acetaminophen 325 MG Tab PO PRN (04:44)
[2020-12-11] MEDS: Rosuvastatin 10 MG Tab PO SCH (08:35)
[2020-12-11] MEDS: Potassium Chloride 20 MEQ Tab.ER PO SCH (08:35)
[2020-12-11] MEDS: Multivitamins,Therapeutic Tab PO SCH (08:35)
[2020-12-11] MEDS: amLODIPine 10 MG Tab PO SCH (08:36)
[2020-12-11] MEDS: Pantoprazole 40 MG Tab.CR PO SCH (08:36)
[2020-12-11] MEDS: Lisinopril 20 MG Tab PO SCH (08:41)
[2020-12-11] MEDS: Metoprolol Tartrate 25 MG Tab PO SCH (08:41)
[2020-12-11] MEDS: Furosemide 20 MG/2 ML VIAL IVPUSH SCH (08:42)
[2020-12-11 08:43] VITALS: BP 113/61; PULSE 93
[2020-12-11] MEDS: Nystatin Topical Powder 15 GM Bottle TOP SCH (08:46)
[2020-12-11] MEDS: Mupirocin Oint 22 GM Tube TOP SCH (08:46)
[2020-12-11] MEDS ORDERED: Doxycycline 100 MG Cap PO SCH (09:41)
--- NOTE | 2020-12-11 10:02 | PCM.DCSUM1 ---
Discharge Summary - Hospital Course HPI Initial Comments: Patient is a 50-year-old female with a history of CHF, hypertension, history of PE on Coumadin and morbid obesity who presented to the ER due to shortness of breath and bloody diarrhea. As per patient, she has been having diarrhea with bright red and black stool for 4 to 5 days. She has bowel movements about 3 times a day associated with nausea. But she denies abdominal pain and has not vomited yet. She has been having shortness of breath over the past 4 days associated with mild dry cough and mild headache. Otherwise she denies chest pain, fever, chills, runny nose, or dysuria. In the ER, she was found to to have low oxygen desaturation. Hemoglobin 12.5,INR 6.91, D-dimer less than 0.19; ABG showed PCO2 50.5 and PO2 48. Chest x-ray showed mild cardiomegaly and BNP 240. Patient admits that she has not taken her Lasix 40 mg twice daily for 1 week due to both knee pain. Diagnosis: Stroke: No - Discharge Data Discharge Date: 12/11/20 (Admit date: 12/08/20) Discharge Disposition: Home, Self-Care 01 Condition: Good - Referral to Home Health Primary Care Physician: MADAY Iniguez - Discharge Diagnosis/Problem(s) (1) HTN (hypertension) SNOMED Code(s): 74563715 ICD Code: I10 - ESSENTIAL (PRIMARY) HYPERTENSION Status: Chronic Priority: Medium Current Visit: No Qualifiers: Hypertension type: unspecified Qualified Code(s): I10 - Essential (primary) hypertension (2) CHF exacerbation SNOMED Code(s): 362153443, 74938459203041 ICD Code: I50.9 - HEART FAILURE, UNSPECIFIED Status: Acute Priority: High Current Visit: Yes Qualifiers: Heart failure type: diastolic Qualified Code(s): I50.33 - Acute on chronic diastolic (congestive) heart failure (3) GI bleed SNOMED Code(s): 49978016 ICD Code: K92.2 - GASTROINTESTINAL HEMORRHAGE, UNSPECIFIED Status: Resolved Priority: High Current Visit: Yes Qualifiers: GI bleed type/associated pathology: melena Qualified Code(s): K92.1 - Melena (4) Hypoxia SNOMED Code(s): 673384485 ICD Code: R09.02 - HYPOXEMIA Status: Acute Priority: High Current Visit: Yes (5) Morbid obesity with BMI of 70 and over, adult SNOMED Code(s): 748602162 ICD Code: E66.01 - MORBID (SEVERE) OBESITY DUE TO EXCESS CALORIES; Z68.45 - BODY MASS INDEX [BMI] 70 OR GREATER, ADULT Status: Chronic Priority: High Current Visit: Yes (6) Skin rash SNOMED Code(s): 413168644, 930990954 ICD Code: R21 - RASH AND OTHER NONSPECIFIC SKIN ERUPTION Status: Acute Priority: High Current Visit: Yes (7) Staph skin infection SNOMED Code(s): 802179095 ICD Code: L08.9 - LOCAL INFECTION OF THE SKIN AND SUBCUTANEOUS TISSUE, UNSP; B95.8 - UNSP STAPHYLOCOCCUS THE CAUSE OF DISEASES CLASSD ELSWHR Status: Acute Priority: High Current Visit: Yes (8) Supratherapeutic INR SNOMED Code(s): 382780771 ICD Code: R79.1 - ABNORMAL COAGULATION PROFILE Status: Resolved Priority: High Current Visit: Yes (9) Chronic anticoagulation SNOMED Code(s): 952787801 ICD Code: Z79.01 - TAX ANALYST (CURRENT) USE OF ANTICOAGULANTS Status: Chronic Priority: Medium Current Visit: Yes (10) History of pulmonary embolism SNOMED Code(s): 966348872 ICD Code: Z86.711 - PERSONAL HISTORY OF PULMONARY EMBOLISM Status: Chronic Priority: Medium Current Visit: Yes - Patient Summary/Data Consults: Consultations 12/08/20 12:13 Consult to Manager Rental [CONS] Routine Labs Pending at D/C: None Re-check of INR ordered for 12/15/20 with results to PCP, Susan Yi PA-C. Recommended Follow-up Testing/Procedures: Follow-up with PCP within 5 to 7 days of discharge, sooner if needed -Recommend recheck CBC, CMP, and magnesium at that visit -Patient instructed to weigh herself daily -review weight journal -Recommend outpatient sleep study Hospital Course: This is a 50-year-old morbidly obese female who presents to ED on 12/08/2020 for concerns over a GI bleed, headache, and swelling. On admission patient was noted to have a BMI of 70.5. She was found to be hypoxic and oxygen was a appl ied. She was given IV push Lasix and responded very well having a rapid 20 pound weight loss. Per the patient she had not been taking her Lasix as prescribed because she was having knee pain. Chest x-ray showed mild cardiomegaly and echocardiogram was obtained however due to the patient's body habitus it was noted to be suboptimal. Suspected normal systolic function. Carpet Technician recommended repeat outpatient echo with contrast. She is placed on pantoprazole for her GI bleed and hemoglobin did improve. Her INR was noted to be 6.91 on admission and this likely contributed to her GI bleeding. Warfarin was held and her INR did respond appropriately. General surgery, Dr. Forrest was contacted and did note that the patient would not qualify for an EGD here due to her body habitus. While here her BMI did decrease to 59. Our dietitian did see her and advised her on weight loss and CHF diet. Her home medications were continued and metoprolol 12.5 mg twice daily was added due to patient's hypertension with good results. Prior to discharge there was no blood noted in her stool. Warfarin was resumed at home dosing and she will not be bridged. Order was placed for repeat INR on 12/15/2020 with results to primary care provider. Unfortunately we were unable to wean her from oxygen prior to discharge and she did qualify for 1 L at rest and 2 L with activity. She does reportedly have a home concentrator and portable concentrator already. Patient was noted to have a draining wound under her left breast and redness to her right dorsal aspect of her foot. Patient was receiving mupirocin gel to breast wound however we will switch her prior to discharge to doxycycline 100 mg twice daily to cover her suspected developing cellulitis of her right foot. Recommend patient follow-up with PCP within 5 to 7 days of discharge. She may benefit from a longer course of doxycycline. Recommend patient obtain outpatient sleep study as it is suspected she has ALONSO. Recommend repeat CBC, CMP, and magnesium at follow-up visit. Recommend continued monitoring of patient's INR. Patient was instructed on importance of taking her medications as prescribed. She was instructed to take her weight daily and recorded in a journal. She was told to contact her primary care provider if she notices a 3 pound weight gain in a day or a 5 pound weight gain in a week. She was directed to continue to utilize her incentive spirometer for 1-2 more weeks or until symptoms resolve. Prescriptions were sent for C cycling and metoprolol has mentioned prior. All other home medications were continued. Patient discharged home today. - Patient Instructions Diet: Heart Healthy Diet, Low Sodium, Weight Loss Diet Activity: As Tolerated Showering/Bathing: May Shower Notify Provider of: Fever, Increased Pain, Nausea and/or Vomiting Other/Special Instructions: Follow-up with primary care provider within 5-7 days of discharge, sooner if needed. Recommend outpatient sleep study. Your primary care provider can assist you with this. Resume home medications as directed. Take these as prescribed. Take your weight daily and record this in a journal. Bring this with to all medical appointments. Contact your primary care provider if you note a 3lb weight gain in one day or a 5lb weight gain in one week. Wear your oxygen as directed. 1L with rest and 2L with activity. You were prescribed an antibiotic for your skin infection. Take this as prescribed until complete. Recheck your INR on 12/15/20. An order was placed for this. Continue to utilize your incentive spirometer (Clear/blue device you inhale through) for 1-2 more weeks or until symptoms resolve. Should symptoms return or worsen contact your primary care provider or return to the Emergency Department. - Discharge Plan *PRESCRIPTION DRUG MONITORING PROGRAM REVIEWED*: No *COPY OF PRESCRIPTION DRUG MONITORING REPORT IN PATIENT BRUNILDA: No Prescriptions/Med Rec: Metoprolol Tartrate [Lopressor] 12.5 mg PO BID #10 tablet Doxycycline [Vibra-Tabs] 100 mg PO Q12HR #13 tab Home Medications: Home Meds Lisinopril 40 mg PO DAILY 11/25/18 [History] Furosemide 40 mg PO BID 02/15/19 [History] Multivitamin 1 tab PO DAILY 01/09/20 [History] Potassium Chloride [Klor-Con M20] 20 meq PO TID 01/09/20 [History] Rosuvastatin [Crestor] 20 mg PO DAILY 01/09/20 [History] Warfarin Sodium [Jantoven] 5 mg PO MOTH 07/01/20 [History] Warfarin Sodium [Jantoven] 10 mg PO SUTUWEFRSA 07/01/20 [History] amLODIPine [Norvasc] 10 mg PO DAILY 12/08/20 [History] hydrOXYzine HCL [Hydroxyzine HCl] 1 - 2 tab PO QID PRN 03/29/21 [History] Doxycycline [Vibra-Tabs] 100 mg PO Q12HR #13 tab 12/11/20 [Rx] Metoprolol Tartrate [Lopressor] 12.5 mg PO BID #10 tablet 12/11/20 [Rx] Oxygen Therapy Mode: Nasal Cannula Oxygen Flow Rate (L/min): 1 (1L with rest and 2L with activity) Patient Handouts: Gastrointestinal Bleeding, Heart Failure Action Plan, Heart Failure Exacerbation, Heart Failure and Exercise, Heart Failure Eating Plan Referrals: Susan Yi PA-C [Primary Care Provider] - 12/18/20 10:30 am (Hospital follow-up appointment. Please check in by 10:15 am.) - Discharge Summary/Plan Comment DC Time >30 min.: Yes (45 mins ) - General Info Date of Service: 12/11/20 Admission Dx/Problem (Free Text: Admission Diagnosis/Problem Admission Diagnosis/Problem CHF, Congestive heart failure Functional Status: Reports: Pain Controlled, Tolerating Diet, Ambulating, Urinating, Incentive Spirometry. Denies: New Symptoms - Review of Systems General: Reports: No Symptoms. Denies: Fever, Weakness, Fatigue, Malaise, Chills HEENT: Reports: No Symptoms. Denies: Headaches, Sore Throat Pulmonary: Reports: No Symptoms, Shortness of Breath. Denies: Pleuritic Chest Pain, Cough, Sputum, Wheezing Cardiovascular: Reports: Dyspnea on Exertion, Edema. Denies: Chest Pain, Palpitations Gastrointestinal: Reports: No Symptoms. Denies: Abdominal Pain, Constipation, Diarrhea, Nausea, Vomiting Genitourinary: Reports: No Symptoms. Denies: Pain Musculoskeletal: Reports: No Symptoms Skin: Reports: No Symptoms. Denies: Cyanosis Neurological: Reports: No Symptoms. Denies: Confusion, Difficulty Walking, Weakness, Gait Disturbance Psychiatric: Reports: No Symptoms - Patient Data Vitals - Most Recent: Last Vital Signs Temp 98.4 F 12/11/20 07:27 Pulse 93 12/11/20 08:41 Resp 16 12/11/20 07:27 BP 113/61 12/11/20 08:41 Pulse Ox 81 L 12/11/20 09:13 Weight - Most Recent: 376 lb 12.8 oz I&O - Last 24 hours: Intake & Output 12/10/20 12/11/20 12/11/20 22:59 06:59 14:59 Intake Total 1440 940 Output Total 8700 1999 Balance -410 -1060 Lab Results - Last 24 hrs: Laboratory Results - last 24 hr 12/11/20 12/11/20 12/11/20 Range/Units 04:46 04:46 04:46 WBC 8.70 (3.98-10.04) K/mm3 RBC 5.07 (3.98-5.22) M/mm3 Hgb 12.6 (11.2-15.7) gm/dl Hct 44.7 (34.1-44.9) % MCV 88.2 (79.4-94.8) fl MCH 24.9 L (25.6-32.2) pg MCHC 28.2 L (32.2-35.5) g/dl RDW Std Deviation 55.4 H (36.4-46.3) fL Plt Count 261 (182-369) K/mm3 MPV 11.0 (9.4-12.3) fl Neut % (Auto) 74.8 H (34.0-71.1) % Lymph % (Auto) 16.4 L (19.3-51.7) % [place] % (Auto) 6.4 (4.7-12.5) % Eos % (Auto) 2.2 (0.7-5.8) Baso % (Auto) 0.1 (0.1-1.2) % Neut # (Auto) 6.50 H (1.56-6.13) K/mm3 Lymph # (Auto) 1.43 (1.18-3.74) K/mm3 [place] # (Auto) 0.56 H (0.24-0.36) K/mm3 Eos # (Auto) 0.19 (0.04-0.36) K/mm3 Baso # (Auto) 0.01 (0.01-0.08) K/mm3 Manual Slide Review Abnormal smear PT 18.6 H (9.7-12.0) SECONDS INR 1.76 Sodium 143 (136-145) mEq/L Potassium 4.7 (3.5-5.1) mEq/L Chloride 103 (98-107) mEq/L Carbon Dioxide 34 H (21-32) mEq/L Anion Gap 10.7 (5-15) BUN 11 (7-18) mg/dL Creatinine 0.8 (0.55-1.02) mg/dL Est Cr Clr Drug Dosing 82.72 mL/min Estimated GFR (MDRD) > 60 (>60) mL/min BUN/Creatinine Ratio 13.8 L (14-18) Glucose 112 H (74-106) mg/dL Calcium 9.0 (8.5-10.1) mg/dL Total Bilirubin 0.6 (0.2-1.0) mg/dL AST 60 H (15-37) U/L ALT 36 (14-59) U/L Alkaline Phosphatase 103 (46-116) U/L Total Protein 7.5 (6.4-8.2) g/dl Albumin 2.9 L (3.4-5.0) g/dl Globulin 4.6 gm/dL Albumin/Globulin Ratio 0.6 L (1-2) POORNIMA Results - Last 24 hrs: Microbiology 12/08/20 16:50 Wound Culture - Final Breast, Left Staphylococcus Aureus Med Orders - Current: Current Medications Acetaminophen (Acetaminophen 325 Mg Tab) 650 mg PO Q6H PRN PRN Reason: Pain (Mild 1-3)/fever Last Admin: 12/11/20 04:44 Dose: 650 mg Documented by: Albuterol/Ipratropium (Albuterol/Ipratropium 3.0-0.5 Mg/3 Ml Neb Soln) 3 ml NEB Q4H PRN PRN Reason: Shortness Of Breath/wheezing Amlodipine Besylate (Amlodipine 10 Mg Tab) 10 mg PO DAILY [facility] Last Admin: 12/11/20 08:36 Dose: 10 mg Documented by: Doxycycline Hyclate (Doxycycline 100 Mg Cap) 100 mg PO Q12HR [facility] Furosemide (Furosemide 20 Mg/2 Ml Vial) 20 mg IVPUSH DAILY [facility] Last Admin: 12/11/20 08:42 Dose: 20 mg Documented by: Hydralazine HCl (Hydralazine 20 Mg/Ml Sdv) 10 mg IVPUSH Q4H PRN PRN Reason: Hypertension Promethazine HCl 12.5 mg/ (Sodium Chloride) 50.5 mls @ 100 mls/hr IV Q6H PRN PRN Reason: Nausea/Vomiting Lisinopril (Lisinopril 20 Mg Tab) 40 mg PO DAILY [facility] Last Admin: 12/11/20 08:41 Dose: 40 mg Documented by: Metoprolol Tartrate (Metoprolol Tartrate 25 Mg Tab) 12.5 mg PO BID [facility] Last Admin: 12/11/20 08:41 Dose: 12.5 mg Documented by: Multivitamins (Multivitamins,Therapeutic Tab) 1 each PO DAILY [facility] Last Admin: 12/11/20 08:35 Dose: 1 each Documented by: Mupirocin (Mupirocin Oint 22 Gm Tube) 1 gm TOP TID [facility] Last Admin: 12/11/20 08:46 Dose: 1 gm Documented by: Nystatin (Nystatin Topical Powder 15 Gm Bottle) 0 gm TOP BID [facility] Last Admin: 12/11/20 08:46 Dose: 1 applic Documented by: Pantoprazole Sodium (Pantoprazole 40 Mg Tab.Cr) 40 mg PO BID [facility] Last Admin: 12/11/20 08:36 Dose: 40 mg Documented by: Potassium Chloride (Potassium Chloride 20 Meq Tab.Er) 20 meq PO TID [facility] Last Admin: 12/11/20 08:35 Dose: 20 meq Documented by: Rosuvastatin Calcium (Rosuvastatin 10 Mg Tab) 20 mg PO DAILY [facility] Last Admin: 12/11/20 08:35 Dose: 20 mg Documented by: Sodium Chloride (Sodium Chloride 0.9% 10 Ml Syringe) 10 ml FLUSH ASDIRECTED PRN PRN Reason: Keep Vein Open Last Admin: 12/08/20 08:49 Dose: 10 ml Documented by: Warfarin Sodium (Pharmacy To Dose - Warfarin) 1 dose .XX ASDIRECTED PRN PRN Reason: RX TO DOSE WARFARIN Warfarin Sodium (Warfarin 5 Mg Tab) 10 mg PO QPM [facility] Stop: 12/11/20 18:01 Discontinued Medications Furosemide (Furosemide 40 Mg/4 Ml Vial) 40 mg IVPUSH NOW ONE Stop: 12/08/20 10:33 Last Admin: 12/08/20 11:18 Dose: 40 mg Documented by: Furosemide (Furosemide 20 Mg/2 Ml Vial) 20 mg IVPUSH BID [facility] Last Admin: 12/08/20 21:45 Dose: 20 mg Documented by: Furosemide (Furosemide 20 Mg/2 Ml Vial) 20 mg IVPUSH BIDDIURETIC [facility] Last Admin: 12/09/20 06:51 Dose: 20 mg Documented by: Furosemide (Furosemide 20 Mg/2 Ml Vial) 20 mg IVPUSH Q6H [facility] Stop: 12/09/20 18:01 Last Admin: 12/09/20 18:38 Dose: 20 mg Documented by: Metoprolol Tartrate (Metoprolol Tartrate 25 Mg Tab) 12.5 mg PO Q12H [facility] Last Admin: 12/10/20 13:55 Dose: 12.5 mg Documented by: Morphine Sulfate (Morphine 2 Mg/Ml Syringe) 2 mg IVPUSH Q4H PRN PRN Reason: Pain (severe 7-10) Stop: 12/09/20 12:10 Pantoprazole Sodium (Pantoprazole 40 Mg Tab.Cr) 40 mg PO BEDTIME [facility] Last Admin: 12/08/20 21:45 Dose: 40 mg Documented by: Pantoprazole Sodium (Pantoprazole 40 Mg Tab.Cr) 40 mg PO ACBREAKFAST [facility] Warfarin Sodium (Warfarin 5 Mg Tab) 10 mg PO QPM [facility] Stop: 12/10/20 18:01 Last Admin: 12/10/20 17:57 Dose: 10 mg Documented by: - Exam Quality Assessment: Reports: Supplemental Oxygen (1L ), DVT Prophylaxis. Denies: Urine Catheter General: Reports: Alert, Oriented, Cooperative, No Acute Distress HEENT: Reports: Pupils Equal, Pupils Reactive, Mucous Membr. Moist/[place] Neck: Reports: Supple, Trachea Midline Lungs: Reports: Clear to Auscultation, Normal Respiratory Effort Cardiovascular: Reports: Regular Rate, Regular Rhythm, Other (Distant heart tones ) GI/Abdominal Exam: Normal Bowel Sounds, Soft, Non-Tender, No Distention (Female) Exam: Deferred Rectal (Female) Exam: Deferred Back Exam: Reports: Normal Inspection, Full Range of Motion Extremities: Normal Range of Motion, Pedal Edema (2+), Redness (dorsal aspect of right foot). No: Leg Pain, Limited Range of Motion, Increased Warmth Skin: Reports: Warm, Dry, Intact Wound/Incisions: Reports: Erythema Improving, Other (Ulceration under left breast. - improving ) Neurological: Reports: No New Focal Deficit Psy/Mental Status: Reports: Alert, Normal Affect, Normal Mood
[2020-12-11] MEDS ORDERED: Warfarin 5 MG Tab PO SCH (18:00)
== END 2020-12-11 11:37 | disposition home or self-care (01) | DRG 291 ==
LOC: JD.ED 08:00 → JD.MS 11:03
PROVIDERS: ADMIT Internal Medicine; ATTEND Internal Medicine
DX: I11.0 Hypertensive heart disease with heart failure (principal); J96.01 Acute respiratory failure with hypoxia; J96.02 Acute respiratory failure with hypercapnia; Z68.45 Body mass index [BMI] 70 or greater, adult; K92.1 Melena; D68.8 Other specified coagulation defects; I50.33 Acute on chronic diastolic (congestive) heart failure; E66.01 Morbid (severe) obesity due to excess calories; R21 Rash and other nonspecific skin eruption; L08.9 Local infection of the skin and subcutaneous tissue, unspecified; Z20.822 Contact with and (suspected) exposure to COVID-19; Z79.01 Long term (current) use of anticoagulants; Z86.711 Personal history of pulmonary embolism; Z79.899 Other long term (current) drug therapy; Z91.041 Radiographic dye allergy status
CPT/HCPCS: 36415; 36600; 71045; 71045-26; 80053; 81025; 82803; 83735; 83880; 84484; 85014; 85018; 85025; 85379; 85610; 87070; 87077; 87186; 87641; 93005; 93010; 93306; 94761; 94762; 99223; 99233; 99239; 99285; 99285-25; A9270-GY; J1940; U0002

== ENCOUNTER 2021-01-08 07:30 | Emergency (ER) | payer MEDICAID ==
[2021-01-08 07:47] VITALS: BP 185/95; PULSE 113
--- NOTE | 2021-01-08 08:05 | EDM.PDOC ---
ED HPI GENERAL MEDICAL PROBLEM - General Chief Complaint: Abdominal Pain Stated Complaint: ABDOMINAL PAIN Time Seen by Provider: 01/08/21 07:56 Source of Information: Reports: Patient History Limitations: Reports: No Limitations - History of Present Illness INITIAL COMMENTS - FREE TEXT/NARRATIVE: 50-year-old female presents to the ED with acute onset of left lower quadrant abdominal pain about 0300 hrs. this morning associate with nausea without vomiting. Pain was quite intense for period of time but now has let up a good deal. No further nausea. She has no history of renal stones but her sister does. She did notice any darkness of her urine or blood in the urine. Unfortunately she just voided before coming into the ED. She has had major abdominal surgery in the past for a bowel obstruction with severe scarring right of the umbilicus. Wound had to heal by secondary intention. Bowels have been working normally. Onset: Today, Sudden Onset Date: 01/08/21 Onset Time: 03:00 Duration: Hour(s):, Improving Location: Reports: Abdomen (Left lower quadrant/pelvic) Quality: Reports: Other ( pain. Pain was sharp stabbing and strongly colicky.) Severity: Moderate Improves with: Reports: None Worsens with: Reports: None Context: Reports: Other (Spontaneous occurrence). Denies: Activity, Exercise, Lifting, Sick Contact, Trauma Associated Symptoms: Reports: Nausea/Vomiting (She will onset of nausea without vomiting.) Treatments HAND GLASS CUTTER: Reports: Other (see below) (None.) Left Lower Abdomen Pain Score (Numeric/FACES): 6 - Related Data Allergies Allergy/AdvReac Type Severity Reaction Status Date / Time Iodinated Contrast Media Allergy Intermediate Hives Verified 01/08/21 07:47 Home Meds: Home Meds Lisinopril 40 mg PO DAILY 11/25/18 [History] Furosemide 40 mg PO BID 02/15/19 [History] Multivitamin 1 tab PO DAILY 01/09/20 [History] Potassium Chloride [Klor-Con M20] 20 meq PO TID 01/09/20 [History] Rosuvastatin [Crestor] 20 mg PO DAILY 01/09/20 [History] Warfarin Sodium [Jantoven] 5 mg PO MOTH 07/01/20 [History] Warfarin Sodium [Jantoven] 10 mg PO [id number] 07/01/20 [History] amLODIPine [Norvasc] 10 mg PO DAILY 12/08/20 [History] hydrOXYzine HCL [Hydroxyzine HCl] 1 - 2 tab PO QID PRN 12/08/20 [History] Past Medical History - Past Health History Medical/Surgical History: Denies Medical/Surgical History HEENT History: Reports: None Cardiovascular History: Reports: Heart Failure, High Cholesterol, Hypertension Other Cardiovascular History: pt states she had a murmur as a baby which resolved. Pt has current elevated Blood Pressure and edema Respiratory History: Reports: PE Gastrointestinal History: Reports: Bowel Obstruction Genitourinary History: Reports: None MANAGER DELI History: Reports: Musculoskeletal History: Reports: None Neurological History: Reports: None Psychiatric History: Reports: None Endocrine/Metabolic History: Reports: Obesity/BMI 30+ Hematologic History: Reports: Anticoagulation Therapy Other Hematologic History: with colon surgery Immunologic History: Reports: None Oncologic (Cancer) History: Reports: None Other Dermatologic History: rash on legs bilateral and lower abdomen. She states she scratches at night - Infectious Disease History Infectious Disease History: Reports: None - Past Surgical History Head Surgeries/Procedures: Reports: None GI Surgical History: Reports: Appendectomy, Small Bowel Social & Family History - Family History Family Medical History: No Pertinent Family History HEENT: Reports: None GI: Reports: None Immunologic: Reports: None Oncologic: Reports: Lung, Other (See Below) Other Oncologic Family History: mother - Tobacco Use Tobacco Use Status *Q: Never Tobacco User - Caffeine Use Caffeine Use: Reports: Soda - Recreational Drug Use Recreational Drug Use: No - Living Situation & Occupation Living situation: Reports: Single Occupation: Unemployed ED [employer] [facility] - Review of Systems Review Of Systems: See Below Constitutional: Reports: Fatigue (Chronically.). Denies: Fever, Chills, Malaise, Weakness HEENT: Reports: No Symptoms Respiratory: Reports: Shortness of Breath Cardiovascular: Reports: Blood Pressure Problem Endocrine: Reports: Fatigue GI/Abdominal: Reports: Abdominal Pain (Left lower quadrant\pelvic pain), Nausea. Denies: Constipation ( which is gradually eased up since onset at 0300 hrs. this morning.), Diarrhea, Decreased Appetite, Difficulty Swallowing, Distension, Flatus, Hematemesis, Hematochezia, Melena, Mucous in Stool, Stool Incontinence, Vomiting, Other (Initial onset of nausea which is now improved.) : Reports: Frequency. Denies: No Symptoms, Discharge, Dysuria, Flank Pain, Hematuria, Incontinence, Irregular Menses, Pain, Urgency Musculoskeletal: Reports: Joint Pain (She is currently in a wheelchair due to severe pain in her left knee.) Skin: Reports: Bruising (Bruises easily as she is on Coumadin.) Neurological: Reports: No Symptoms Psychiatric: Reports: No Symptoms Hematologic/Lymphatic: Reports: No Symptoms Immunologic: Reports: No Symptoms ED EXAM, RENAL/ - Physical Exam Exam: See Below Exam Limited By: No Limitations General Appearance: Alert, WD/WN, No Apparent Distress, Other (Temperature is 36.5 degrees. Heart rate was 113. Respiratory is 18 with O2 sats of 96% on room air BP 185/95.) Respiratory/Chest: No Respiratory Distress, No Accessory Muscle Use, Decreased Breath Sounds (Air entry is decreased to both posterior lung gonzales by 25% due to the patient's size.) Cardiovascular: No Murmur, No Rub. No: Normal Peripheral Pulses (Pulses in her feet are obscured due to edema.) GI/Abdominal: Normal Bowel Sounds, Non-Tender, Tender, Other (Abdomen is firm and morbidly obese. Abdominal girth limits ability to palpate any solid organs. There is a large surgical wound to the right of the umbilicus in the vertical position. Apparently she was opened up for a bowel obstruction many years ago. The wound dehisced and had to heal by secon). No: Distended Extremities: Pedal Edema Neurological: Alert, Oriented (3+ pitting edema bilaterally.), CN II-XII Intact, Normal Cognition Psychiatric: Normal Affect, Normal Mood Skin Exam: Warm, Dry, Intact, Normal Color, No Rash Course - Vital Signs Last Recorded V/S: Last Vital Signs Temp 36.5 C 01/08/21 07:42 Pulse 113 H 01/08/21 07:42 Resp 18 01/08/21 07:42 BP 185/95 H 01/08/21 07:42 Pulse Ox 96 01/08/21 07:42 - Orders/Labs/Meds Orders: Active Orders 24 hr Category Date Time Status URINALYSIS W/MICROSCOPIC [UA W/MICROSCOPIC] [URIN] Stat Lab 01/08/21 08:40 Received Labs: Laboratory Tests 01/08/21 Range/Units 08:40 Urine Color Yellow (Yellow) Urine Appearance Clear (Clear) Urine pH 6.5 (5.0-8.0) Ur Specific [place] > or = 1.030 (1.005-1.030) Urine Protein 3+ H (Negative) Urine Glucose (UA) Negative (Negative) Urine Ketones Negative (Negative) Urine Occult Blood Trace-intact H (Negative) Urine Nitrite Negative (Negative) Urine Bilirubin Negative (Negative) Urine Urobilinogen 4.0 H (0.2-1.0) Ur Leukocyte Esterase Negative (Negative) - Radiology Interpretation Free Text/Narrative:: 50-year-old female presents to the ED for evaluation of acute onset of left lower quadrant, pelvic pain that started around 0300 hrs. this morning. She had gotten up to void and pain started shortly thereafter. It did make her very nauseated but she never vomited. Pain is eased up substantially since onset. It had a strong colicky component to it. Bowel function has been normal. History suggest possible renal stone. He may have passed into the urinary bladder since she is pain-free at this time. CT of the abdomen will be performed. A urinalysis will be obtained if one becomes available. - Re-Assessments/Exams Free Text/Narrative Re-Assessment/Exam: 01/08/21 09:00 CT scan of the abdomen and pelvis was performed per renal protocol. Small fatty lesion is noted within the left lower kidney which measures approximately 1.5 cm which is benign. Second small fatty lesion within the left lower kidney is also noted this is smaller in size but is also felt to be benign. Small fatty lesion is also detected within the right kidney which also appears to be benign. There are no areas of abnormal calcifications within the kidneys. No ureteral dilatation or ureteral stone is appreciated. Visua lized lung bases show nothing acute. Liver shows no discrete abnormality. Spleen appears within normal limits. Adrenal glands show no nodules. No abnormalities appreciated within the pancreas. Gallbladder contains no calcified gallstones. Abdominal aorta shows no aneurysm. Slight atherosclerotic calcification is noted. Small retroperitoneal lymph nodes are seen with that which are felt to be within normal limits. No pelvic mass or adenopathy is appreciated. Appendix is not visualized with certainty. Bone window settings were reviewed which show disc space narrowing at the L5-S1 level with mild degenerative apophyseal change. No acute osseous abnormalities are appreciated. Small fat-containing anterior abdominal wall hernia on the right side an area of scarring which contains no bowel. Patient may well of passed the stone she voided just coming to the ED and she is pain-free at the time of exam. She does have a small amount of increased stool throughout the colon but had a normal bowel movement this morning. At this night time no further treatment is indicated. Departure - Departure Time of Disposition: 08:58 Disposition: Home, Self-Care 01 Condition: Fair Clinical Impression: Renal colic on left side - Discharge Information *PRESCRIPTION DRUG MONITORING PROGRAM REVIEWED*: Not Applicable *COPY OF PRESCRIPTION DRUG MONITORING REPORT IN PATIENT BRUNILDA: Not Applicable Instructions: Kidney Stones, [id number], Renal Colic Referrals: Susan Yi PA-C [Primary Care Provider] - Forms: ED Department Discharge Additional Instructions: Evaluation in the emergency room this morning in regards to awakening at 0300 hrs. this morning with sudden onset of left lower quadrant pelvic pain. Pain was strongly colicky which means sharp stabbing and pain tends to wax and wane. No history of kidney stones in the past. CT scan of the abdomen was performed and reveals a mild hiatal hernia which makes you more prone to gastroesophageal reflux disease. Liver appears to be within normal limits gallbladder contains no gallstones. Pancreas normal. Kidneys do not show any evidence of kidney stones within the kidney tissue. There is some mild fatty deposition on the left and right kidney which is of no consequence. There is increased stool throughout the colon considered to be mild to moderate. No stones were identified in the ureters that drain the kidneys. It is suspect that you may well passed the kidney stone prior to coming to the emergency room today. Without a urine sample I cannot be sure of this. There is a small hernia attached to your surgical scar in the right side of your abdomen without any bowel content within it. Bowels work normally this morning. Therefore at this time no further treatment is indicated. Follow-up with personal care physician if any further problems occur. Sepsis Event Note (ED) - Evaluation Sepsis Screening Result: No Definite Risk - Focused Exam Vital Signs: Vital Signs Temp Pulse Resp BP Pulse Ox 01/08/21 07:42 36.5 C 113 H 18 185/95 H 96 - My Orders Last 24 Hours: My Active Orders 01/08/21 08:40 URINALYSIS W/MICROSCOPIC [UA W/MICROSCOPIC] [URIN] Stat - Assessment/Plan Last 24 Hours: My Active Orders 01/08/21 08:40 URINALYSIS W/MICROSCOPIC [UA W/MICROSCOPIC] [URIN] Stat
--- NOTE | 2021-01-08 08:42 | CT ---
CT abdomen and pelvis Technique: Multiple axial sections were obtained from above the dome of the diaphragm inferiorly through the pubic symphysis. Intravenous and oral contrast was not utilized. Study has been performed as a ureteral stone protocol. Comparison: No prior CT abdomen or pelvis study is available. Findings: Small fatty lesion is noted within the lower left kidney which measures approximately 1.5 cm which is benign. Second small fatty lesion within the left lower kidney is also noted, this is smaller in size but is also felt to be benign. Small fatty lesion is seen within the right kidney which is also benign. There are no areas of abnormal calcifications within the kidneys. No ureteral dilatation or ureteral stone is appreciated. Visualized lung bases show nothing acute. Liver shows no discrete abnormality. Spleen appears within normal limits. Adrenal glands show no nodule. No abnormality is appreciated within the pancreas. Gallbladder contains no calcified gallstones. Abdominal aorta shows no aneurysm. Slight atherosclerotic calcification is noted. Small retroperitoneal lymph nodes are seen which are felt to be within normal limits. No pelvic mass or adenopathy is appreciated. Appendix is not visualized with certainty. Bone window settings were reviewed which show disc space narrowing at L5-S1 with mild degenerative apophyseal change. No acute osseous abnormality is appreciated. Small anterior abdominal wall hernia is seen which appears to be in an area of scarring within the right abdomen. No bowel is seen within this hernia. Impression: 1. Small fatty lesions within both kidneys which are felt to be benign. No renal calculi, ureteral dilatation or ureteral stone is seen. 2. Small fat-containing anterior abdominal wall hernia on the right side in an area of scarring. 3. Nothing acute is otherwise seen on noncontrast CT study of the abdomen and pelvis. Diagnostic code #2
== END 2021-01-08 09:15 | disposition home or self-care (01) ==
LOC: JD.ED 07:30
DX: N23 Unspecified renal colic (principal); R60.0 Localized edema; E78.00 Pure hypercholesterolemia, unspecified; I10 Essential (primary) hypertension; Z91.041 Radiographic dye allergy status; E66.9 Obesity, unspecified; Z68.43 Body mass index [BMI] 50.0-59.9, adult; Z79.899 Other long term (current) drug therapy
CPT/HCPCS: 74176; 74176-26; 81001; 99284; 99284-25

== ENCOUNTER 2021-02-13 06:14 | Emergency (ER) | payer MEDICAID ==
[2021-02-13] MEDS ORDERED: Ondansetron 4 MG/2 ML SDV IVPUSH ONE (06:59)
[2021-02-13] MEDS ORDERED: HYDROmorphone 1 MG/ML Syringe IVPUSH STA (06:59)
[2021-02-13] MEDS ORDERED: Sodium Chloride 0.9% 1,000 ML IV SCH (07:00)
[2021-02-13] MEDS ORDERED: methylPREDNISolone Sodium Succinate 125 MG/2 ML SDV IVPUSH ONE (07:01)
--- NOTE | 2021-02-13 07:10 | EDM.PDOC ---
<Kelechi Coronado Pankaj - Last Filed: 02/13/21 07:46> ED HPI GENERAL MEDICAL PROBLEM - General Chief Complaint: Abdominal Pain Stated Complaint: ABD PAIN Time Seen by Provider: 02/13/21 06:46 Source of Information: Reports: Patient History Limitations: Reports: No Limitations - History of Present Illness INITIAL COMMENTS - FREE TEXT/NARRATIVE: Ms. Rose is a 50-year-old woman who now presents the ED with a complaint of lower abdominal/pelvic cramping that she has been experiencing on and off since yesterday. She states that she has also had some vaginal bleeding on and off since yesterday, and noticed some blood when she wiped after a bowel movement yesterday and today. No associated fever, nausea, vomiting, constipation, diarrhea, or urinary symptoms. No prior similar symptoms. The patient states that she took some Pepto-Bismol. The patient states that she finished her LMP about 3 weeks ago. She is on Coumadin for a pulmonary embolus. Here in the ED, the patient's initial BP is found to be modestly elevated at 152/90, with tachycardia 119 bpm and tachypnea of 24 rpm. She is afebrile, saturating 92% on 2 L of oxygen per nasal cannula. She appears to be mildly anxious, but in no acute distress. Prior to yesterday, the patient denies having a recent fever, chills, sore throat, ear pain, nasal or sinus congestion, cough, dyspnea, chest pain, palpitations, nausea, vomiting, constipation, diarrhea, abdominal pain, urinary symptoms, recent weight gain or weight loss, recent bloody bowel movements or black bowel movements, recent joint aches, headaches, or rashes. The patient's PCP is MADAY Ramos. Left Lower Abdomen Pain Score (Numeric/FACES): 10 - Related Data Allergies Allergy/AdvReac Type Severity Reaction Status Date / Time Iodinated Contrast Media Allergy Intermediate Hives Verified 02/13/21 08:56 Home Meds: Home Meds Lisinopril 40 mg PO DAILY 11/25/18 [History] Furosemide 60 mg PO BID 02/15/19 [History] Multivitamin 1 tab PO DAILY 01/09/20 [History] Potassium Chloride [Klor-Con M20] 20 meq PO TID 01/09/20 [History] Rosuvastatin [Crestor] 20 mg PO DAILY 01/09/20 [History] Warfarin Sodium [Jantoven] 5 mg PO TH 07/01/20 [History] Warfarin Sodium [Jantoven] 10 mg PO [id number] 07/01/20 [History] amLODIPine [Norvasc] 10 mg PO DAILY 12/08/20 [History] hydrOXYzine HCL [Hydroxyzine HCl] 25 - 50 mg PO QID PRN 12/08/20 [History] Metoprolol Tartrate 12.5 mg PO BID 02/13/21 [History] Past Medical History Cardiovascular History: Reports: High Cholesterol, Hypertension Respiratory History: Reports: PE Gastrointestinal History: Reports: Bowel Obstruction Endocrine/Metabolic History: Reports: Obesity/BMI 30+ - Past Surgical History GI Surgical History: Reports: Appendectomy, Lysis of Adhesions, Small Bowel (resection) Social & Family History - Tobacco Use Tobacco Use Status *Q: Never Tobacco User Second Hand Smoke Exposure: No - Caffeine Use Caffeine Use: Reports: Soda - Alcohol Use Alcohol Use History: No - Recreational Drug Use Recreational Drug Use: No - Living Situation & Occupation Living situation: Reports: Single, with Significant Other (Boyfriend), with Family (Son) Occupation: Unemployed ED ROS GENERAL - Review of Systems Review Of Systems: Comprehensive ROS is negative, except as noted in HPI. ED EXAM, GI/ABD - Physical Exam Exam: See Below Exam Limited By: No Limitations General Appearance: Alert, WD/WN, No Apparent Distress Eyes: Bilateral: Normal Appearance, EOMI Ears: Normal External Exam, Hearing Grossly Normal Nose: Normal Inspection Throat/Mouth: Normal Inspection, Normal Lips, Normal Voice, No Airway Compromise Head: Atraumatic, Normocephalic Neck: Normal Inspection, Full Range of Motion Respiratory/Chest: No Respiratory Distress, Lungs Clear, Normal Breath Sounds, No Accessory Muscle Use Cardiovascular: Normal Peripheral Pulses, Regular Rate, Rhythm, No Gallop, No JVD, No Murmur, No Rub GI/Abdominal Exam: Normal Bowel Sounds, Soft, No Organomegaly, No Distention, No Abnormal Bruit, No Mass, Tender (Left lower quadrant only, with no significant tenderness elsewhere) Back Exam: Normal Inspection, Full Range of Motion, NT Extremities: Normal Inspection, Normal Range of Motion, Normal Capillary Refill Neurological: Alert, Oriented, Normal Cognition, No Motor/Sensory Deficits Psychiatric: Anxious Skin Exam: Warm, Dry, Intact, Normal Color, No Rash Course - Re-Assessments/Exams Free Text/Narrative Re-Assessment/Exam: 02/13/21 07:05 As above, the patient has been experiencing lower abdominal/pelvic cramps since yesterday, along with vaginal bleeding and, possibly, some blood noticed on the toilet paper when she wiped after bowel movement both yesterday and today. No other symptoms. The patient is on Coumadin for pulmonary embolus. She states that she finished her LMP about 3 weeks ago. On examination, she is quite tender to her left lower quadrant, with no significant tenderness elsewhere, raising the concern of acute diverticulitis. I have ordered a work-up that includes several blood tests, a urinalysis, a urine test, and a CT of her abdomen and pelvis with oral and IV contrast. Because of the vaginal bleeding, the urinalysis will need to be acquired by quick catheter. The patient stated that she developed a rash to some form of contrast many years ago, but denies having an anaphylactic reaction. I have therefore ordered 125 mg of IV Solu-Medrol, along with IV diphenhydramine. She will also be given IV Dilaudid, IV Zofran, and IV fluid. 02/13/21 07:38 Due to the patient being hypoxemic, I ordered a swab for the SARS-CoV-2 virus. 02/13/21 07:[address] Yulissa Morgan, and care of the patient turned over to him at this time, for change of shift. Departure - Departure Disposition: Home, Self-Care 01 Clinical Impression: Abdominal pain Qualifiers: Abdominal location: left lower quadrant Qualified Code(s): R10.32 - Left lower quadrant pain - Discharge Information Referrals: Susan Yi PA-C [Primary Care Provider] - Forms: ED Department Discharge Additional Instructions: Clear liquids for the next few hours. Than very careful bland diet as tolerated. Follow up clinic as needed. Return to ED as needed if symptoms worsening in any way. Sepsis Event Note (ED) - Evaluation Sepsis Screening Result: No Definite Risk <Danny Morgan - Last Filed: 02/13/21 10:04> Course - Vital Signs Last Recorded V/S: Last Vital Signs Temp 99.3 F 02/13/21 09:10 Pulse 118 H 02/13/21 09:10 Resp 16 02/13/21 09:10 BP 145/74 H 02/13/21 09:10 Pulse Ox 98 02/13/21 09:10 - Orders/Labs/Meds Orders: Active Orders 24 hr Category Date Time Status Insert Lorenzo Catheter [Insert Urinary Catheter] [OM.PC] Care 02/13/21 07:45 Ordered Stat Oxygen Therapy, ED [] ASDIRECTED Care 02/13/21 07:00 Active Urinary Catheter Assessment [] ASDIRECTED Care 02/13/21 07:45 Active Sodium Chloride 0.9% [Normal Saline] 1,000 ml Med 02/13/21 07:00 Active IV ASDIRECTED Sodium Chloride 0.9% [Saline Flush] Med 02/13/21 07:20 Active 10 ml FLUSH ONETIME PRN Medication Orders Sodium Chloride (Normal Saline) 1,000 mls @ 150 mls/hr IV ASDIRECTED NATACHA Last Admin: 02/13/21 07:27 Dose: 150 mls/hr Documented by: HAMZAH Sodium Chloride (Sodium Chloride 0.9% 10 Ml Syringe) 10 ml FLUSH ONETIME PRN PRN Reason: IV FLUSH Last Admin: 02/13/21 08:53 Dose: 10 ml Documented by: DHRUV Labs: Laboratory Tests 02/13/21 02/13/21 02/13/21 Range/Units 07:15 07:15 07:45 WBC 8.74 (3.98-10.04) K/mm3 RBC 4.87 (3.98-5.22) M/mm3 Hgb 12.5 (11.2-15.7) gm/dl Hct 43.2 (34.1-44.9) % MCV 88.7 (79.4-94.8) fl MCH 25.7 (25.6-32.2) pg MCHC 28.9 L (32.2-35.5) g/dl RDW Std Deviation 56.9 H (36.4-46.3) fL Plt Count 213 (182-369) K/mm3 MPV 11.4 (9.4-12.3) fl Neutrophils % (Manual) 80 H (40-60) % Band Neutrophils % 2 (0-10) % Lymphocytes % (Manual) 7 L (20-40) % Atypical Lymphs % 0 % Monocytes % (Manual) 8 (2-10) % Eosinophils % (Manual) 2 (0.7-5.8) % Basophils % (Manual) 1 (0.1-1.2) Platelet Estimate Adequate RBC Morph Comment Normal Sodium 144 (136-145) mEq/L Potassium 4.0 (3.5-5.1) mEq/L Chloride 101 (98-107) mEq/L Carbon Dioxide 34 H (21-32) mEq/L Anion Gap 13.0 (5-15) BUN 21 H (7-18) mg/dL Creatinine 0.7 (0.55-1.02) mg/dL Est Cr Clr Drug Dosing 91.01 mL/min Estimated GFR (MDRD) > 60 (>60) mL/min BUN/Creatinine Ratio 30.0 H (14-18) Glucose 127 H (70-99) mg/dL Calcium 9.6 (8.5-10.1) mg/dL Magnesium 1.8 (1.8-2.4) mg/dL Total Bilirubin 0.5 (0.2-1.0) mg/dL AST 40 H (15-37) U/L ALT 36 (14-59) U/L Alkaline Phosphatase 122 H (46-116) U/L Total Protein 8.5 H (6.4-8.2) g/dl Albumin 3.4 (3.4-5.0) g/dl Globulin 5.1 gm/dL Albumin/Globulin Ratio 0.7 L (1-2) Urine Color Yellow (Yellow) Urine Appearance Clear (Clear) Urine pH 6.0 (5.0-8.0) Ur Specific [place] 1.025 (1.005-1.030) Urine Protein 3+ H (Negative) Urine Glucose (UA) Negative (Negative) Urine Ketones Negative (Negative) Urine Occult Blood Negative (Negative) Urine Nitrite Negative (Negative) Urine Bilirubin Negative (Negative) Urine Urobilinogen 1.0 (0.2-1.0) Ur Leukocyte Esterase Negative (Negative) Urine RBC 0-5 (0-5) /hpf Urine WBC 0-5 (0-5) /hpf Ur Squamous Epith Cells 0-5 (0-5) /hpf Urine Bacteria Few (FEW) /hpf Urine Mucus Few (FEW) /hpf Urine HCG, Qual (NEGATIVE) SARS-CoV-2 RNA (CADE) (NEGATIVE) 06/04/21 06/04/21 Range/Units 07:45 07:50 WBC (3.98-10.04) K/mm3 RBC (3.98-5.22) M/mm3 Hgb (11.2-15.7) gm/dl Hct (34.1-44.9) % MCV (79.4-94.8) fl MCH (25.6-32.2) pg MCHC (32.2-35.5) g/dl RDW Std Deviation (36.4-46.3) fL Plt Count (182-369) K/mm3 MPV (9.4-12.3) fl Neutrophils % (Manual) (40-60) % Band Neutrophils % (0-10) % Lymphocytes % (Manual) (20-40) % Atypical Lymphs % % Monocytes % (Manual) (2-10) % Eosinophils % (Manual) (0.7-5.8) % Basophils % (Manual) (0.1-1.2) Platelet Estimate RBC Morph Comment Sodium (136-145) mEq/L Potassium (3.5-5.1) mEq/L Chloride (98-107) mEq/L Carbon Dioxide (21-32) mEq/L Anion Gap (5-15) BUN (7-18) mg/dL Creatinine (0.55-1.02) mg/dL Est Cr Clr Drug Dosing mL/min Estimated GFR (MDRD) (>60) mL/min BUN/Creatinine Ratio (14-18) Glucose (70-99) mg/dL Calcium (8.5-10.1) mg/dL Magnesium (1.8-2.4) mg/dL Total Bilirubin (0.2-1.0) mg/dL AST (15-37) U/L ALT (14-59) U/L Alkaline Phosphatase (46-116) U/L Total Protein (6.4-8.2) g/dl Albumin (3.4-5.0) g/dl Globulin gm/dL Albumin/Globulin Ratio (1-2) Urine Color (Yellow) Urine Appearance (Clear) Urine pH (5.0-8.0) Ur Specific [place] (1.005-1.030) Urine Protein (Negative) Urine Glucose (UA) (Negative) Urine Ketones (Negative) Urine Occult Blood (Negative) Urine Nitrite (Negative) Urine Bilirubin (Negative) Urine Urobilinogen (0.2-1.0) Ur Leukocyte Esterase (Negative) Urine RBC (0-5) /hpf Urine WBC (0-5) /hpf Ur Squamous Epith Cells (0-5) /hpf Urine Bacteria (FEW) /hpf Urine Mucus (FEW) /hpf Urine HCG, Qual Negative (NEGATIVE) SARS-CoV-2 RNA (CADE) Negative (NEGATIVE) Meds: Medications Generic Name Dose Route Start Last Admin Trade Name Freq PRN Reason Stop Dose Admin Sodium Chloride 1,000 mls @ 150 mls/hr 02/13/21 07:00 02/13/21 07:27 Normal Saline IV 150 mls/hr ASDIRECTED NATACHA Administration Sodium Chloride 10 ml 02/13/21 07:20 02/13/21 08:53 Sodium Chloride 0.9% 10 Ml Syringe FLUSH 10 ml ONETIME PRN Administration IV FLUSH Discontinued Medications Generic Name Dose Route Start Last Admin Trade Name Freq PRN Reason Stop Dose Admin Diatrizoate Meglum/Diatrizoate Sod 120 ml 02/13/21 07:20 02/13/21 08:54 Diatrizoate Meglumine/Diatrizoate Sodium 37% 120 Ml Bottle PO 02/13/21 07:21 90 ml ONETIME ONE Administration Diphenhydramine HCl 50 mg 02/13/21 07:32 02/13/21 08:23 Diphenhydramine 50 Mg/Ml Sdv IVPUSH 02/13/21 07:33 50 mg ONETIME ONE Administration Hydromorphone HCl 1 mg 02/13/21 06:59 02/13/21 07:20 Hydromorphone 1 Mg/Ml Syringe IVPUSH 02/13/21 07:00 1 mg ONETIME STA Administration Iopamidol 100 ml 02/13/21 07:20 02/13/21 08:53 Iopamidol 612 Mg/Ml 100 Ml Bottle IVPUSH 02/13/21 07:21 100 ml ONETIME ONE Administration Iopamidol 50 ml 02/13/21 07:20 02/13/21 08:53 Iopamidol 612 Mg/Ml 50 Ml Sdv IVPUSH 02/13/21 07:21 50 ml ONETIME ONE Administration Methylprednisolone Sodium Succinate 125 mg 02/13/21 07:01 02/13/21 07:25 Methylprednisolone Sodium Succinate 125 Mg/2 Ml Sdv IVPUSH 02/13/21 07:02 125 mg ONETIME ONE Administration Ondansetron HCl 4 mg 02/13/21 06:59 02/13/21 07:18 Ondansetron 4 Mg/2 Ml Sdv IVPUSH 02/13/21 07:00 4 mg ONETIME ONE Administration - Re-Assessments/Exams Free Text/Narrative Re-Assessment/Exam: 02/13/21 10:01 Have assumed care from Dr Coronado. I agree with his hx and exam as documented. I have also interviewed patient. WBC normal, other labs relatively normal. CT no acute findings. She is resting comfortably pain free at this time. Discharge instr. as documented. Departure - Departure Time of Disposition: 10:03 Condition: Fair Sepsis Event Note (ED) - Focused Exam Vital Signs: Vital Signs Temp Pulse Resp BP Pulse Ox 02/13/21 09:10 99.3 F 118 H 16 145/74 H 98 02/13/21 06:43 97.9 F 119 H 24 H 152/90 H 92 L - My Orders Last 24 Hours: My Active Orders 02/13/21 07:00 Oxygen Therapy, ED [RC] ASDIRECTED - Assessment/Plan Last 24 Hours: My Active Orders 02/13/21 07:00 Oxygen Therapy, ED [RC] ASDIRECTED
[2021-02-13] MEDS ORDERED: Iopamidol 612 MG/ML 50 ML SDV IVPUSH ONE (07:20)
[2021-02-13] MEDS ORDERED: Diatrizoate Meglumine/Diatrizoate Sodium 37% 120 ML Bottle PO ONE (07:20)
[2021-02-13] MEDS ORDERED: Sodium Chloride 0.9% 10 ML Syringe FLUSH PRN (07:20)
[2021-02-13] MEDS ORDERED: Iopamidol 612 MG/ML 100 ML Bottle IVPUSH ONE (07:20)
[2021-02-13] MEDS ORDERED: diphenhydrAMINE 50 MG/ML SDV IVPUSH ONE (07:32)
[2021-02-13 09:11] VITALS: BP 145/74; PULSE 118
--- NOTE | 2021-02-13 09:17 | CT ---
CT abdomen and pelvis Technique: Multiple axial sections were obtained from above the dome of the diaphragm inferiorly through the pubic symphysis. Intravenous and oral contrast has been given. Delayed images were also obtained to the bladder. Reconstructed coronal and sagittal images were obtained. Comparison: Prior CT abdomen and pelvis exam of 01/08/21. Findings: Small portion of the visualized lung bases shows nothing acute. Liver shows no focal abnormality. Spleen size is within normal limits. Adrenal glands show no nodule. Small fatty lesion is seen seen within both kidneys which are stable from prior exam. Kidneys show symmetric contrast enhancement. Delayed images show contrast excretion into nondilated ureters as well as contrast within the bladder. Pancreas is within normal limits. Gallbladder contains no calcified gallstones. Abdominal aorta shows no aneurysm. No retroperitoneal adenopathy is seen. Minimal atherosclerotic change is seen within the aorta. No pelvic mass or adenopathy is seen. No inflammatory change is seen within the abdomen or pelvis. Mild fat-containing anterior abdominal wall hernia is seen in an area of scarring to the right of midline. This is stable from prior exam. Appendix is not seen. Bone window settings were reviewed which show disc space narrowing at L5-S1 with vacuum disc phenomena. No acute osseous abnormality is appreciated. Impression: 1. Findings as noted above. 2. Nothing acute is appreciated on CT study of the abdomen and pelvis. No findings of diverticulitis or other etiology of left lower quadrant pain. Diagnostic code #2
--- NOTE | 2021-02-13 09:59 | CR ---
Chest: Portable view of the chest was obtained. Comparison: Prior chest x-ray of 12/10/20. Heart is enlarged. Pulmonary vessels are felt to be slightly congested. Lungs otherwise are clear. Bony structures show nothing acute. Impression: 1. Findings are suspicious for mild CHF. Diagnostic code #3
== END 2021-02-13 10:19 | disposition home or self-care (01) ==
LOC: JD.ED 06:14
DX: R10.32 Left lower quadrant pain (principal); E78.00 Pure hypercholesterolemia, unspecified; I10 Essential (primary) hypertension; Z86.711 Personal history of pulmonary embolism; Z79.01 Long term (current) use of anticoagulants; Z68.30 Body mass index [BMI] 30.0-30.9, adult; Z79.899 Other long term (current) drug therapy; Z20.822 Contact with and (suspected) exposure to COVID-19
CPT/HCPCS: 36415; 71045; 74177; 80053; 81001; 81025; 83735; 85007; 85027; 87635; 96374; 96375; 99284; J1170; J1200; J2405; J2930; J7030; Q9963; Q9967; 99283; U0002

== ENCOUNTER 2021-03-28 13:14 | Emergency (ER) | payer MEDICAID ==
[2021-03-28] MEDS ORDERED: diphenhydrAMINE 50 MG/ML SDV IVPUSH ONE (13:45)
[2021-03-28] MEDS ORDERED: methylPREDNISolone Sodium Succinate 125 MG/2 ML SDV IVPUSH ONE (13:45)
[2021-03-28] MEDS ORDERED: Sodium Chloride 0.9% 1,000 ML IV STA (13:46)
[2021-03-28] MEDS ORDERED: Ondansetron 4 MG/2 ML SDV IVPUSH ONE (13:46)
[2021-03-28] MEDS ORDERED: HYDROmorphone 1 MG/ML Syringe IVPUSH ONE (13:46)
[2021-03-28] MEDS ORDERED: Famotidine 20 MG/2 ML SDV IVPUSH ONE (13:50)
--- NOTE | 2021-03-28 13:53 | EDM.PDOC ---
ED HPI GENERAL MEDICAL PROBLEM - General Chief Complaint: Abdominal Pain Stated Complaint: ABDOMINAL PAIN Time Seen by Provider: 03/28/21 13:23 Source of Information: Reports: Patient, RN Notes Reviewed History Limitations: Reports: No Limitations - History of Present Illness INITIAL COMMENTS - FREE TEXT/NARRATIVE: She is a 50-year-old female presenting to the emergency department with complaints of lower abdominal pain that began this morning. States she awoke around 6 AM the pain was present. She had a normal bowel movement around that time, but that since that time has been having diarrhea. She is had approximately 4 episodes thus far today. She reports nausea but no vomiting. She did not have any blood in her stools. She finished her last menstrual period 3 days ago. She took Tylenol around 10 AM this morning with little relief. Denies any fever or chills. States she has had pain similar to this in the past but nothing was found to be wrong. She does have an allergy to iodinated contrast, however she has received it last month with premedication. States that she did not have any reaction at that time. Lower Pelvic Pain Score (Numeric/FACES): 10 - Related Data Allergies Allergy/AdvReac Type Severity Reaction Status Date / Time Iodinated Contrast Media Allergy Intermediate Hives Verified 02/13/21 08:56 Home Meds: Home Meds Lisinopril 40 mg PO DAILY 11/25/18 [History] Furosemide 60 mg PO BID 02/15/19 [History] Multivitamin 1 tab PO DAILY 01/09/20 [History] Potassium Chloride [Klor-Con M20] 20 meq PO TID 01/09/20 [History] Rosuvastatin [Crestor] 20 mg PO DAILY 01/09/20 [History] Warfarin Sodium [Jantoven] 5 mg PO MOTH 07/01/20 [History] Warfarin Sodium [Jantoven] 10 mg PO SUTUWEFRSA 07/01/20 [History] amLODIPine [Norvasc] 10 mg PO DAILY 12/08/20 [History] hydrOXYzine HCL [Hydroxyzine HCl] 25 - 50 mg PO QID PRN 12/08/20 [History] Metoprolol Tartrate 12.5 mg PO BID 02/13/21 [History] levoFLOXacin [Levaquin] 750 mg PO DAILY 7 Days #7 tab 03/28/21 [Rx] metroNIDAZOLE [Flagyl] 500 mg PO Q8H 7 Days #21 tab 03/28/21 [Rx] Past Medical History - Past Health History Medical/Surgical History: Denies Medical/Surgical History HEENT History: Reports: None Cardiovascular History: Reports: High Cholesterol, Hypertension Other Cardiovascular History: pt states she had a murmur as a baby which reso lved. 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 She states she scratches at night - Infectious Disease History Infectious Disease History: Reports: None - Past Surgical History Head Surgeries/Procedures: Reports: None HEENT Surgical History: Reports: None Cardiovascular Surgical History: Reports: None Other Cardiovascular Surgeries/Procedures: Pt had DVT that turned into PE. Respiratory Surgical History: Reports: None Other Respiratory Surgeries/Procedures: Pt thinks she had a stent placed into the lungs for the blood clot. GI Surgical History: Reports: Appendectomy, Lysis of Adhesions, Small Bowel Other GI Surgeries/Procedures: resection Endocrine Surgical History: Reports: None Dermatological Surgical History: Reports: None Social & Family History - Family History Family Medical History: No Pertinent Family History HEENT: Reports: None GI: Reports: None Immunologic: Reports: None Oncologic: Reports: Lung, Other (See Below) Other Oncologic Family History: mother - Tobacco Use Tobacco Use Status *Q: Never Tobacco User - Caffeine Use Caffeine Use: Reports: Soda - Recreational Drug Use Recreational Drug Use: No - Living Situation & Occupation Living situation: Reports: Single, with Significant Other (Boyfriend), with Family (Son) Occupation: Unemployed ED ROS GENERAL - Review of Systems Review Of Systems: See Below Constitutional: Reports: No Symptoms. Denies: Fever, Chills HEENT: Reports: No Symptoms Respiratory: Reports: No Symptoms Cardiovascular: Reports: No Symptoms Endocrine: Reports: No Symptoms GI/Abdominal: Reports: Abdominal Pain, Diarrhea, Nausea. Denies: Bloody Stool, Vomiting : Reports: No Symptoms Musculoskeletal: Reports: No Symptoms Skin: Reports: No Symptoms Neurological: Reports: No Symptoms Psychiatric: Reports: No Symptoms Hematologic/Lymphatic: Reports: No Symptoms Immunologic: Reports: No Symptoms ED EXAM, GI/ABD - Physical Exam Exam: See Below Exam Limited By: No Limitations General Appearance: Alert, WD/WN, No Apparent Distress, Obese Respiratory/Chest: No Respiratory Distress, Lungs Clear, Normal Breath Sounds, No Accessory Muscle Use, Chest Non-Tender Cardiovascular: Normal Peripheral Pulses, Regular Rate, Rhythm, No Edema, No Gallop, No JVD, No Murmur, No Rub GI/Abdominal Exam: Normal Bowel Sounds, Soft, No Organomegaly, No Distention, No Abnormal Bruit, No Mass, Pelvis Stable, Tender (LLQ and mid lower) Neurological: Alert, Oriented, CN II-XII Intact, Normal Cognition, Normal Gait, Normal Reflexes, No Motor/Sensory Deficits Psychiatric: Normal Affect, Normal Mood Skin Exam: Warm, Dry, Intact, Normal Color, No Rash Course - Vital Signs Last Recorded V/S: Last Vital Signs Temp 97.5 F 03/28/21 18:35 Pulse 120 H 03/28/21 18:35 Resp 20 03/28/21 18:35 BP 109/74 03/28/21 18:35 Pulse Ox 91 L 03/28/21 18:35 - Orders/Labs/Meds Labs: Laboratory Tests 03/28/21 03/28/21 03/28/21 Range/Units 14:05 14:08 14:15 WBC 16.00 H (3.98-10.04) K/mm3 RBC 4.96 (3.98-5.22) M/mm3 Hgb 12.8 (11.2-15.7) gm/dl Hct 43.4 (34.1-44.9) % MCV 87.5 (79.4-94.8) fl MCH 25.8 (25.6-32.2) pg MCHC 29.5 L (32.2-35.5) g/dl RDW Std Deviation 51.9 H (36.4-46.3) fL Plt Count 240 (182-369) K/mm3 MPV 11.5 (9.4-12.3) fl Neut % (Auto) 89.4 H (34.0-71.1) % Lymph % (Auto) 5.6 L (19.3-51.7) % [place] % (Auto) 4.1 L (4.7-12.5) % Eos % (Auto) 0.6 L (0.7-5.8) Baso % (Auto) 0.1 (0.1-1.2) % Neut # (Auto) 14.32 H (1.56-6.13) K/mm3 Lymph # (Auto) 0.89 L (1.18-3.74) K/mm3 [place] # (Auto) 0.65 H (0.24-0.36) K/mm3 Eos # (Auto) 0.09 (0.04-0.36) K/mm3 Baso # (Auto) 0.02 (0.01-0.08) K/mm3 Manual Slide Review Abnormal smear Sodium (136-145) mEq/L Potassium (3.5-5.1) mEq/L Chloride (98-107) mEq/L Carbon Dioxide (21-32) mEq/L Anion Gap (5-15) BUN (7-18) mg/dL Creatinine (0.55-1.02) mg/dL Est Cr Clr Drug Dosing mL/min Estimated GFR (MDRD) (>60) mL/min BUN/Creatinine Ratio (14-18) Glucose (70-99) mg/dL Calcium (8.5-10.1) mg/dL Total Bilirubin (0.2-1.0) mg/dL AST (15-37) U/L ALT (14-59) U/L Alkaline Phosphatase (46-116) U/L C-Reactive Protein (<1.0) mg/dL Total Protein (6.4-8.2) g/dl Albumin (3.4-5.0) g/dl Globulin gm/dL Albumin/Globulin Ratio (1-2) Urine Color Light yellow (Yellow) Urine Appearance Clear (Clear) Urine pH 6.5 (5.0-8.0) Ur Specific [place] 1.020 (1.005-1.030) Urine Protein Negative (Negative) Urine Glucose (UA) Negative (Negative) Urine Ketones Negative (Negative) Urine Occult Blood Negative (Negative) Urine Nitrite Negative (Negative) Urine Bilirubin Negative (Negative) Urine Urobilinogen 0.2 (0.2-1.0) Ur Leukocyte Esterase Negative (Negative) U Hyaline Cast (Auto) 0-5 (0-5) /lpf Urine RBC 0-5 (0-5) /hpf Urine WBC Not seen (0-5) /hpf Ur Epithelial Cells Not seen (0-5) /hpf Urine Bacteria Rare (FEW) /hpf Urine Mucus Few (FEW) /hpf Urine HCG, Qual Negative (NEGATIVE) 03/28/21 Range/Units 14:15 WBC (3.98-10.04) K/mm3 RBC (3.98-5.22) M/mm3 Hgb (11.2-15.7) gm/dl Hct (34.1-44.9) % MCV (79.4-94.8) fl MCH (25.6-32.2) pg MCHC (32.2-35.5) g/dl RDW Std Deviation (36.4-46.3) fL Plt Count (182-369) K/mm3 MPV (9.4-12.3) fl Neut % (Auto) (34.0-71.1) % Lymph % (Auto) (19.3-51.7) % [place] % (Auto) (4.7-12.5) % Eos % (Auto) (0.7-5.8) Baso % (Auto) (0.1-1.2) % Neut # (Auto) (1.56-6.13) K/mm3 Lymph # (Auto) (1.18-3.74) K/mm3 [place] # (Auto) (0.24-0.36) K/mm3 Eos # (Auto) (0.04-0.36) K/mm3 Baso # (Auto) (0.01-0.08) K/mm3 Manual Slide Review Sodium 142 (136-145) mEq/L Potassium 4.4 (3.5-5.1) mEq/L Chloride 102 (98-107) mEq/L Carbon Dioxide 31 (21-32) mEq/L Anion Gap 13.4 (5-15) BUN 14 (7-18) mg/dL Creatinine 0.8 (0.55-1.02) mg/dL Est Cr Clr Drug Dosing 79.63 mL/min Estimated GFR (MDRD) > 60 (>60) mL/min BUN/Creatinine Ratio 17.5 (14-18) Glucose 135 H (70-99) mg/dL Calcium 9.6 (8.5-10.1) mg/dL Total Bilirubin 0.5 (0.2-1.0) mg/dL AST 39 H (15-37) U/L ALT 42 (14-59) U/L Alkaline Phosphatase 130 H (46-116) U/L C-Reactive Protein 0.9 (<1.0) mg/dL Total Protein 8.3 H (6.4-8.2) g/dl Albumin 3.4 (3.4-5.0) g/dl Globulin 4.9 gm/dL Albumin/Globulin Ratio 0.7 L (1-2) Urine Color (Yellow) Urine Appearance (Clear) Urine pH (5.0-8.0) Ur Specific [place] (1.005-1.030) Urine Protein (Negative) Urine Glucose (UA) (Negative) Urine Ketones (Negative) Urine Occult Blood (Negative) Urine Nitrite (Negative) Urine Bilirubin (Negative) Urine Urobilinogen (0.2-1.0) Ur Leukocyte Esterase (Negative) U Hyaline Cast (Auto) (0-5) /lpf Urine RBC (0-5) /hpf Urine WBC (0-5) /hpf Ur Epithelial Cells (0-5) /hpf Urine Bacteria (FEW) /hpf Urine Mucus (FEW) /hpf Urine HCG, Qual (NEGATIVE) Meds: Medications Discontinued Medications Generic Name Dose Route Start Last Admin Trade Name Freq PRN Reason Stop Dose Admin Diatrizoate Meglum/Diatrizoate Sod 120 ml 03/28/21 16:06 03/28/21 16:29 Diatrizoate Meglumine/Diatrizoate Sodium 37% 120 Ml Bottle PO 03/28/21 16:07 90 ml ONETIME ONE Administration Diphenhydramine HCl 50 mg 03/28/21 13:45 03/28/21 14:23 Diphenhydramine 50 Mg/Ml Sdv IVPUSH 03/28/21 13:46 50 mg ONETIME ONE Administration Famotidine 20 mg 03/28/21 13:50 03/28/21 14:32 Famotidine 20 Mg/2 Ml Sdv IVPUSH 03/28/21 13:51 20 mg ONETIME ONE Administration Hydromorphone HCl 1 mg 03/28/21 13:46 03/28/21 14:25 Hydromorphone 1 Mg/Ml Syringe IVPUSH 03/28/21 13:47 1 mg ONETIME ONE Administration Sodium Chloride 1,000 mls @ 100 mls/hr 03/28/21 13:46 03/28/21 14:40 Normal Saline IV 03/28/21 23:45 100 mls/hr NOW STA Administration Iopamidol 50 ml 03/28/21 16:06 03/28/21 16:30 Iopamidol 612 Mg/Ml 50 Ml Sdv IVPUSH 03/28/21 16:07 25 ml ONETIME ONE Administration Iopamidol 100 ml 03/28/21 16:06 03/28/21 16:40 Iopamidol 612 Mg/Ml 100 Ml Bottle IVPUSH 03/28/21 16:07 100 ml ONETIME ONE Administration Iopamidol 100 ml 03/28/21 16:39 Iopamidol 612 Mg/Ml 100 Ml Bottle IVPUSH 03/28/21 16:40 ONETIME ONE Methylprednisolone Sodium Succinate 125 mg 03/28/21 13:45 03/28/21 14:30 Methylprednisolone Sodium Succinate 125 Mg/2 Ml Sdv IVPUSH 03/28/21 13:46 125 mg ONETIME ONE Administration Ondansetron HCl 4 mg 03/28/21 13:46 03/28/21 14:27 Ondansetron 4 Mg/2 Ml Sdv IVPUSH 03/28/21 13:47 4 mg ONETIME ONE Administration Sodium Chloride 10 ml 03/28/21 13:46 03/28/21 16:31 Sodium Chloride 0.9% 10 Ml Syringe FLUSH 10 ml ASDIRECTED PRN Administration Keep Vein Open Sodium Chloride 10 ml 03/28/21 16:15 Sodium Chloride 0.9% 10 Ml Syringe FLUSH ASDIRECTED NATACHA - Re-Assessments/Exams Free Text/Narrative Re-Assessment/Exam: Patient is a 50-year-old female presenting to the emergency department complaints of left lower quadrant and mid lower abdominal pain that began this morning. She has had some associated diarrhea. Denies any blood in her stools. She has had no nausea or vomiting. Finished her last menstrual period about 3 days ago.On exam. She does have diffuse tenderness to palpation of left lower quadrant and mid lower abdomen. I have ordered blood work, urinalysis, and CT of the abdomen pelvis with IV and oral contrast. She does have an allergy to identity contrast, however with premedication she tolerates it without difficulty. I have ordered Benadryl, Pepcid, and Solu-Medrol for CT premedication as well as IV fluids, Dilaudid, and Zofran. 03/28/21 17:19 Hematology significant for WBC elevated 16.0 CRP normal at 0.9. Urine shows no signs of infection. Patient's pain has resolved after the pain medications given. It has not returned. She tolerated the IV contrast well. We are waiting for CT results at this point. 03/28/21 17:55 CT results impression as follows: 1. 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 Subtle stranding adjacent to the sigmoid colon noted. No significant diverticulosis to suggest diverticulitis. Prominent retroperitoneal mesenteric lymph nodes. These findings is mild specific. 3. Mildly prominent uterus and ovaries. Recommend clinical correlation and pelvic ultrasound if indicated. Patient has had no recurrence of pain at this point. Risk results discussed. Decision has been made to send her home with prescription for Levaquin and Flagyl to treat for possible diverticulitis should her pain return. She can fill these as needed. Recommend follow-up with primary care on Tuesday. Discuss ed return precautions. Discharge instructions as documented. Departure - Departure Time of Disposition: 17:55 Disposition: Home, Self-Care 01 Condition: Good Clinical Impression: Abdominal pain Qualifiers: Abdominal location: left lower quadrant Qualified Code(s): R10.32 - Left lower quadrant pain - Discharge Information *PRESCRIPTION DRUG MONITORING PROGRAM REVIEWED*: No *COPY OF PRESCRIPTION DRUG MONITORING REPORT IN PATIENT BRUNILDA: No Prescriptions: metroNIDAZOLE [Flagyl] 500 mg PO Q8H 7 Days #21 tab levoFLOXacin [Levaquin] 750 mg PO DAILY 7 Days #7 tab Instructions: Abdominal Pain, Adult, [id number] Referrals: Susan Yi PA-C [Primary Care Provider] - Forms: ED Department Discharge Additional Instructions: You were seen in the emergency department today for left lower and mid lower abdominal pain. Work-up included blood work, urinalysis, CT scan abdomen pelvis. Results of your work-up showed mildly elevated white blood cells which is nonspecific. CT scan showed some very subtle signs of inflammation near your colon. This could be a result of gastroenteritis or early diverticulitis. Your pain had resolved in the ER. If pain should return, you have been provided prescription for Levaquin and Flagyl which would treat for diverticulitis. Use these as prescribed if needed. Recommend follow-up with your primary care provider on Tuesday. Return to ER for new or worsening symptoms. Sepsis Event Note (ED) - Evaluation Sepsis Screening Result: No Definite Risk
[2021-03-28] MEDS: Sodium Chloride 0.9% 10 ML Syringe FLUSH PRN ×2 (14:40→16:31)
[2021-03-28] MEDS ORDERED: Iopamidol 612 MG/ML 50 ML SDV IVPUSH ONE (16:06)
[2021-03-28] MEDS ORDERED: Iopamidol 612 MG/ML 100 ML Bottle IVPUSH ONE ×2 (16:06→16:39)
[2021-03-28] MEDS ORDERED: Diatrizoate Meglumine/Diatrizoate Sodium 37% 120 ML Bottle PO ONE (16:06)
[2021-03-28] MEDS ORDERED: Sodium Chloride 0.9% 10 ML Syringe FLUSH SCH (16:15)
[2021-03-28 18:38] VITALS: BP 109/74; PULSE 120
--- NOTE | 2021-03-29 09:00 | CT ---
CT abdomen and pelvis Technique: Multiple axial sections were obtained from above the dome of the diaphragm inferiorly through the pubic symphysis. Intravenous and oral contrast was utilized. Delayed images were also obtained through the bladder. Reconstructed coronal and sagittal images were obtained. Comparison: Prior CT abdomen and pelvis exam of 02/13/21. Prior CT chest study of 02/15/19 was also utilized. Findings: Small nodule measuring 2 mm is noted within the left lung base similar to prior studies which most likely is benign. Minimal atelectasis is noted. Liver shows mild fatty infiltration without focal abnormality. Spleen size is normal. Adrenal glands show no nodule. No abnormality is seen within the pancreas. Gallbladder contains no calcified gallstones. Abdominal aorta shows no aneurysm. Small scattered lymph nodes are seen within the retroperitoneum which are believed to be stable. No pelvic mass or adenopathy is seen. Minimal increased density is noted adjacent to the sigmoid colon which is stable from prior exams and likely chronic. Delayed images show contrast within the distal ureters and within the bladder. No free fluid or other inflammatory change is seen. Bone window settings were reviewed which show disc space narrowing at L5-S1 with vacuum phenomena. No acute osseous abnormality is appreciated. Impression: 1. Findings as noted above which are chronic. 2. Nothing acute is appreciated on CT study of the abdomen and pelvis. Diagnostic code #2 I agree with preliminary report from [facility] finalized on 03/28/21, 6:25 PM CDT, code 1
== END 2021-03-28 18:45 | disposition home or self-care (01) ==
LOC: JD.ED 13:14
DX: R10.32 Left lower quadrant pain (principal); E78.00 Pure hypercholesterolemia, unspecified; I10 Essential (primary) hypertension; E66.9 Obesity, unspecified; Z68.44 Body mass index [BMI] 60.0-69.9, adult; Z91.041 Radiographic dye allergy status; Z79.01 Long term (current) use of anticoagulants; Z79.899 Other long term (current) drug therapy
CPT/HCPCS: 36415; 74177; 80053; 81001; 81025; 85025; 86140; 96374; 96375; 99284; J1170; J1200; J2405; J2930; J3490; J7030; Q9963; Q9967

== ENCOUNTER 2021-06-16 17:18 | Emergency (ER) | payer MEDICAID ==
[2021-06-16 18:02] VITALS: BP 146/90; PULSE 124
[2021-06-16] MEDS ORDERED: Simethicone 80 MG Tab.Chew PO ONE ×2 (20:39→21:25)
--- NOTE | 2021-06-16 20:43 | EDM.PDOC ---
ED HPI GENERAL MEDICAL PROBLEM - General Chief Complaint: Abdominal Pain Stated Complaint: SIDE PAIN Time Seen by Provider: 06/16/21 20:33 Source of Information: Reports: Patient, RN Notes Reviewed History Limitations: Reports: No Limitations - History of Present Illness INITIAL COMMENTS - FREE TEXT/NARRATIVE: Patient is a 50-year-old female who presents to the ER for the evaluation of her abdomen discomfort. Patient states that she developed some left lower quadrant abdominal pain last night, and took some Gas-X because she thought it was gas and she states that the pain kind of comes and goes, when she passes gas the pain seems to relieve itself for a little bit and then it gets worse again. She is having bowel movements, and notes she is having a little bit of diarrhea type stools with this. No nausea no vomiting no cough no shortness of breath no fevers or chills. Patient is concerned that she just has gas. Left Lower Abdomen Pain Score (Numeric/FACES): 8 - Related Data Allergies Allergy/AdvReac Type Severity Reaction Status Date / Time Iodinated Contrast Media Allergy Intermediate Hives Verified 06/16/21 18:02 Home Meds: Home Meds Lisinopril 40 mg PO DAILY 11/25/18 [History] Furosemide 60 mg PO BID 02/15/19 [History] Multivitamin 1 tab PO DAILY 01/09/20 [History] Potassium Chloride [Klor-Con M20] 20 meq PO TID 01/09/20 [History] Rosuvastatin [Crestor] 20 mg PO DAILY 01/09/20 [History] Warfarin Sodium [Jantoven] 5 mg PO MOTH 07/01/20 [History] Warfarin Sodium [Jantoven] 10 mg PO SUTUWEFRSA 07/01/20 [History] amLODIPine [Norvasc] 10 mg PO DAILY 12/08/20 [History] hydrOXYzine HCL [Hydroxyzine HCl] 25 - 50 mg PO QID PRN 12/08/20 [History] Metoprolol Tartrate 12.5 mg PO BID 02/13/21 [History] levoFLOXacin [Levaquin] 750 mg PO DAILY 7 Days #7 tab 03/28/21 [Rx] metroNIDAZOLE [Flagyl] 500 mg PO Q8H 7 Days #21 tab 03/28/21 [Rx] Simethicone 180 mg PO TID #15 capsule 06/16/21 [Rx] Past Medical History - Past Health History Medical/Surgical History: Denies Medical/Surgical History HEENT History: Reports: None Cardiovascular History: Reports: Blood Clots/VTE/DVT, High Cholesterol, Hypertension Other Cardiovascular History: pt states she had a murmur as a baby which resolved. 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 She states she scratches at night - Infectious Disease History Infectious Disease History: Reports: None - Past Surgical History Other Cardiovascular Surgeries/Procedures: Pt had DVT that turned into PE. Other Respiratory Surgeries/Procedures: Pt thinks she had a stent placed into the lungs for the blood clot. GI Surgical History: Reports: Appendectomy, Lysis of Adhesions, Small Bowel Other GI Surgeries/Procedures: resection Social & Family History - Family History Family Medical History: No Pertinent Family History HEENT: Reports: None GI: Reports: None Immunologic: Reports: None Oncologic: Reports: Lung, Other (See Below) Other Oncologic Family History: mother - Tobacco Use Tobacco Use Status *Q: Never Tobacco User - Caffeine Use Caffeine Use: Reports: Soda - Recreational Drug Use Recreational Drug Use: No - Living Situation & Occupation Living situation: Reports: Single, with Significant Other (Boyfriend), with Family (Son) Occupation: Unemployed ED ROS GENERAL - Review of Systems Review Of Systems: Comprehensive ROS is negative, except as noted in HPI. ED EXAM, GI/ABD - Physical Exam Exam: See Below Exam Limited By: No Limitations General Appearance: Alert, WD/WN, No Apparent Distress Respiratory/Chest: No Respiratory Distress, Lungs Clear, Normal Breath Sounds, No Accessory Muscle Use, Chest Non-Tender Cardiovascular: Normal Peripheral Pulses, Regular Rate, Rhythm, No Edema GI/Abdominal Exam: Normal Bowel Sounds, Soft, No Distention, Tender (upper abd mainly, just slightly tender) Extremities: Normal Inspection, Normal Capillary Refill Neurological: Alert, Oriented, Normal Cognition, No Motor/Sensory Deficits Psychiatric: Normal Affect, Normal Mood Skin Exam: Warm, Dry, Intact, Normal Color, No Rash Course - Vital Signs Last Recorded V/S: Last Vital Signs Temp 97.9 F 06/16/21 17:59 Pulse 124 H 06/16/21 17:59 Resp 20 06/16/21 17:59 BP 146/90 H 06/16/21 17:59 Pulse Ox 90 L 06/16/21 17:59 - Orders/Labs/Meds Meds: Medications Discontinued Medications Generic Name Dose Route Start Last Admin Trade Name Neena PRN Reason Stop Dose Admin Simethicone 160 mg 06/16/21 20:39 06/16/21 20:45 Simethicone 80 Mg Tab.Chew PO 06/16/21 20:40 160 mg ONETIME ONE Administration - Re-Assessments/Exams Free Text/Narrative Re-Assessment/Exam: 06/16/21 20:43 Patient presents to the ER for evaluation of her abdominal pain and discomfort. I did offer to do an abdomen x-ray to evaluate the patient's stool/gas pattern, but she declined at this time. She states she would just like to try some medicine to help see if this helps relieve her gas. I have ordered 160 mg of simethicone for this. Departure - Departure Time of Disposition: 21:05 Disposition: Home, Self-Care 01 Condition: Good Clinical Impression: Colicky LLQ abdominal pain, Abdominal gas pain - Discharge Information *PRESCRIPTION DRUG MONITORING PROGRAM REVIEWED*: No *COPY OF PRESCRIPTION DRUG MONITORING REPORT IN PATIENT BRUNILDA: No Prescriptions: Simethicone 180 mg PO TID #15 capsule Instructions: Abdominal Pain, Adult, [id number] Referrals: Susan iY PA-C [Primary Care Provider] - Forms: ED Department Discharge Additional Instructions: You were evaluated in the ER today for your left lower quadrant abdominal pain. You were given 1 dose of simethicone while being in the ER, and this seemed to help relieve some of your abdominal discomfort. You were given a prescription for this, you can take 1 tablet 3 times a day for the next few days to see if this helps relieve your pain. This medication was electronically sent to the [facility] located near [facility]. Please monitor your symptoms at home, if things do not seem to be getting better after a few doses of the simethicone, I would recommend that you follow-up with your regular care provider for ongoing management. Sepsis Event Note (ED) - Evaluation Sepsis Screening Result: No Definite Risk - Focused Exam Vital Signs: Vital Signs Temp Pulse Resp BP Pulse Ox 06/16/21 17:59 97.9 F 124 H 20 146/90 H 90 L
== END 2021-06-16 21:32 | disposition home or self-care (01) ==
LOC: JD.ED 17:18
DX: R10.32 Left lower quadrant pain (principal); R14.0 Abdominal distension (gaseous); Z91.041 Radiographic dye allergy status; I10 Essential (primary) hypertension; E78.00 Pure hypercholesterolemia, unspecified; E66.9 Obesity, unspecified; Z86.711 Personal history of pulmonary embolism; Z79.01 Long term (current) use of anticoagulants; Z79.899 Other long term (current) drug therapy; Z68.42 Body mass index [BMI] 45.0-49.9, adult
CPT/HCPCS: 99283; A9270

== ENCOUNTER 2021-10-04 10:09 | Inpatient (IN) | payer MEDICAID ==
[2021-10-04] MEDS ORDERED: Sodium Chloride 0.9% 10 ML Syringe FLUSH PRN (10:58)
[2021-10-04] MEDS ORDERED: Sodium Chloride 0.9% 1,000 ML IV ONE (11:52)
[2021-10-04] MEDS ORDERED: Acetaminophen 325 MG Tab PO ONE (12:16)
[2021-10-04 12:32] LABS: CORONAVIRUS COVID-19 NAA POSITIVE (NEGATIVE)
[2021-10-04] MEDS ORDERED: 50% Dextrose in Water 50 ML Syringe IVPUSH ONE (12:59)
[2021-10-04] MEDS ORDERED: Calcium Gluconate 10% 1 GM/10 ML SDV IVPUSH ONE (12:59)
[2021-10-04] MEDS ORDERED: Albuterol 0.083% 2.5 MG/3 ML Neb Soln NEB ONE (12:59)
[2021-10-04] MEDS ORDERED: Sodium Polystyrene Sulfonate 15 GM/60 ML Susp 60 ML Bot PO ONE (13:00)
[2021-10-04] MEDS ORDERED: Insulin Regular, Human 100 Units/ML 3 ML Vial SUBCUT ONE (13:00)
[2021-10-04] MEDS ORDERED: Sodium Bicarbonate 8.4% 50 MEQ/50 ML Syringe IVPUSH ONE (13:01)
[2021-10-04] MEDS ORDERED: HYDROmorphone 1 MG/ML Syringe IVPUSH ONE (13:09)
[2021-10-04] MEDS ORDERED: Promethazine 12.5 MG in Sodium Chloride 0.9% 50 ML IV PRN (14:20)
[2021-10-04] MEDS ORDERED: Acetaminophen 650 MG Supp RECTAL PRN (14:20)
[2021-10-04] MEDS ORDERED: Albuterol 0.083% 2.5 MG/3 ML Neb Soln INH PRN (14:20)
[2021-10-04] MEDS ORDERED: Morphine 2 MG/ML SYRINGE IVPUSH PRN (14:20)
[2021-10-04] MEDS ORDERED: Albuterol/Ipratropium 3.0-0.5 MG/3 ML Neb Soln NEB PRN (14:20)
[2021-10-04] MEDS ORDERED: hydrALAZINE 20 MG/ML SDV IVPUSH PRN (14:30)
[2021-10-04] MEDS ORDERED: Sodium Chloride 0.9% 500 ML IV SCH (14:36)
[2021-10-04] MEDS: Simethicone 80 MG Tab.Chew PO SCH ×2 (16:41→20:05)
[2021-10-04] MEDS: cefTRIAXone 1 GM in Sodium Chloride 0.9% 100 ML IV SCH (16:41)
[2021-10-04] MEDS: Metoprolol Tartrate 25 MG Tab PO SCH ×2 (16:41→20:06)
[2021-10-04] MEDS: Sodium Chloride 0.9% 1,000 ML IV SCH (16:42)
[2021-10-04] MEDS: Acetaminophen 325 MG Tab PO PRN (18:39)
[2021-10-04] MEDS: oxyCODONE 5 MG Tab PO PRN (20:06)
[2021-10-04] MEDS: traZODone 50 MG Tab PO PRN (23:12)
[2021-10-05] MEDS: oxyCODONE 5 MG Tab PO PRN ×3 (06:20→21:52)
[2021-10-05] MEDS: Sodium Chloride 0.9% 1,000 ML IV SCH (07:39)
[2021-10-05] MEDS ORDERED: Phytonadione 1 MG in Sodium Chloride 0.9% 50 ML IV ONE (09:00)
[2021-10-05] MEDS ORDERED: Furosemide 20 MG/2 ML VIAL IVPUSH ONE (09:00)
[2021-10-05] MEDS: Rosuvastatin 10 MG Tab PO SCH (09:06)
[2021-10-05] MEDS: Metoprolol Tartrate 25 MG Tab PO SCH ×2 (09:07→22:00)
[2021-10-05] MEDS: Simethicone 80 MG Tab.Chew PO SCH ×3 (09:08→22:00)
[2021-10-05] MEDS: Multivitamin Tab PO SCH (09:08)
[2021-10-05] MEDS: Sodium Polystyrene Sulfonate 15 GM/60 ML Susp 60 ML Bot PO SCH ×2 (09:09→11:50)
[2021-10-05] MEDS ORDERED: Magnesium Sulfate/Water 2 GM in Premix Bag 1 BAG IV ONE (09:30)
[2021-10-05] MEDS: methylPREDNISolone Sodium Succinate 40 MG/1 ML SDV IVPUSH SCH ×2 (11:45→17:41)
[2021-10-05] MEDS: Acetaminophen 325 MG Tab PO PRN (14:38)
[2021-10-05] MEDS: cefTRIAXone 1 GM in Sodium Chloride 0.9% 100 ML IV SCH (14:44)
[2021-10-05] MEDS ORDERED: cefTRIAXone 1 GM in Sodium Chloride 0.9% 100 ML IV SCH (14:45)
[2021-10-05] MEDS: cefTRIAXone 2 GM in Sodium Chloride 0.9% 100 ML IV SCH (14:50)
[2021-10-05] MEDS ORDERED: REMDESIVIR 200 MG in Sodium Chloride 0.9% 250 ML IV ONE (15:30)
[2021-10-05] MEDS: Nystatin Topical Powder 15 GM Bottle TOP SCH ×2 (17:13→22:00)
[2021-10-05] MEDS ORDERED: Furosemide 40 MG/4 ML VIAL IVPUSH ONE (19:25)
[2021-10-05] MEDS ORDERED: Sodium Polystyrene Sulfonate 15 GM/60 ML Susp 60 ML Bot RECTAL ONE (19:26)
[2021-10-05] MEDS ORDERED: Sodium Bicarbonate 8.4% 50 MEQ/50 ML Syringe IVPUSH ONE (19:27)
[2021-10-05] MEDS ORDERED: Insulin Lispro 100 UNIT/ML 10 ML Vial IV ONE (19:42)
[2021-10-05] MEDS ORDERED: 50% Dextrose in Water 50 ML Syringe IVPUSH ONE (19:45)
[2021-10-05] MEDS ORDERED: Sodium Polystyrene Sulfonate 15 GM/60 ML Susp 60 ML Bot PO ONE (20:43)
[2021-10-05] MEDS ORDERED: Insulin Regular, Human 100 Units/ML 3 ML Vial IV ONE (21:04)
[2021-10-06] MEDS: methylPREDNISolone Sodium Succinate 40 MG/1 ML SDV IVPUSH SCH ×3 (02:50→18:35)
[2021-10-06] MEDS: Sodium Chloride 0.9% 1,000 ML IV SCH (04:00)
[2021-10-06] MEDS ORDERED: Sodium Chloride 0.45% 1,000 ML IV SCH (09:15)
[2021-10-06] MEDS: Multivitamin Tab PO SCH (09:57)
[2021-10-06] MEDS: Metoprolol Tartrate 25 MG Tab PO SCH ×2 (09:57→20:25)
[2021-10-06] MEDS: Simethicone 80 MG Tab.Chew PO SCH ×3 (09:57→20:25)
[2021-10-06] MEDS: Rosuvastatin 10 MG Tab PO SCH (09:58)
[2021-10-06] MEDS: Nystatin Topical Powder 15 GM Bottle TOP SCH ×2 (10:01→20:30)
[2021-10-06] MEDS ORDERED: amLODIPine 5 MG Tab PO SCH (14:15)
[2021-10-06] MEDS ORDERED: Sodium Chloride 0.9% 250 ML ONE (14:43)
[2021-10-06] MEDS: cefTRIAXone 2 GM in Sodium Chloride 0.9% 100 ML IV SCH (14:59)
[2021-10-06] MEDS: amLODIPine 10 MG Tab PO SCH (15:11)
[2021-10-06] MEDS ORDERED: REMDESIVIR 100 MG in Sodium Chloride 0.9% 250 ML IV SCH (15:30)
[2021-10-06] MEDS: traZODone 50 MG Tab PO PRN (20:51)
[2021-10-07] MEDS: methylPREDNISolone Sodium Succinate 40 MG/1 ML SDV IVPUSH SCH ×2 (02:32→09:36)
[2021-10-07] MEDS ORDERED: Apixaban 5 MG Tab PO SCH (09:00)
[2021-10-07] MEDS: Rosuvastatin 10 MG Tab PO SCH (09:35)
[2021-10-07] MEDS: Multivitamin Tab PO SCH (09:36)
[2021-10-07] MEDS: Metoprolol Tartrate 25 MG Tab PO SCH (09:36)
[2021-10-07] MEDS: amLODIPine 10 MG Tab PO SCH (09:36)
[2021-10-07] MEDS: Simethicone 80 MG Tab.Chew PO SCH ×2 (09:36→14:13)
[2021-10-07] MEDS: Nystatin Topical Powder 15 GM Bottle TOP SCH (09:37)
[2021-10-07 09:45] VITALS: PULSE 82
[2021-10-07 13:04] VITALS: BP 137/64
[2021-10-07] MEDS: Magnesium Sulfate/Water 2 GM in Premix Bag 1 BAG IV ONE ×2 (13:27→13:30)
[2021-10-07] MEDS ORDERED: Magnesium Oxide 400 MG Tab PO ONE (14:00)
== END 2021-10-07 15:00 | disposition home or self-care (01) | DRG 871 ==
LOC: JD.ED 10:09 → JD.ICU 14:21
PROVIDERS: ADMIT Internal Medicine; ATTEND Internal Medicine
PROC: 8E0ZXY6 Isolation (ICD-10-PCS; principal; 2021-10-04)
PROC: XW033E5 Introduction of Remdesivir Anti-infective into Peripheral Vein, Percutaneous Approach, New Technology Group 5 (ICD-10-PCS; 2021-10-04)
DX: A41.89 Other specified sepsis (principal); U07.1 COVID-19; E78.5 Hyperlipidemia, unspecified; J12.82 Pneumonia due to coronavirus disease 2019; D68.8 Other specified coagulation defects; E78.00 Pure hypercholesterolemia, unspecified; I10 Essential (primary) hypertension; Z86.718 Personal history of other venous thrombosis and embolism; N17.9 Acute kidney failure, unspecified; Z91.041 Radiographic dye allergy status; Z68.43 Body mass index [BMI] 50.0-59.9, adult; Z79.899 Other long term (current) drug therapy; E66.01 Morbid (severe) obesity due to excess calories; E86.0 Dehydration; E87.5 Hyperkalemia; I12.9 Hypertensive chronic kidney disease with stage 1 through stage 4 chronic kidney disease, or unspecified chronic kidney disease; N18.9 Chronic kidney disease, unspecified; R21 Rash and other nonspecific skin eruption; Z86.711 Personal history of pulmonary embolism; Z79.01 Long term (current) use of anticoagulants
CPT/HCPCS: 0241U; 36415; 36430; 71045; 80048; 80053; 80306; 81001; 82947; 83605; 83735; 83880; 84145; 85025; 85379; 85610; 86140; 86900; 86901; 87040; 93005; 94640; 94762; 96374; 96375; 99285; 93010; A9270-GY; J0610; J0696; J1170; J1815-GY; J1940; J2550; J2920; J3430; J3475; J7030; J7050; P9017

== ENCOUNTER 2022-01-31 19:38 | Emergency (ER) | payer MEDICAID ==
[2022-01-31 20:10] VITALS: BP 186/90; PULSE 146
[2022-01-31] MEDS ORDERED: Sodium Chloride 0.9% 10 ML Syringe FLUSH PRN (20:10)
[2022-01-31] MEDS ORDERED: Ondansetron 4 MG/2 ML SDV IVPUSH ONE (20:21)
[2022-01-31] MEDS ORDERED: HYDROmorphone 1 MG/ML Syringe IV ONE (20:21)
[2022-01-31] MEDS ORDERED: Sodium Chloride 0.9% 1,000 ML IV STA (20:21)
[2022-01-31] MEDS ORDERED: Famotidine 20 MG/2 ML SDV IVPUSH ONE (20:22)
[2022-01-31] MEDS ORDERED: methylPREDNISolone Sodium Succinate 125 MG/2 ML SDV IVPUSH ONE (20:22)
[2022-01-31] MEDS ORDERED: diphenhydrAMINE 50 MG/ML SDV IVPUSH ONE (20:22)
[2022-01-31] MEDS ORDERED: Nitrofurantoin Monohydrate/Macrocrystalline 100 MG Cap PO STA (23:57)
[2022-02-01] MEDS ORDERED: Ibuprofen 600 MG Tab PO ONE (02:37)
== END 2022-02-01 02:42 | disposition home or self-care (01) ==
LOC: JD.ED 19:38
DX: N39.0 Urinary tract infection, site not specified (principal); N83.201 Unspecified ovarian cyst, right side; Z91.041 Radiographic dye allergy status; Z79.01 Long term (current) use of anticoagulants; Z79.899 Other long term (current) drug therapy
CPT/HCPCS: 36415; 74177; 76830; 80053; 81001; 83605; 83735; 85025; 85610; 85730; 86140; 87040; 87086; 87088; 87186; 93005; 96374; 96375; 99284; A9270; J1170; J1200; J2405; J2930; J3490; J7030

== ENCOUNTER 2023-01-16 20:06 | Emergency (ER) | payer MEDICAID ==
[2023-01-16] MEDS ORDERED: Albuterol/Ipratropium 3.0-0.5 MG/3 ML Neb Soln ONE (20:21)
[2023-01-16] MEDS ORDERED: Propofol 200 MG/20 ML SDV ONE (20:30)
[2023-01-16] MEDS ORDERED: EPINEPHrine 1:10,000 1 MG/10 ML Syringe ONE ×3 (20:30)
[2023-01-16] MEDS ORDERED: Rocuronium 50 MG/5 ML Vial ONE (20:30)
[2023-01-16] MEDS ORDERED: propofoL 0 ML ONE (20:32)
[2023-01-16 20:44] LABS: BASOPHILS ABSOLUTE AUTO 0.02 K/mm3 (0.01-0.08); BASOPHILS PERCENT AUTO 0.1 % (0.1-1.2); EOSINOPHILS ABSOLUTE AUTO 0.07 K/mm3 (0.04-0.36); EOSINOPHILS PERCENT AUTO 0.4 (0.7-5.8); HEMATOCRIT 47.4 % (34.1-44.9); HEMOGLOBIN 12.1 gm/dl (11.2-15.7); IMMATURE GRAN ABSOLUTE AUTO 0.06 K/mm3 (0.00-0.10); IMMATURE GRAN PERCENT AUTO 0.4 % (<=1.0); LYMPHOCYTES ABSOLUTE AUTO 1.66 K/mm3 (1.18-3.74); LYMPHOCYTES PERCENT AUTO 10.2 % (19.3-51.7); MEAN CORPUSCULAR HEMOGLOBIN 24.3 pg (25.6-32.2); MEAN CORPUSCULAR HGB CONC 25.5 g/dl (32.2-35.5); MEAN CORPUSCULAR VOLUME 95.2 fl (79.4-94.8); MEAN PLATELET VOLUME 11.3 fl (9.4-12.3); MONOCYTES ABSOLUTE AUTO 1.55 K/mm3 (0.24-0.36); MONOCYTES PERCENT AUTO 9.6 % (4.7-12.5); NEUTROPHILS ABSOLUTE AUTO 12.85 K/mm3 (1.56-6.13); NEUTROPHILS PERCENT AUTO 79.3 % (34.0-71.1); PLATELET COUNT,PLT 353 K/mm3 (182-369); RED BLOOD CELL COUNT 4.98 M/mm3 (3.98-5.22); WHITE BLOOD CELL COUNT,WBC 16.21 K/mm3 (3.98-10.04)
[2023-01-16 21:16] LABS: A/G RATIO 0.5 (1-2); ALANINE AMINOTRANSFERASE,ALT 39 U/L (14-59); ALBUMIN 2.6 g/dl (3.4-5.0); ALKALINE PHOSPHATASE 155 U/L (46-116); ANION GAP 3.5 (5-15); ASPARTATE AMNIOTRANSFERASE,AST 23 U/L (15-37); BILIRUBIN TOTAL 0.4 mg/dL (0.2-1.0); BLOOD UREA NITROGEN,BUN 16 mg/dL (7-18); BUN/CREATININE RATIO 17.8 (14-18); CHLORIDE,CL 102 mEq/L (98-107); CREATININE 0.9 mg/dL (0.55-1.02); ESTIMATED GFR 77 mL/min (>60); GLUCOSE RANDOM 168 mg/dL (70-99); POTASSIUM,K 4.5 mEq/L (3.5-5.1); PROTEIN TOTAL,TP 8.3 g/dl (6.4-8.2); SODIUM,NA 143 mEq/L (136-145)
[2023-01-16 21:18] LABS: CARBON DIOXIDE,CO2 42 mEq/L (21-32)
[2023-01-16] MEDS ORDERED: Albuterol/Ipratropium 3.0-0.5 MG/3 ML Neb Soln INH ONE (22:47)
[2023-01-16 23:30] VITALS: BP 158/68; PULSE 123
== END 2023-01-17 07:06 | disposition expired ==
LOC: JD.ED 20:06
DX: I46.9 Cardiac arrest, cause unspecified (principal); J96.90 Respiratory failure, unspecified, unspecified whether with hypoxia or hypercapnia; E78.00 Pure hypercholesterolemia, unspecified; I10 Essential (primary) hypertension; E66.9 Obesity, unspecified; Z68.30 Body mass index [BMI] 30.0-30.9, adult; Z91.041 Radiographic dye allergy status; Z79.01 Long term (current) use of anticoagulants; Z79.899 Other long term (current) drug therapy
CPT/HCPCS: 31500; 36415; 80053; 80307; 83605; 85025; 92950; 94640; 99285; J0171; J2704; J3490; J7620-GY